=== PATIENT | female | born 1970 | race African-American/Black ===

== ENCOUNTER 2017-06-08 18:58 | Inpatient (IN) | payer MEDICARE, MEDICAID ==
[~2017-06-08] VITALS: Ht 121.9 cm; Wt 52.2 kg
[2017-06-08] MEDS ORDERED: METOPROLOL TART50 M1 ORAL (19:19)
[2017-06-08] MEDS ORDERED: NUTRISOURCE FI1 EACH PO (19:19)
[2017-06-08] MEDS ORDERED: MULTIVITAMINS1 EAC8 ORAL (19:19)
[2017-06-08] MEDS ORDERED: PEPCID40 MG PO (19:19)
[2017-06-08] MEDS ORDERED: METOCLOPRA10 MG/10 M ORAL (19:19)
[2017-06-08] MEDS ORDERED: PRO-STAT LIQUID30 ML ORAL (19:19)
[2017-06-08] MEDS ORDERED: RISPERDAL0.5 MG ORAL (19:19)
[2017-06-08] MEDS ORDERED: LACTULOSE20 GM/301 ORAL (19:19)
[2017-06-08] MEDS ORDERED: LORATADINE10 M3 PO (19:19)
[2017-06-08] MEDS ORDERED: METFORMIN HCL1000 M1 ORAL (19:19)
[2017-06-08] MEDS ORDERED: NOVOLOG100 UNIT/3 SUBQ (19:19)
[2017-06-08] MEDS ORDERED: LANTUS SOL100 UNIT/1 SUBQ (19:19)
[2017-06-08] MEDS ORDERED: Mylanta II UD 30ml ORAL ONE (19:30)
[2017-06-08] MEDS ORDERED: CRANBERRY450 M4 PO (19:43)
[2017-06-08] MEDS ORDERED: VALPROIC ACID250 MG PO (19:43)
[2017-06-08] MEDS ORDERED: CYCLOBENZAPRINE10 MG ORAL (19:43)
[2017-06-08] MEDS ORDERED: TRAMADOL HCL50 MG ORAL (19:43)
[2017-06-08] MEDS ORDERED: ACIDOPHILUS1 EAC6 PO (19:43)
[2017-06-08] MEDS ORDERED: ASPIRIN81 MG ORAL (19:43)
[2017-06-08] MEDS ORDERED: DILAUDID4 MG ORAL (19:43)
[2017-06-08] MEDS ORDERED: ZOLOFT100 MG ORAL (19:43)
[2017-06-08] MEDS ORDERED: ACETAMINOPHEN325 M1 ORAL (19:43)
[2017-06-08] MEDS ORDERED: VOLTAREN100 G1 TP (19:43)
[2017-06-08] MEDS ORDERED: VITAMIN B COMP1 EAC2 ORAL (19:43)
[2017-06-08] MEDS ORDERED: ARTIFICIAL TEAR15 ML BOTH EYES (19:43)
[2017-06-08] MEDS ORDERED: ATORVASTATIN CA10 MG ORAL (19:43)
[2017-06-08] MEDS ORDERED: ASCORBIC ACID500 MG ORAL (19:43)
[2017-06-08] MEDS ORDERED: FLONASE ALLERG9.9 ML NS (19:43)
[2017-06-08] MEDS ORDERED: SENNA8.6 M2 PO (19:43)
[2017-06-08] MEDS ORDERED: COZAAR25 MG ORAL (19:43)
[2017-06-08 20:00] LABS: APPEARANCE,URINE VERY CLOUDY; BASOPHILS % (AUTO) 1.2 % (0.0-2.0); BILIRUBIN, URINE NEGATIVE (NEGATIVE); COLOR,URINE PALE YELLOW; EOSINOPHILS % (AUTO) 1.2 % (0.0-3.0); GLUCOSE, URINE (UA) NEGATIVE (NEGATIVE); HEMATOCRIT 42.6 % (37.0-47.0); KETONES,URINE NEGATIVE (NEGATIVE); LEUKOCYTE ESTERASE ,URINE 2+ (NEGATIVE); MEAN CORPUSCULAR VOLUME 82 FL (80-99); MONOCYTES % (AUTO) 8.8 % (1.0-10.0); NEUTROPHILS % (AUTO) 55.8 % (45.0-75.0); NITRITE,URINE NEGATIVE (NEGATIVE); PH,URINE 7 (4.5-8.0); PLATELET COUNT 335 K/UL (150-450); PROTEIN,URINE 1+ (NEGATIVE); RED BLOOD COUNT 5.21 M/UL (4.20-5.40); RED CELL DISTRIBUTION WIDTH 13.8 % (11.6-14.8); UROBILINOGEN,URINE NORMAL MG/DL (0.0-1.0); WHITE BLOOD COUNT 8.7 K/UL (4.8-10.8)
[2017-06-08 20:05] LABS: ANION GAP 10 mmol/L (5-15); BLOOD UREA NITROGEN 12 mg/dL (7-18); CALCIUM 8.5 MG/DL (8.5-10.1); CARBON DIOXIDE 28 MMOL/L (21-32); CHLORIDE 99 MMOL/L (98-107); CREATININE 0.5 MG/DL (0.55-1.30); POTASSIUM 4.1 MMOL/L (3.5-5.1); SODIUM 137 MMOL/L (136-145)
[2017-06-08 20:07] LABS: INR 0.9 (0.9-1.1)
[2017-06-08 20:15] LABS: ALANINE AMINOTRANSFERASE 16 U/L (12-78); ALBUMIN 3.5 G/DL (3.4-5.0); ALBUMIN/GLOBULIN RATIO 0.8 (1.0-2.7); ALKALINE PHOSPHATASE 89 U/L (46-116); ASPARTATE AMINO TRANSFERASE 12 U/L (15-37); BILIRUBIN,TOTAL 0.2 MG/DL (0.2-1.0); CREATINE KINASE 23 U/L (26-308)
[2017-06-08] MEDS ORDERED: Morphine Sulfate 4mg/ml Inj IM ONE (20:15)
--- NOTE | 2017-06-08 21:29 | Emergency Room Report ---
History of Present Illness General Chief Complaint: Chest Pain Source: Patient, Medical Record, EMS Present Illness HPI Patient presents with chest pain. This has been for a week. It's worse today. She received aspirin and nitroglycerin in the field. It was a 10/10 and was reduced to 4/10 after treatment by paramedics. She minimally exerts herself. It's somewhat worse with swallowing and she feels radiate up into the center part of her chest from her stomach. Just some fullness in her stomach. There is no change in her bowels. Denies any vomiting, hematemesis, melena, hematochezia. The patient also states that she's recently treated with Macrobid. She claims that she had a urinary tract infection a week ago. She still thinks that she has a urinary tract infection at this time. She denies any fevers or chills. Chronic weakness. Spina bifida with short stature. DIRECT SUPPORT STAFF shunt. No headaches. No rashes, joint pain. Allergies: Coded Allergies: IODINE (Verified Allergy, Unknown, 01/15/11) LATEX (Verified Allergy, Unknown, 08/06/08) PENICILLINS (Verified Allergy, Unknown, 08/06/08) Patient History Past Medical History: see triage record Past Surgical History: other - Rashid rods and ventricular peritoneal shunt Social History: Denies: smoking, alcohol use, drug use Social History Narrative half-way facility Reviewed Nursing Documentation: PMH: Agreed; PSxH: Agreed Nursing Documentation-PM Past Medical History: No History, Except For Review of Systems All Other Systems: negative except mentioned in HPI Physical Exam Vital Signs Date Time Temp Pulse Resp B/P (MAP) Pulse Ox O2 Delivery O2 Flow Rate FiO2 06/08/17 18:59 97.5 110 16 106/45 97 Room Air 97.5 Sp02 EP Interpretation: reviewed, normal General Appearance: alert, GCS 15, other - Short stature with underdevelopment of lower extremities and left hemiparesis, Chronically Ill Eyes: bilateral eye normal inspection, bilateral eye PERRL, bilateral eye abnormal EOM - nystagmus ENT: moist mucus membranes Neck: supple Respiratory: chest non-tender, lungs clear, normal breath sounds Cardiovascular #1: tachycardia Cardiovascular #2: 2+ radial (R); 1+ femoral (R), 1+ femoral (L) Gastrointestinal: normal bowel sounds, non tender, soft Genitourinary: no CVA tenderness, other - robertson Musculoskeletal: back normal, other - Short stature with underdevelopment of lower extremities, X flexor contractures of the left upper arm Neurologic: alert, oriented x3, sensory intact, motor weakness - Lower extremities and left upper arm, other - lateral nystagmus Psychiatric: mood/affect normal Reflexes: 0 knee (R), 0 knee (L), 0 ankle (R), 0 ankle (L) Skin: normal color, no rash Medical Decision Making Diagnostic Impression: Primary Impression: Chest pain Qualified Codes: R07.89 - Other chest pain Additional Impressions: UTI (urinary tract infection) Qualified Codes: T83.511A - Infection and inflammatory reaction due to indwelling urethral catheter, initial encounter; N39.0 - Urinary tract infection , site not specified Spina bifida Qualified Codes: Q05.4 - Unspecified spina bifida with hydrocephalus ER Course Patient presents with chest pain. History is atypical however we need to exclude cardiac cause with EKG and labs. In addition a chest x-ray will be obtained. The patient retreated with Pepcid Zofran Mylanta. EKG shows no acute injury. Chest x-ray shows possible right-sided effusion with DIRECT SUPPORT STAFF shunt and Rashid rods. Labs are significant for negative troponin. Lactate was done because of the possibility of urinary tract infections and is elevated. Labs were drawn and IV was unable to be established. Due to elevated lactate IV and IV antibiotics are indicated. Fluids are begun and IV antibiotics are ordered. The patient is admitted to medical floor to the care of Dr. Haddad. Laboratory Tests Test 06/08/17 19:27 06/08/17 23:31 White Blood Count 8.7 K/UL (4.8-10.8) Red Blood Count 5.21 M/UL (4.20-5.40) Hemoglobin 13.0 G/DL (12.0-16.0) Hematocrit 42.6 % (37.0-47.0) Mean Corpuscular Volume 82 FL (80-99) Mean Corpuscular Hemoglobin 24.9 PG (27.0-31.0) L Mean Corpuscular Hemoglobin Concent 30.4 G/DL (32.0-36.0) L Red Cell Distribution Width 13.8 % (11.6-14.8) Platelet Count 335 K/UL (150-450) Mean Platelet Volume 5.9 FL (6.5-10.1) L Neutrophils (%) (Auto) 55.8 % (45.0-75.0) Lymphocytes (%) (Auto) 33.0 % (20.0-45.0) Monocytes (%) (Auto) 8.8 % (1.0-10.0) Eosinophils (%) (Auto) 1.2 % (0.0-3.0) Basophils (%) (Auto) 1.2 % (0.0-2.0) Prothrombin Time 9.1 SEC (9.30-11.50) L Prothrombin Time INR 0.9 (0.9-1.1) PTT 25 SEC (23-33) Urine Color Pale yellow Urine Appearance Very cloudy Urine pH 7 (4.5-8.0) Urine Specific [place] 1.010 (1.005-1.035) Urine Protein 1+ (NEGATIVE) H Urine Glucose (UA) Negative (NEGATIVE) Urine Ketones Negative (NEGATIVE) Urine Occult Blood 1+ (NEGATIVE) H Urine Nitrite Negative (NEGATIVE) Urine Bilirubin Negative (NEGATIVE) Urine Urobilinogen Normal MG/DL (0.0-1.0) Urine Leukocyte Esterase 2+ (NEGATIVE) H Urine RBC 2-4 /HPF (0 - 2) H Urine WBC 5-10 /HPF (0 - 2) H Urine Squamous Epithelial Cells None /LPF (NONE/OCC) Urine Calcium Oxalate Crystals Few /LPF (NONE) Urine Amorphous Sediment Many /LPF (NONE) H Urine Bacteria Many /HPF (NONE) H Sodium Level 137 MMOL/L (136-145) Potassium Level 4.1 MMOL/L (3.5-5.1) Chloride Level 99 MMOL/L (98-107) Carbon Dioxide Level 28 MMOL/L (21-32) Anion Gap 10 mmol/L (5-15) Blood Urea Nitrogen 12 mg/dL (7-18) Creatinine 0.5 MG/DL (0.55-1.30) L Estimate Glomerular Filtration Rate > 60 mL/min (>60) Glucose Level 126 MG/DL (74-106) H Lactic Acid Level 3.20 mmol/L (0.66-2.22) H 1.50 mmol/L (0.66-2.22) Calcium Level 8.5 MG/DL (8.5-10.1) Total Bilirubin 0.2 MG/DL (0.2-1.0) Aspartate Amino Transferase (AST) 12 U/L (15-37) L Alanine Aminotransferase (ALT) 16 U/L (12-78) Alkaline Phosphatase 89 U/L (46-116) Total Creatine Kinase 23 U/L (26-308) L Troponin I 0.000 ng/mL (0.000-0.056) Pro-B-Type Natriuretic Peptide 47 pg/mL (0-125) Total Protein 8.1 G/DL (6.4-8.2) Albumin 3.5 G/DL (3.4-5.0) Globulin 4.6 g/dL Albumin/Globulin Ratio 0.8 (1.0-2.7) L EKG Diagnostic Results Rate: tachycardiac Rhythm: other ST Segments: no acute changes Rhythm Strip Diag. Results EP Interpretation: yes Rhythm: no PVC's, no ectopy, other - Sinus tachycardia Chest X-Ray Diagnostic Results Chest X-Ray Diagnostic Results : Chest X-Ray Ordered: Yes # of Views/Limited/Complete: 1 View Indication: Chest Pain Interpretation: no consolidation, no pneumothorax, other - DIRECT SUPPORT STAFF shunt, right effusi and Rashid rods Impression: Other Electronically Signed by: Electronically signed by Odin Silva MD Last Vital Signs Date Time Temp Pulse Resp B/P (MAP) Pulse Ox O2 Delivery O2 Flow Rate FiO2 06/09/17 01:09 96.4 107 17 132/83 97 Room Air 2.0 96.4 Status: improved Disposition: ADMITTED INPATIENT Condition: Serious Referrals: NON PHYSICIAN (PCP) Odin Silva M.D. Jun 08, 2017 21:29
[2017-06-08] MEDS ORDERED: Sodium Chloride 500ML 500 ML IV ONE (22:45)
[2017-06-08] MEDS ORDERED: Vancomycin 500 MG in NS 110 ML IVPB ONE (22:45)
[2017-06-08] MEDS ORDERED: Morphine Sulfate 2mg/ml Inj IVP ONE (23:15)
[2017-06-08 23:56] VITALS: BP 123/79
[2017-06-09 00:34] VITALS: BP 132/83
[2017-06-09] MEDS ORDERED: Cyclobenzaprine 10mg Tab ORAL PRN (03:45)
[2017-06-09] MEDS ORDERED: Metoclopramide 10mg/10ml Liq ORAL PRN (03:45)
[2017-06-09] MEDS ORDERED: Milk of Magnesia 30ml Ud ORAL PRN (03:45)
[2017-06-09] MEDS ORDERED: Zolpidem 5mg tab ORAL PRN (03:45)
[2017-06-09] MEDS ORDERED: Lactulose 20gm/30ml UDC ORAL PRN (03:45)
[2017-06-09] MEDS ORDERED: traMADol 50mg tab ORAL PRN (03:45)
[2017-06-09] MEDS ORDERED: Norco 5mg/325mg tab ORAL PRN (03:45)
[2017-06-09 04:30] VITALS: BP 128/72
[2017-06-09] MEDS: NovoLOG Insulin Flexpen SUBQ SCH ×4 (06:11→21:00)
[2017-06-09] MEDS: Norco 5mg/325mg tab ORAL PRN ×2 (06:15→23:18)
[2017-06-09] MEDS ORDERED: NovoLOG Insulin Flexpen SUBQ SCH (06:30)
[2017-06-09 08:00] VITALS: BP 101/51
[2017-06-09] MEDS: Artificial Tears 1.4% Op Soln BOTH EYES SCH ×3 (09:00→17:51)
[2017-06-09] MEDS: Losartan 25mg tab ORAL SCH (09:00)
[2017-06-09] MEDS: Metoprolol Tartrate 50mg tab ORAL SCH (09:00)
[2017-06-09] MEDS ORDERED: Flonase Nasal Inhaler 16gm NASAL PRN (09:00)
--- NOTE | 2017-06-09 09:20 | Diagnostic Imaging Report ---
Indication: Reason For Exam: CP Technique: XRAY Chest 1v Comparison:09/30/2011 Findings: The heart is normal in size. There are Rashid rods in the spine. Haziness is noted in the right lung base. There is a ventriculoperitoneal shunt tube over the right chest. Left lung is clear. There is slight blunting of the right costophrenic angle. There is gaseous distention of the stomach. Impression: Rashid rods in the spine. Haziness the right base with slight blunting of the right costophrenic angle. This may represent atelectasis or pleural fluid or early infiltrate. Gastric distention. 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
[2017-06-09] MEDS: Sennosides 8.6mg ORAL SCH ×2 (09:39→17:52)
[2017-06-09] MEDS: Lactobacillus-GG tablet ORAL SCH (09:39)
[2017-06-09] MEDS: Aspirin Baby 81mg ORAL SCH (09:40)
[2017-06-09] MEDS: Sertraline 100mg tab ORAL SCH (09:40)
[2017-06-09] MEDS: Multivitamin w/Minerals tab ORAL SCH (09:40)
[2017-06-09] MEDS: Ascorbic Acid 500mg tab ORAL SCH ×2 (09:40→17:51)
[2017-06-09] MEDS: metFORMIN 500mg tab ORAL SCH ×2 (09:40→17:51)
[2017-06-09] MEDS: Heparin 5000 units/ml inj SUBQ SCH ×2 (09:41→21:30)
[2017-06-09 12:00] VITALS: BP 103/54
[2017-06-09 12:31] LABS: ANION GAP 6 mmol/L (5-15); BLOOD UREA NITROGEN 7 mg/dL (7-18); CALCIUM 7.7 MG/DL (8.5-10.1); CARBON DIOXIDE 27 MMOL/L (21-32); CHLORIDE 107 MMOL/L (98-107); CREATININE 0.3 MG/DL (0.55-1.30); POTASSIUM 4.6 MMOL/L (3.5-5.1); SODIUM 140 MMOL/L (136-145)
[2017-06-09 12:47] LABS: BASOPHILS % (AUTO) 0.6 % (0.0-2.0); EOSINOPHILS % (AUTO) 1.6 % (0.0-3.0); HEMATOCRIT 36.8 % (37.0-47.0); HEMOGLOBIN 11.5 G/DL (12.0-16.0); LYMPHOCYTES % (AUTO) 30.3 % (20.0-45.0); MEAN CORPUSCULAR VOLUME 83 FL (80-99); NEUTROPHILS % (AUTO) 56.5 % (45.0-75.0); PLATELET COUNT 253 K/UL (150-450); RED BLOOD COUNT 4.45 M/UL (4.20-5.40); RED CELL DISTRIBUTION WIDTH 13.8 % (11.6-14.8); WHITE BLOOD COUNT 6.3 K/UL (4.8-10.8)
[2017-06-09 16:00] VITALS: BP 97/49
--- NOTE | 2017-06-09 16:45 | Consultation ---
DATE OF CONSULTATION: 06/09/2017 INFECTIOUS DISEASES CONSULTATION CONSULTING PHYSICIAN: Morgan Goyal M.D. REFERRING PHYSICIAN: Sebastian Haddad M.D. REASON FOR CONSULTATION: Urinary tract infection. HISTORY OF PRESENTING ILLNESS: This is a 46-year-old lady with history of spina bifida, status post MOLD MAKER shunt placement, who came in with urinary tract infection. She was recently treated with Macrobid. An Infectious Diseases consultation has been obtained for antibiotics. PAST MEDICAL HISTORY: 1. History of spina bifida. 2. MOLD MAKER shunt placement. 3. History of Rashid caitlyn. SOCIAL HISTORY: She does not smoke, drink, or use drugs. FAMILY HISTORY: Noncontributory. REVIEW OF SYSTEMS: CONSTITUTIONAL: No fever or chills. RESPIRATORY: She does have cough and shortness of breath. CARDIAC: No chest pain. No palpitation. No dizziness. No syncope. GASTROINTESTINAL: She did have nausea and vomiting yesterday. No abdominal pain or diarrhea. MEDICATIONS: As an inpatient, she is on atorvastatin, Risperdal, ascorbic acid, aspirin, Artificial Tears, losartan, metformin, metoprolol, multivitamin, Senokot, Zoloft, vitamin B complex, cefepime, Protonix, subcutaneous heparin, famotidine, fluticasone, Lactobacillus, insulin, valproic acid, Tylenol, Flexeril, lactulose, Reglan, Zofran, [place], Ambien, Mylanta, milk of magnesia. ALLERGIES: 1. Penicillin. 2. Latex. 3. Iodine. PHYSICAL EXAMINATION: VITAL SIGNS: Temperature of 97.2, T-max of 98.9, pulse of 89, respiratory rate 16, blood pressure 101/51, O2 saturation of 99%. HEENT: Pupils equally reactive to light and accommodation. Mouth appears clean without thrush. NECK: Supple. No adenopathy. No JVD. CARDIOVASCULAR: Regular rate and rhythm. No murmurs. LUNGS: Clear to auscultation bilaterally. No crackles. No wheezes. ABDOMEN: Soft and nontender. No organomegaly. Ostomy noted. EXTREMITIES: No cyanosis, no clubbing, no edema. LABORATORY DATA: White count 8.7, hemoglobin 13, hematocrit 42.6, MCV 82, platelet count of 335,000 with neutrophils of 55%. Sodium 137, potassium 4.1, chloride 99, bicarbonate 28, BUN 12, creatinine 0.5, glucose 126, calcium 8.5, total bilirubin 0.2, AST 12, ALT 16, alkaline phosphatase 89. CK of 23 troponin 0 by admitted peptide 47 total protein 8.1. Albumin 3.5 UA showing 5 to 10 white cells. Urine culture growing gram-negative rods more than 100,000 colonies. Chest x-ray showing Rashid rods in the spine, haziness in the right base with blunting of the CP angle, this may represent atelectasis or early infiltrate, MOLD MAKER shunt placement. ASSESSMENT: This is a 46-year-old lady with history of spina bifida and MOLD MAKER shunt placement, who comes in with: 1. Gram-negative urinary tract infection. 2. Spina bifida. 3. Possible pneumonia. PLAN: 1. Continue cefepime. 2. We will follow up cultures and adjust antibiotics accordingly. I would like to thank Dr. Haddad for this consultation. Morgan Goyal M.D. DR: Jessica JOB#: [id number] CC: Sebastian Haddad M.D.; Fax#: [phone]
--- NOTE | 2017-06-09 17:45 | History and Physical Report ---
DATE OF ADMISSION: 06/08/2017 REASON FOR ADMISSION: Urinary tract infection and pain. HISTORY OF PRESENT ILLNESS: This is a 46-year-old female. She resides in a [facility]dc. The patient has a history of TILE INSTALLER shunt, Rashid caitlyn. She has chronic pain. The patient notes that she is having chest discomfort. The patient has taken aspirin and nitroglycerin in the field, although not fully improved. The patient notes the pain is radiating throughout her body. She has fullness in her stomach. The patient is seen and evaluated, is felt to have urinary tract infection. In the emergency room, the patient has a right-sided effusion, TILE INSTALLER shunt, and Rashid caitlyn. The patient was given IV antibiotics and admitted to the floor. She has no significant shortness of breath. The patient's oxygenation is adequate. PAST MEDICAL HISTORY: Noted and reviewed. Notable for Rashid caitlyn, spina bifida, TILE INSTALLER shunt, hypercholesterolemia, muscle spasms, chronic rhinitis, diabetes, and hypertension. MEDICATIONS: Reviewed. ALLERGIES: Reviewed. SOCIAL HISTORY: The patient is a [facility]dc patient. The patient is fully disabled. REVIEW OF SYSTEMS: Otherwise negative. PHYSICAL EXAMINATION: GENERAL: A well-developed female, comfortable at present. VITAL SIGNS: 99% on room air, blood pressure 101/51, temperature 97.2, pulse 89, and respirations 16. HEENT: Negative. NECK: Supple. No adenopathy. HEENT: Extraocular movements are grossly intact. LUNGS: With fairly good air entry overall. No rhonchi or wheezes. CARDIAC: S1, S2. Regular rhythm without murmurs, rubs, or gallops. ABDOMEN: Soft, nontender, and nondistended. EXTREMITIES: No cyanosis, clubbing, or edema. NEUROLOGICAL: Weak diffusely, but able to move all extremities. Alert. Able to verbalize needs. LABORATORY DATA: Reviewed. CBC essentially normal. Electrolytes fairly normal, although the lactic acid is elevated. The patient's urinalysis appears to be consistent with urinary tract infection with 5 to 10 white cells. IMPRESSION: 1. Possible urinary tract infection, severe pain, chronic overall. 2. History of Rashid caitlyn. 3. Spina bifida per history. 4. Hypercholesteremia. 5. Diabetes. 6. Hypertension per history. 7. Ventriculoperitoneal shunt. RECOMMENDATIONS: Supportive care. Pain control. IV antibiotics. ID evaluation. Obtain duplex lower extremity to rule out DVT. Maintain all medications from the fdc. Monitor clinically. Monitor blood pressure. Monitor blood sugars and support clinically. Sebastian Haddad M.D. DR: BALTAZAR JOB#: [id number] CC:
--- NOTE | 2017-06-09 18:07 | Cardiology Report ---
APPROVED REPORT EKG Measurement Heart [id number] Sinus tachycardia Low voltage QRS Nonspecific T wave abnormality Abnormal ECG
[2017-06-09 21:00] VITALS: BP 101/64
[2017-06-09] MEDS: Levemir Flexpen SUBQ SCH (21:30)
[2017-06-10] VITALS: BP 103/51
[2017-06-10 04:00] VITALS: BP 100/59
[2017-06-10] MEDS: NovoLOG Insulin Flexpen SUBQ SCH ×4 (06:30→21:00)
[2017-06-10 08:43] VITALS: BP 101/42
[2017-06-10] MEDS: metFORMIN 500mg tab ORAL SCH ×2 (08:52→17:18)
[2017-06-10] MEDS: Sertraline 100mg tab ORAL SCH (08:52)
[2017-06-10] MEDS: Ascorbic Acid 500mg tab ORAL SCH ×2 (08:52→17:18)
[2017-06-10] MEDS: Sennosides 8.6mg ORAL SCH ×2 (08:52→17:18)
[2017-06-10] MEDS: Aspirin Baby 81mg ORAL SCH (08:52)
[2017-06-10] MEDS: Multivitamin w/Minerals tab ORAL SCH (08:52)
[2017-06-10] MEDS: Lactobacillus-GG tablet ORAL SCH (08:52)
[2017-06-10] MEDS: Metoprolol Tartrate 50mg tab ORAL SCH (08:53)
[2017-06-10] MEDS: Losartan 25mg tab ORAL SCH (08:53)
[2017-06-10] MEDS: Heparin 5000 units/ml inj SUBQ SCH ×2 (08:54→20:59)
[2017-06-10] MEDS: Artificial Tears 1.4% Op Soln BOTH EYES SCH ×3 (08:54→17:18)
--- NOTE | 2017-06-10 09:16 | Infectious Diseases Prog Note ---
Assessment/Plan Assessment/Plan A; E. 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 INSTRUCTOR shunt P: continue Cefepime Subjective ROS Limited/Unobtainable: Yes Allergies: Coded Allergies: IODINE (Verified Allergy, Unknown, 01/15/11) LATEX (Verified Allergy, Unknown, 08/06/08) PENICILLINS (Verified Allergy, Unknown, 08/06/08) Uncoded Allergies: LACTOSE INTOLERANT (Allergy, Unknown, 06/10/17) POLLEN (Allergy, Unknown, 06/10/17) Objective Vital Signs Last 24 Hour Vital Signs Date Time Temp Pulse Resp B/P (MAP) Pulse Ox O2 Delivery O2 Flow Rate FiO2 06/10/17 08:53 86 101/42 06/10/17 08:53 101/42 06/10/17 08:43 86 101/42 06/10/17 04:00 97.0 92 19 100/59 99 97.0 06/10/17 00:00 98.2 96 18 103/51 97 98.2 06/09/17 21:00 98.1 91 18 101/64 100 98.1 06/09/17 16:00 Nasal Cannula 2.0 06/09/17 16:00 98.1 94 18 97/49 100 98.1 06/09/17 12:00 Nasal Cannula 2.0 06/09/17 12:00 97.9 91 18 103/54 100 97.9 Height (Feet): 4 Height (Inches): 0.00 Weight (Pounds): 115 General Appearance: no acute distress HEENT: mucous membranes moist Respiratory/Chest: lungs clear Cardiovascular: normal rate Abdomen: soft, non tender Genitourinary: other - cystostomy Extremities: no edema Neurologic/Psychiatric: alert, responsive Microbiology Date/Time Source Procedure Growth Status 06/08/17 19:27 Urine,Clean Catch Urine Culture - Final Escherichia Coli Complete Laboratory Tests Test 06/09/17 11:50 White Blood Count 6.3 K/UL (4.8-10.8) Red Blood Count 4.45 M/UL (4.20-5.40) Hemoglobin 11.5 G/DL (12.0-16.0) L Hematocrit 36.8 % (37.0-47.0) L Mean Corpuscular Volume 83 FL (80-99) Mean Corpuscular Hemoglobin 25.9 PG (27.0-31.0) L Mean Corpuscular Hemoglobin Concent 31.4 G/DL (32.0-36.0) L Red Cell Distribution Width 13.8 % (11.6-14.8) Platelet Count 253 K/UL (150-450) Mean Platelet Volume 6.2 FL (6.5-10.1) L Neutrophils (%) (Auto) 56.5 % (45.0-75.0) Lymphocytes (%) (Auto) 30.3 % (20.0-45.0) Monocytes (%) (Auto) 11.0 % (1.0-10.0) H Eosinophils (%) (Auto) 1.6 % (0.0-3.0) Basophils (%) (Auto) 0.6 % (0.0-2.0) Sodium Level 140 MMOL/L (136-145) Potassium Level 4.6 MMOL/L (3.5-5.1) Chloride Level 107 MMOL/L (98-107) Carbon Dioxide Level 27 MMOL/L (21-32) Anion Gap 6 mmol/L (5-15) Blood Urea Nitrogen 7 mg/dL (7-18) Creatinine 0.3 MG/DL (0.55-1.30) L Estimat Glomerular Filtration Rate > 60 mL/min (>60) Glucose Level 87 MG/DL (74-106) Hemoglobin A1c 6.5 % (4.3-6.0) H Calcium Level 7.7 MG/DL (8.5-10.1) L Current Medications Medications (Trade) Dose Ordered Sig/Jeniffer Route PRN Reason Start Time Stop Time Status Last Admin Dose Admin Acetaminophen (Tylenol) 650 mg Q6H PRN ORAL Mild Pain/Temp > 100.5 06/09/17 03:45 07/09/17 03:44 Acetaminophen/ Hydrocodone Bitart ([place] 5/325) 1 tab Q4H PRN ORAL Moderate Pain (Pain Scale 4-6) 06/09/17 03:45 06/16/17 03:44 06/09/17 17:56 Acetaminophen/ Hydrocodone Bitart ([place] 5/325) 2 tab Q4H PRN ORAL Severe Pain (Pain Scale 7-10) 06/09/17 03:45 06/16/17 03:44 06/09/17 23:18 Al Hydroxide/Mg Hydroxide (Mylanta) 30 ml Q4HR PRN ORAL For Pain 06/09/17 03:45 07/09/17 03:44 Artificial Tears ([place]-Tears) 1 drop TID BOTH EYES 06/09/17 09:00 07/09/17 08:59 06/10/17 08:54 Ascorbic Acid (Vitamin C) 500 mg TWICE A DAY ORAL 06/09/17 09:00 07/09/17 08:59 06/10/17 08:52 Aspirin (ASA) 81 mg DAILY ORAL 06/09/17 09:00 07/09/17 08:59 06/10/17 08:52 Atorvastatin Calcium (Lipitor) 10 mg BEDTIME ORAL 06/09/17 21:00 07/09/17 20:59 06/09/17 21:24 Cefepime HCl 1 gm/ Dextrose 50 ml @ 100 mls/hr Q24H IVPB 06/09/17 09:00 06/16/17 08:59 06/10/17 08:58 Cyclobenzaprine HCl (Flexeril) 10 mg Q6H PRN ORAL Muscle Spasm 06/09/17 03:45 07/09/17 03:44 Dextrose (Dextrose 50%) STAT PRN IV Hypoglycemia 06/09/17 03:45 07/09/17 03:44 Famotidine (Pepcid) 20 mg DAILY ORAL 06/09/17 09:00 07/09/17 08:59 06/10/17 08:52 Fluticasone Propionate (Flonase) 2 spray DAILY PRN NASAL ALLERGY 06/09/17 09:00 07/09/17 08:59 Heparin Sodium (Porcine) (Heparin 5000 units/ml) 5,000 units EVERY 12 HOURS SUBQ 06/09/17 09:00 07/09/17 08:59 06/10/17 08:54 Insulin Aspart (NovoLOG) BEFORE MEALS AND HS SUBQ 06/09/17 06:30 07/09/17 06:29 Insulin Detemir (Levemir) 12 units BEDTIME SUBQ 06/09/17 21:00 07/09/17 20:59 06/09/17 21:30 Lactobacillus Acidophilus (Culturelle) 1 tab DAILY ORAL 06/09/17 09:00 07/09/17 08:59 06/10/17 08:52 Lactulose (Cephulac) 20 gm DAILY PRN ORAL Constipation 06/09/17 03:45 07/09/17 03:44 Losartan Potassium (Cozaar) 25 mg DAILY ORAL 06/09/17 09:00 07/09/17 08:59 Magnesium Hydroxide (Mom) 30 ml DAILYPRN PRN ORAL Constipation 06/09/17 03:45 07/09/17 03:44 Metformin HCl (Glucophage) 1,000 mg BID ORAL 06/09/17 09:00 07/09/17 08:59 06/10/17 08:52 Metoclopramide HCl (Reglan) 10 mg EVERY 6 HOURS PRN ORAL Nausea & Vomiting 06/09/17 03:45 07/09/17 03:44 Metoprolol Tartrate (Lopressor) 50 mg DAILY ORAL 06/09/17 09:00 07/09/17 08:59 Multivitamins Therapeutic (Therapeutic Multivitamin) 1 ea DAILY ORAL 06/09/17 09:00 07/09/17 08:59 06/10/17 08:52 Ondansetron HCl (Zofran) 4 mg Q6H PRN IVP Nausea & Vomiting 06/09/17 03:45 07/09/17 03:44 Pantoprazole (Protonix) 40 mg DAILY ORAL 06/09/17 09:00 07/09/17 08:59 06/10/17 08:52 Risperidone (RisperDAL) 0.5 mg QHS ORAL 06/09/17 21:00 07/09/17 20:59 06/09/17 21:26 Sennosides (Senokot) 1 tab BID ORAL 06/09/17 09:00 07/09/17 08:59 06/10/17 08:52 Sertraline HCl (Zoloft) 100 mg DAILY ORAL 06/09/17 09:00 07/09/17 08:59 06/10/17 08:52 Sodium Chloride 1,000 ml @ 100 mls/hr Q10H IV 06/09/17 06:00 07/09/17 05:59 06/10/17 05:25 Valproic Acid (Depakene) 250 mg Q8HR ORAL 06/09/17 06:00 07/09/17 05:59 06/10/17 05:21 Vitamin B Complex (Vitamin B Complex) 1 ea DAILY ORAL 06/09/17 09:00 07/09/17 08:59 06/10/17 08:52 Zolpidem Tartrate (Ambien) 5 mg HSPRN PRN ORAL Insomnia 06/09/17 03:45 06/16/17 03:44 JULISA HARGROVE Jun 10, 2017 09:16
[2017-06-10 12:00] VITALS: BP 97/42
--- NOTE | 2017-06-10 12:15 | General Progress Note ---
Assessment/Plan Assessment/Plan IMPRESSION: 1. urinary tract infection 2. History of Rashid caitlyn. 3. Spina bifida per history. 4. Hypercholesteremia. 5. Diabetes. 6. Hypertension per history. 7. Ventriculoperitoneal shunt. PLAN ID noted po antibiotics in am pain management dc planning to snf in am if all stable impression, plan, and exam edited and reviewed in detail care discussed with RN Subjective Allergies: Coded Allergies: IODINE (Verified Allergy, Unknown, 01/15/11) LATEX (Verified Allergy, Unknown, 08/06/08) PENICILLINS (Verified Allergy, Unknown, 08/06/08) Uncoded Allergies: LACTOSE INTOLERANT (Allergy, Unknown, 06/10/17) POLLEN (Allergy, Unknown, 06/10/17) Subjective care noted stable pain better ID noted Objective Last 24 Hour Vital Signs Date Time Temp Pulse Resp B/P (MAP) Pulse Ox O2 Delivery O2 Flow Rate FiO2 06/10/17 08:53 86 101/42 06/10/17 08:53 101/42 06/10/17 08:43 86 101/42 06/10/17 04:00 97.0 92 19 100/59 99 97.0 06/10/17 00:00 98.2 96 18 103/51 97 98.2 06/09/17 21:00 98.1 91 18 101/64 100 98.1 06/09/17 16:00 Nasal Cannula 2.0 06/09/17 16:00 98.1 94 18 97/49 100 98.1 Intake and Output 06/09/17 06/10/17 19:00 07:00 Intake Total 1290 ml 1560 ml Output Total 500 ml 600 ml Balance 790 ml 960 ml Intake Oral 90 ml 360 ml IV Total 1200 ml 1200 ml Output Urine Total 500 ml 600 ml Height (Feet): 4 Height (Inches): 0.00 Weight (Pounds): 115 Objective GENERAL: A well-developed female, comfortable at present. HEENT: Negative. NECK: Supple. No adenopathy. HEENT: Extraocular movements are grossly intact. LUNGS: With fairly good air entry overall. No rhonchi or wheezes. CARDIAC: S1, S2. Regular rhythm without murmurs, rubs, or gallops. ABDOMEN: Soft, nontender, and nondistended. EXTREMITIES: No cyanosis, clubbing, or edema. NEUROLOGICAL: Weak and able to move all extremities. Alert. Able to verbalize needs. ASHLEY PAPPAS Jun 10, 2017 12:15
[2017-06-10 16:00] VITALS: BP 94/51
[2017-06-10] MEDS: Norco 5mg/325mg tab ORAL PRN (17:29)
[2017-06-10 20:00] VITALS: BP 122/61
[2017-06-10] MEDS: Levemir Flexpen SUBQ SCH (21:00)
[2017-06-11] VITALS: BP 117/57
[2017-06-11] MEDS: NovoLOG Insulin Flexpen SUBQ SCH ×3 (06:06→16:30)
[2017-06-11] MEDS: Artificial Tears 1.4% Op Soln BOTH EYES SCH ×3 (08:22→17:33)
[2017-06-11] MEDS: Losartan 25mg tab ORAL SCH (08:23)
[2017-06-11] MEDS: Sertraline 100mg tab ORAL SCH (08:24)
[2017-06-11] MEDS: Aspirin Baby 81mg ORAL SCH (08:24)
[2017-06-11] MEDS: Lactobacillus-GG tablet ORAL SCH (08:24)
[2017-06-11] MEDS: Metoprolol Tartrate 50mg tab ORAL SCH (08:24)
[2017-06-11] MEDS: Multivitamin w/Minerals tab ORAL SCH (08:24)
[2017-06-11] MEDS: metFORMIN 500mg tab ORAL SCH ×2 (08:24→17:32)
[2017-06-11] MEDS: Ascorbic Acid 500mg tab ORAL SCH ×2 (08:25→17:32)
[2017-06-11] MEDS: Sennosides 8.6mg ORAL SCH ×2 (08:25→17:32)
[2017-06-11] MEDS: Heparin 5000 units/ml inj SUBQ SCH (08:26)
[2017-06-11 08:33] VITALS: BP 117/58
--- NOTE | 2017-06-11 12:34 | Infectious Diseases Prog Note ---
Assessment/Plan Assessment/Plan antibiotics : cefepime A 1. e.coli UTI 2. pneumonia 3. spina bifida P 1. d/c cefepime 2. start and continue ceftriaxone 4 more days 3. will follow up cultures Subjective ROS Limited/Unobtainable: Yes Allergies: Coded Allergies: IODINE (Verified Allergy, Unknown, 01/15/11) LATEX (Verified Allergy, Unknown, 08/06/08) PENICILLINS (Verified Allergy, Unknown, 08/06/08) Uncoded Allergies: LACTOSE INTOLERANT (Allergy, Unknown, 06/10/17) POLLEN (Allergy, Unknown, 06/10/17) Objective Vital Signs Last 24 Hour Vital Signs Date Time Temp Pulse Resp B/P (MAP) Pulse Ox O2 Delivery O2 Flow Rate FiO2 06/11/17 08:33 97.8 80 19 117/58 99 Nasal Cannula 2.0 97.8 06/11/17 08:24 98 117/57 06/11/17 08:23 117/57 06/11/17 00:00 Nasal Cannula 2.0 06/11/17 00:00 97.7 98 18 117/57 98 97.7 06/10/17 20:00 Nasal Cannula 2.0 06/10/17 20:00 97.7 97 20 122/61 97 97.7 06/10/17 16:00 97.9 95 19 94/51 99 97.9 Height (Feet): 4 Height (Inches): 0.00 Weight (Pounds): 115 Respiratory/Chest: lungs clear Cardiovascular: normal rate, regular rhythm, no gallop/murmur Abdomen: soft, non tender Extremities: no edema Microbiology Date/Time Source Procedure Growth Status 06/08/17 19:27 Urine,Clean Catch Urine Culture - Final Escherichia Coli Complete FAM VALENZUELA Jun 11, 2017 12:34
[2017-06-11 12:35] VITALS: BP 103/49
[2017-06-11] MEDS ORDERED: cefTRIAXone 1 GM in D5W 55 ML IVPB SCH (14:00)
[2017-06-11] MEDS: Norco 5mg/325mg tab ORAL PRN (14:34)
--- NOTE | 2017-06-11 15:15 | General Progress Note ---
Assessment/Plan Assessment/Plan IMPRESSION: 1. urinary tract infection 2. History of Rashid caitlyn. 3. Spina bifida per history. 4. Hypercholesteremia. 5. Diabetes. 6. Hypertension per history. 7. Ventriculoperitoneal shunt. PLAN ID noted po antibiotics and dc planning pain management dc planning to snf today impression, plan, and exam edited and reviewed in detail care discussed with RN Subjective Allergies: Coded Allergies: IODINE (Verified Allergy, Unknown, 01/15/11) LATEX (Verified Allergy, Unknown, 08/06/08) PENICILLINS (Verified Allergy, Unknown, 08/06/08) Uncoded Allergies: LACTOSE INTOLERANT (Allergy, Unknown, 06/10/17) POLLEN (Allergy, Unknown, 06/10/17) Subjective care noted stable and at baseline pain better ID noted Objective Last 24 Hour Vital Signs Date Time Temp Pulse Resp B/P (MAP) Pulse Ox O2 Delivery O2 Flow Rate FiO2 06/11/17 14:34 97.7 06/11/17 12:35 97.7 93 18 103/49 96 Nasal Cannula 2.0 97.7 06/11/17 08:33 97.8 80 19 117/58 99 Nasal Cannula 2.0 97.8 06/11/17 08:24 98 117/57 06/11/17 08:23 117/57 06/11/17 00:00 Nasal Cannula 2.0 06/11/17 00:00 97.7 98 18 117/57 98 97.7 06/10/17 20:00 Nasal Cannula 2.0 06/10/17 20:00 97.7 97 20 122/61 97 97.7 06/10/17 16:00 97.9 95 19 94/51 99 97.9 Intake and Output 06/10/17 06/11/17 19:00 07:00 Intake Total 1290 ml 1730 ml Output Total 750 ml 800 ml Balance 540 ml 930 ml Intake Oral 240 ml 480 ml IV Total 1050 ml 1250 ml Output Urine Total 750 ml 800 ml # Voids 1 Height (Feet): 4 Height (Inches): 0.00 Weight (Pounds): 115 Objective GENERAL: A well-developed female, comfortable at present. HEENT: Negative. NECK: Supple. No adenopathy. HEENT: Extraocular movements are grossly intact. LUNGS: With fairly good air entry overall. No rhonchi or wheezes. CARDIAC: S1, S2. Regular rhythm without murmurs, rubs, or gallops. ABDOMEN: Soft, nontender, and nondistended. EXTREMITIES: No cyanosis, clubbing, or edema. NEUROLOGICAL: Weak and able to move all extremities. Alert. Able to verbalize needs. ASHLEY PAPPAS Jun 11, 2017 15:15
[2017-06-11 16:07] VITALS: BP 105/50
[2017-06-11] MEDS ORDERED: BACTRIM DS TAB1 EAC1 ORAL ×2 (16:49→16:51)
[2017-06-11] MEDS ORDERED: Tubing IV Secondary IV ONE (18:47)
--- NOTE | 2017-06-12 10:38 | Discharge Summary ---
Discharge Summary Discharge Summary Discharge Summary DATE OF ADMISSION: 06/08/2017 DATE OF DISCHARGE: 06/11/2017 REASON FOR ADMISSION: 46-year-old female, resident of the nursing home facility, with past medical history of spina bifida, hypertension, diabetes,history of CVA with left hemiparesis, urostomy, ventriculoperitoneal shunt, presented with complaints of chest pain for one week. She received aspirin and nitroglycerin in the field and felt better. Upon questioning, was found that pain was worse with swallowing and felt like radiating from the stomach to middle of the chest. No change in bowel movements. Patient denied vomiting, hematemesis, melena, hematochezia. No shortness of breath. Upon evaluation in emergency department patient was tachycardiac, otherwise vital signs were stable, afebrile. Laboratory workup revealed no leukocytosis, elevated lactic acid -3.2. Stable hemoglobin and hematocrit. Urinalysis with evidence of UTI. Electrolytes and renal parameters were within normal limits. Troponin was negative. pro BNP -47. EKG showed normal sinus rhythm, no acute ischemic changes. Chest x-ray revealed no consolidation, no pneumothorax. 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 Patient was treated in ED with Pepcid , Zofran and Mylanta. Patient was started on IV fluids and IV antibiotics. Patient was admitted to Medical Surgical Floor for further management with diagnosis of urinary tract infection, chronic severe pain, spina bifida. HOSPITAL COURSE: Patient was admitted to medical surgical floor . Patient was started on empiric antibiotic and IV fluids. ID consult was requested. Urine culture revealed Escherichia coli. Antibiotic regimen was optimized based on culture. Patient was discharged on oral antibiotics to complete the course as advised by infectious disease specialist. Pain management was provided. Repeated lactic acid down to normal- 1.5. Venous duplex bilateral lower extremity was negative. DVT and GI prophylaxis provided. Blood pressure was managed with beta carrillo and angiotensin receptor carrillo, and was stable. Antiplatelet therapy with aspirin was continued along with statin. Blood sugar was managed with metformin and Levemir. Hemoglobin A1c- 6.5, at goal. Bowel regimen was instituted. Patient was stable for discharge back to nursing home [facility] FINAL DIAGNOSES: 1. Urinary tract infection with Escherichia coli. 2. Spina bifida 3. Hypertension. 4. Diabetes mellitus. 5. Ventriculoperitoneal shunt. 6 Hypercholesteremia 7. History of Rashid rods. DISCHARGE MEDICATIONS: See Medication Reconciliation list. DISCHARGE INSTRUCTIONS: Patient was discharged to the nursing home facility. Follow up with medical doctor at the facility. I have been assigned to dictate discharge summary for this account. I was not involved in the patient's management. Jorge GonzalesFernanda lauren NP Jun 12, 2017 10:38
--- NOTE | 2017-06-14 08:15 | Diagnostic Imaging Report ---
APPROVED REPORT CPT Code: 20672 Present Symptoms Comments: BILATERAL LEGS PAIN. BILATERAL: Imaging reveals a patent deep venous system bilaterally. There is no evidence of thrombus within the femoral, popliteal or tibial segments. The greater saphenous veins are also within normal limits. Doppler indicates normal spontaneous flow within these segments.
== END 2017-06-11 18:48 | DRG 690 ==
LOC: EDBD 18:58 → EMR 19:20 → 4W 22:24 → EDBEDREQ 22:47
DX: N39.0 Urinary tract infection, site not specified (principal); I69.354 Hemiplegia and hemiparesis following cerebral infarction affecting left non-dominant side; Q05.9 Spina bifida, unspecified; B96.20 Unspecified Escherichia coli [E. coli] as the cause of diseases classified elsewhere; E11.9 Type 2 diabetes mellitus without complications; E78.5 Hyperlipidemia, unspecified; Z98.2 Presence of cerebrospinal fluid drainage device; I10 Essential (primary) hypertension; Z88.0 Allergy status to penicillin; Z88.8 Allergy status to other drugs, medicaments and biological substances
CPT/HCPCS: 36415; 71045; 80048; 80053; 81003; 82550; 82962; 83036; 83605; 83880; 84484; 85025; 85610; 85730; 87086; 87181; 93005; 93970; 99285; J1815; J2405; S5561

== ENCOUNTER 2019-08-03 13:15 | Inpatient (IN) | payer MEDICARE, MEDICAID ==
[~2019-08-03] VITALS: Ht 162.6 cm; Wt 68.5 kg
[~2019-08-03 13:15] MED LIST: ACETAMINOPHEN325 M1 ORAL; ACIDOPHILUS1 EAC6 PO; ARTIFICIAL TEAR15 ML BOTH EYES; ASCORBIC ACID500 MG ORAL; ASPIRIN81 MG ORAL; ATORVASTATIN CA10 MG ORAL; BACTRIM DS TAB1 EAC1 ORAL; COZAAR25 MG ORAL; CRANBERRY450 M4 PO; CYCLOBENZAPRINE10 MG ORAL; DILAUDID4 MG ORAL; FLONASE ALLERG9.9 ML NS; LACTULOSE20 GM/301 ORAL; LANTUS SOL100 UNIT/1 SUBQ; LORATADINE10 M3 PO; METFORMIN HCL1000 M1 ORAL; METOCLOPRA10 MG/10 M ORAL; METOPROLOL TART50 M1 ORAL; MULTIVITAMINS1 EAC8 ORAL; NOVOLOG100 UNIT/3 SUBQ; NUTRISOURCE FI1 EACH PO; PEPCID40 MG PO; PRO-STAT LIQUID30 ML ORAL; RISPERDAL0.5 MG ORAL; SENNA8.6 M2 PO; TRAMADOL HCL50 MG ORAL; VALPROIC ACID250 MG PO; VITAMIN B COMP1 EAC2 ORAL; VOLTAREN100 G1 TP; ZOLOFT100 MG ORAL
[2019-08-03] MEDS ORDERED: SENNO8.6 MG ORAL (13:34)
[2019-08-03] MEDS ORDERED: CALCIUM CARBON500 M1 PO (13:34)
[2019-08-03] MEDS ORDERED: FERROUS SULFAT325 M2 ORAL (13:34)
[2019-08-03] MEDS ORDERED: LIORESAL20 MG ORAL (13:34)
[2019-08-03] MEDS ORDERED: OXISTAT30 G1 TP (13:45)
[2019-08-03] MEDS ORDERED: POLYETHYLENE GL17 GM ORAL (13:45)
[2019-08-03] MEDS ORDERED: OMEPRAZOLE40 M1 ORAL (13:45)
--- NOTE | 2019-08-03 13:55 | Emergency Room Report ---
History of Present Illness General Chief Complaint: Chest Pain Source: Patient, Medical Record Present Illness HPI Patient is a 48-year-old female who presented after increased chest discomfort. She reports that increased left-sided chest pain. Onset of symptoms approximate 1 hour prior to arrival at the hospital. Patient had been brought in by EMS. She was sent in from [facility]. Patient had prior history of spina bifida as well as chronic muscle weakness and contractures. She is type II diabetic. She denies any prior cardiac condition. Denies any fever or new lower extremity discomfort. Allergies: Coded Allergies: CODEINE (Unverified Allergy, Unknown, 08/03/19) IODINE (Verified Allergy, Unknown, 01/15/11) LATEX (Verified Allergy, Unknown, 08/06/08) PENICILLINS (Verified Allergy, Unknown, 08/06/08) Uncoded Allergies: LACTOSE INTOLERANT (Allergy, Unknown, 06/10/17) POLLEN (Allergy, Unknown, 06/10/17) COVID-19 Screening Contact w/high risk pt: No Recent Travel to affected area: No Experienced COVID-19 symptoms?: No COVID-19 Testing performed CENTRAL OFFICE EQUIPMENT INSTALLER: No Patient History Past Medical History: see triage record Now: No Reviewed Nursing Documentation: PMH: Agreed; PSxH: Agreed Nursing Documentation-PMH Past Medical History: No History, Except For Hx Cardiac Problems: Yes Hx Hypertension: Yes Hx Diabetes: Yes Hx Gastrointestinal Problems: Yes - Gastritis Hx Cerebrovascular Accident: Yes - left hemiparesis Hx Seizures: Yes Hx Cerebral Palsy: Yes Hx Brain Shunt: Yes - 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 INSTALLER SHUNT & THOMAS RODS Review of Systems All Other Systems: limited - Poor historian Physical Exam Vital Signs Date Time Temp Pulse Resp B/P (MAP) Pulse Ox O2 Delivery O2 Flow Rate FiO2 08/03/19 13:12 98 18 110/66 (81) 97 Nasal Cannula 2.0 General Appearance: alert, Chronically Ill Eyes: bilateral eye PERRL ENT: hearing grossly normal Neck: limited range of motion Respiratory: lungs clear, normal breath sounds Cardiovascular #1: normal peripheral pulses, no gallop, edema Gastrointestinal: normal inspection, soft Musculoskeletal: other - Bilateral lower extremity atrial atrophy and motor weakness. Upper extremities somewhat atrophic as well. Neurologic: alert Psychiatric: normal inspection Skin: no rash Medical Decision Making Diagnostic Impression: Primary Impression: Chest pain Additional Impressions: Pleural effusion, right INSTRUMENT INSTALLER (ventriculoperitoneal) shunt status Suspected 2019 novel coronavirus infection Urinary tract infection ER Course Patient presented for chest pain. Differential diagnosis included but was not limited to acute coronary syndrome, pulmonary embolism, pneumonia, aortic dissection, shingles, pneumothorax, aortic dissection, esophageal rupture, pericarditis. EKG showed EKG interpreted by me showed normal sinus rhythm with a rate of [address] changes. Patient had some diffuse nonspecific T wave changes. This x-ray 1 view read by radiology showed moderate right-sided pleural effusion which appears to be layering posteriorly as well as haziness to the right midlung lower zone possible pulmonary edema. Testing did show some lymphopenia. Normal white blood count. Patient was placed on oxygen via nasal cannula due to Low pulse ox.Patient would be admitted for further evaluation of pleural effusion. CT imaging was not ordered due to patient's contrast allergy.Patient is a with known COVID infection. Patient had recent testing performed however results are not currently available. Dr. Wilkerson was contaced due to covering physician for Dr. Esther Zafar is the patient's primary care physician. Patient will be admitted to Dr. Contreras per Dr. Lindsay request. Labs Test 08/03/19 14:15 08/03/19 14:20 White Blood Count 9.2 K/UL (4.8-10.8) Red Blood Count 5.29 M/UL (4.20-5.40) Hemoglobin 12.6 G/DL (12.0-16.0) Hematocrit 40.7 % (37.0-47.0) Mean Corpuscular Volume 77 FL (80-99) Mean Corpuscular Hemoglobin 23.9 PG (27.0-31.0) Mean Corpuscular Hemoglobin Concent 31.0 G/DL (32.0-36.0) Red Cell Distribution Width 19.2 % (11.6-14.8) Platelet Count 301 K/UL (150-450) Mean Platelet Volume 5.4 FL (6.5-10.1) Neutrophils (%) (Auto) 74.0 % (45.0-75.0) Lymphocytes (%) (Auto) 16.8 % (20.0-45.0) Monocytes (%) (Auto) 8.3 % (1.0-10.0) Eosinophils (%) (Auto) 0.1 % (0.0-3.0) Basophils (%) (Auto) 0.9 % (0.0-2.0) Sodium Level 139 MMOL/L (136-145) Potassium Level 5.2 MMOL/L (3.5-5.1) Chloride Level 108 MMOL/L (98-107) Carbon Dioxide Level 19 MMOL/L (21-32) Anion Gap 12 mmol/L (5-15) Blood Urea Nitrogen 19 mg/dL (7-18) Creatinine 0.6 MG/DL (0.55-1.30) Estimat Glomerular Filtration Rate > 60 mL/min (>60) Glucose Level 100 MG/DL (74-106) Calcium Level 8.9 MG/DL (8.5-10.1) Total Bilirubin 0.1 MG/DL (0.2-1.0) Aspartate Amino Transf (AST/SGOT) 11 U/L (15-37) Alanine Aminotransferase (ALT/SGPT) 14 U/L (12-78) Alkaline Phosphatase 96 U/L (46-116) Troponin I 0.004 ng/mL (0.000-0.056) C-Reactive Protein, Quantitative 1.9 mg/dL (0.00-0.90) Pro-B-Type Natriuretic Peptide 54 pg/mL (0-125) Total Protein 7.5 G/DL (6.4-8.2) Albumin 3.0 G/DL (3.4-5.0) Globulin 4.5 g/dL Albumin/Globulin Ratio 0.7 (1.0-2.7) Lactic Acid Level 1.70 mmol/L (0.4-2.0) EKG Diagnostic Results Rate: normal Rhythm: NSR ST Segments: no acute changes Last Vital Signs Date Time Temp Pulse Resp B/P (MAP) Pulse Ox O2 Delivery O2 Flow Rate FiO2 08/03/19 13:12 98 18 110/66 (81) 97 Nasal Cannula 2.0 Status: unchanged Disposition: ADMITTED INPATIENT Condition: Stable Referrals: NON PHYSICIAN (PCP) Davion Magdaleno MD August 03, 2019 13:55
--- NOTE | 2019-08-03 14:01 | NUR ---
ED Nurse Note: Pt was brought in by ambulance from [facility] d/t LT sided chest pain scale of 7/10, non-radiating. Pt's a FULL CODE, AOx2, calm and cooperative. 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 1 nitro spray given BEER STILL RUNNER COMPOUNDER. Placed on bed; hooked to cardiac rehab nurse. Safety measures in placed, will continue to monitor pt.
[2019-08-03 14:36] LABS: BASOPHILS % (AUTO) 0.9 % (0.0-2.0); EOSINOPHILS % (AUTO) 0.1 % (0.0-3.0); HEMATOCRIT 40.7 % (37.0-47.0); HEMOGLOBIN 12.6 G/DL (12.0-16.0); LYMPHOCYTES % (AUTO) 16.8 % (20.0-45.0); MEAN CORPUSCULAR VOLUME 77 FL (80-99); MONOCYTES % (AUTO) 8.3 % (1.0-10.0); PLATELET COUNT 301 K/UL (150-450); RED BLOOD COUNT 5.29 M/UL (4.20-5.40); RED CELL DISTRIBUTION WIDTH 19.2 % (11.6-14.8); WHITE BLOOD COUNT 9.2 K/UL (4.8-10.8)
--- NOTE | 2019-08-03 14:40 | NUR ---
ED Nurse Note: blood cultures, lactic and covid swab collected, sent to labs.
[2019-08-03 14:47] LABS: ANION GAP 12 mmol/L (5-15); BLOOD UREA NITROGEN 19 mg/dL (7-18); CALCIUM 8.9 MG/DL (8.5-10.1); CARBON DIOXIDE 19 MMOL/L (21-32); CHLORIDE 108 MMOL/L (98-107); CREATININE 0.6 MG/DL (0.55-1.30); POTASSIUM 5.2 MMOL/L (3.5-5.1); SODIUM 139 MMOL/L (136-145)
[2019-08-03 14:48] VITALS: BP 110/66
[2019-08-03 14:59] LABS: ALANINE AMINOTRANSFERASE 14 U/L (12-78); ALBUMIN/GLOBULIN RATIO 0.7 (1.0-2.7); ALKALINE PHOSPHATASE 96 U/L (46-116); ASPARTATE AMINO TRANSFERASE 11 U/L (15-37); BILIRUBIN,TOTAL 0.1 MG/DL (0.2-1.0)
--- NOTE | 2019-08-03 15:06 | NUR ---
ED Nurse Note: pt's cousin's contact information: [phone]
--- NOTE | 2019-08-03 15:10 | Diagnostic Imaging Report ---
EXAM: XR Chest, 1 View CLINICAL HISTORY: Chest pain. TECHNIQUE: Frontal view of the chest. COMPARISON: None. FINDINGS: Lungs: See below. Pleural space: There is a are moderate right pleural effusion which appears to be layering posteriorly. Minimal haziness is noted in the right mid lower lung zones diffusely, possibly related to layering pleural effusion versus pulmonary edema. No pneumothorax. Heart: Cardiomediastinal silhouette unremarkable. Mediastinum: See above. Bones/joints: Rashid rods are noted in place extending from the mid thoracic region to the lumbar spine. There is osteopenia. Other findings: There is hypoaeration. IMPRESSION: 1. Hypoaeration. 2. Moderate right pleural effusion which appears to be layering posteriorly. 3. Possible pulmonary edema right mid lower lung zones also should be considered. 4. Osteopenia.
--- NOTE | 2019-08-03 16:30 | NUR ---
ED Nurse Note: urine collected; sent to labs.
--- NOTE | 2019-08-03 16:41 | NUR ---
ED Nurse Note: MRSA/CRE swabs collected, sent to labs. Initial skin assessment performed, noted pressure sore on sacral/coccyx area; picture taken and will upload.
[2019-08-03 16:59] VITALS: BP 111/57
[2019-08-03 17:02] LABS: APPEARANCE,URINE TURBID; BILIRUBIN, URINE NEGATIVE (NEGATIVE); GLUCOSE, URINE (UA) NEGATIVE (NEGATIVE); KETONES,URINE 1+ (NEGATIVE); LEUKOCYTE ESTERASE ,URINE 3+ (NEGATIVE); NITRITE,URINE NEGATIVE (NEGATIVE); PH,URINE 8 (4.5-8.0); PROTEIN,URINE 2+ (NEGATIVE); UROBILINOGEN,URINE 1 MG/DL (0.0-1.0)
[2019-08-03 17:04] LABS: COLOR,URINE YELLOW
[2019-08-03] MEDS ORDERED: Miralax 17gm pkt ORAL PRN (17:15)
[2019-08-03] MEDS ORDERED: Nitroglycerin Subl 0.4mg tab SL PRN (17:15)
[2019-08-03] MEDS ORDERED: traMADol 50mg tab ORAL PRN (17:15)
[2019-08-03] MEDS ORDERED: Cyclobenzaprine 10mg Tab ORAL PRN (17:15)
[2019-08-03] MEDS ORDERED: HYDROmorphone 4mg tab ORAL PRN (17:15)
[2019-08-03] MEDS ORDERED: Bactrim-DS 1 tab ORAL SCH (18:00)
[2019-08-03] MEDS ORDERED: Diclofenac 1% Gel 100gm TOPIC PRN (18:00)
--- NOTE | 2019-08-03 18:26 | NUR ---
ED Nurse Note: called pharmacy to verify all admission meds scheduled as of now.
[2019-08-03] MEDS: Aspirin Baby 81mg ORAL SCH (18:48)
[2019-08-03] MEDS: metFORMIN 500mg tab ORAL SCH (18:48)
[2019-08-03] MEDS: Ascorbic Acid 500mg tab ORAL SCH (18:49)
[2019-08-03] MEDS: Sennosides 8.6mg tab ORAL SCH (18:49)
[2019-08-03] MEDS: D5 1/2NS 1,000 ML IV SCH ×2 (19:10→22:05)
--- NOTE | 2019-08-03 19:20 | NUR ---
ED Nurse Note: Patient is currently eating without assistance. Will continue to monitor for report to floor.
[2019-08-03] MEDS ORDERED: VANCOMYCIN IVPB ONE (20:00)
[2019-08-03] MEDS ORDERED: [UNRECOGNIZED DRUG - OTHER] IVPB ONE (20:00)
--- NOTE | 2019-08-03 20:05 | NUR ---
ED Nurse Note: Called to render report at this time, nurse is unavailable. spoke to Isidra PHAN, documented.
--- NOTE | 2019-08-03 20:23 | NUR ---
ED Nurse Note: Called for report, unsuccessful.
--- NOTE | 2019-08-03 20:35 | NUR ---
ED Nurse Note: Called for report, unsuccessful.
--- NOTE | 2019-08-03 21:15 | NUR ---
ED Nurse Note: Called and Shruti Rn was able to receive report.
--- NOTE | 2019-08-03 21:30 | NUR ---
ED Nurse Note: Patient transported to floor without incident.
[2019-08-03 21:33] VITALS: BP 130/65
--- NOTE | 2019-08-03 21:33 | NUR ---
NURSE NOTES: Received report from GIA Villalobos, pt. brought up from ER- pt. is PUI- isolation applied, pt. appears to be A/O x's3-4 -able to make needs known, no signs or symptoms of acute cardiac or respiratory distress noted, bed alarm on, side rails up x's 3 and safety brakes engaged, side rails padded for seizure precautions- no seizure activity noted, shelter monitor applied- pt. is SR on monitor, pt. appears to be sating well on 3L NC- no distress noted- sating at 98%, VS taken, full body assessment done- abdominal area appears to be distended, pt. has weakness to both arms- but more so to left side as pt. had CVA, patient has atrophy to bilateral lower legs and bilateral foot drop, Pt. has urostomy to left side abdomen area- appears to be patent and draining, Pt. has what appears to be a sacral pressure ulcer- to buttocks - going down to upper thighs, LFA 20G IV intact and patent, safety measures continued, will continue to monitor pt. and with plan of care.
[2019-08-03] MEDS: Heparin 5000 units/ml inj SUBQ SCH (22:10)
[2019-08-03] MEDS ORDERED: Vancomycin 1.25gm/NS Premix IVPB ONE (23:00)
[2019-08-04] VITALS (7 sets, daily range): BP systolic 98–135; BP diastolic 46–68
--- NOTE | 2019-08-04 01:45 | Consultation ---
DATE OF CONSULTATION: 08/03/2019 CONSULTING PHYSICIAN: Odin Wilkins MD REQUESTING PHYSICIAN: Eliseo Contreras MD REASON FOR CONSULTATION: Chest pain. HISTORY OF PRESENT ILLNESS: This is an unfortunate 48-year-old female with multiple medical problems including spina bifida after vertebral peritoneal shunt and Rashid rods as well as a prior stroke. She presented to the emergency room from her intermediate facility complaining of increasing chest discomfort on the left side. The symptoms were relatively acute and were not severe or associated with any shortness of breath. The patient does have a prior history of left-sided pleural effusion. She was seen in the emergency room and hospitalization initiated. 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 MEDICATIONS: Prior to admission, reviewed and reconciled. ALLERGIES: Include lactose intolerance, iodine, codeine latex, and penicillin. SOCIAL HISTORY: Negative for smoking, alcohol, or substance abuse. She resides in a intermediate facility. FAMILY HISTORY: Noncontributory. REVIEW OF SYSTEMS: Cannot be reliably obtained from the patient. However, pertinent data from review of old hospital charts is obtained and outlined above. 20 minutes time is spent. PHYSICAL EXAMINATION: VITAL SIGNS: Blood pressure 110/66, heart rate 98, respirations 18, afebrile, oxygen saturation 97% on 2 L. GENERAL: Ill-appearing older than stated age. HEENT: Conjunctivae pink. Oropharynx clear. NECK: Supple. No bruits. No jugular venous distention. LUNGS: Clear. No chest wall tenderness. CARDIAC: Regular rhythm and rate. Normal S1, S2 with no murmur. ABDOMEN: Soft. EXTREMITIES: Reveal no edema. There is distal muscle atrophy in the upper and lower extremities. SKIN: As outlined. LABORATORY AND DIAGNOSTIC DATA: EKG reveals sinus rhythm 98 beats per minute, nonspecific T-wave change. Chest x-ray with right-sided pleural effusion. Right mid lung opacity. COVID-19 positive prior to admission. White count 9.2, hemoglobin 12.6. BUN 19 creatinine 0.6, potassium 5.2. Troponin is negative. CRP 1.9 and pro-natriuretic peptide is 54. Lactic acid 1.7. IMPRESSION: 1. Possible COVID-19 infection. 2. Right-sided pleural effusion with parapneumonic infiltrate. 3. Suspected chest pain may be pleuritic, low likelihood for acute coronary insufficiency. PLAN: 1. Empiric antimicrobials. 2. Respiratory hygiene. 3. Cautious hydration. 4. Follow up troponin level. 5. Cardiac monitoring. 6. Insulin coverage by sliding scale. 7. Titrate antihypertensive regimen based on clinical parameters. 8. Further recommendations to follow. Odin Wilkins M.D. DR: MONICA JOB#: [id number] CC:
[2019-08-04] MEDS ORDERED: Vancomycin 750mg/NS 275ml IVPB SCH ×2 (04:00)
[2019-08-04 05:56] LABS: BASOPHILS % (AUTO) 1.3 % (0.0-2.0); EOSINOPHILS % (AUTO) 0.9 % (0.0-3.0); HEMATOCRIT 37.8 % (37.0-47.0); HEMOGLOBIN 11.8 G/DL (12.0-16.0); MEAN CORPUSCULAR VOLUME 78 FL (80-99); MONOCYTES % (AUTO) 13.6 % (1.0-10.0); NEUTROPHILS % (AUTO) 50.3 % (45.0-75.0); PLATELET COUNT 258 K/UL (150-450); RED BLOOD COUNT 4.88 M/UL (4.20-5.40); RED CELL DISTRIBUTION WIDTH 19.3 % (11.6-14.8); WHITE BLOOD COUNT 8.1 K/UL (4.8-10.8)
[2019-08-04] MEDS: Vancomycin 750mg/NS 275ml IVPB SCH ×6 (06:09→22:01)
[2019-08-04 06:43] LABS: ALANINE AMINOTRANSFERASE 13 U/L (12-78); ALBUMIN 2.6 G/DL (3.4-5.0); ALBUMIN/GLOBULIN RATIO 0.6 (1.0-2.7); ALKALINE PHOSPHATASE 89 U/L (46-116); ANION GAP 11 mmol/L (5-15); ASPARTATE AMINO TRANSFERASE 15 U/L (15-37); BILIRUBIN,TOTAL < 0.1 MG/DL (0.2-1.0); BLOOD UREA NITROGEN 15 mg/dL (7-18); CALCIUM 8.5 MG/DL (8.5-10.1); CARBON DIOXIDE 20 MMOL/L (21-32); CHLORIDE 110 MMOL/L (98-107); CHOLESTEROL 110 MG/DL (< 200); CREATINE KINASE 60 U/L (26-308); CREATININE 0.6 MG/DL (0.55-1.30); HDL CHOLESTEROL 28 MG/DL (40-60); POTASSIUM 4.2 MMOL/L (3.5-5.1); SODIUM 141 MMOL/L (136-145); TRIGLYCERIDES 131 MG/DL (30-150)
--- NOTE | 2019-08-04 07:06 | NUR ---
HAND-OFF: Report given to GIA Wallace- pt. remains stable and no sings of distress noted-a beltran to f/u on any abnormal am labs.
--- NOTE | 2019-08-04 07:10 | NUR ---
NURSE NOTES: Received report from GIA Tripathi. The patient is resting on the bed without acute distress or shortness of breath but saying that she feels cold since the room temperature is cold and called engineering to fix the issue. The patient is AOx3 able to make needs known via verbal communication. The patient is on 2L NC and oxygen saturation within normal range. The patient has urostomy bag that is intact and draining well with the gravity. L FA 22G that is intact and patent and running IVF per order. Sacral wound noted and dressing intact, and the patient is on P200 airmatress. The patient has history of Spina Bifida and has left side hemiparasis. The patient's bed in the lowest position, call light in reach, and fall, aspiration, and seizure precaution reinforced. Will follow up the lab. Will continue plan of care.
[2019-08-04] MEDS: Vitamin B Complex Tab ORAL SCH (09:00)
--- NOTE | 2019-08-04 09:00 | NUR ---
NURSE NOTES: Called pharmacy since Vitamin B complex is not on Pixes or patient bin. Per Zack, the pharmacy clinical specialist, the medication is out of stock, and there is no way to stock it again by today since today is . Notified Dr. Contreras regarding it. No new order at this time. Will continue plan of care.
[2019-08-04] MEDS: Aspirin Baby 81mg ORAL SCH (09:19)
[2019-08-04] MEDS: Losartan 25mg tab ORAL SCH (09:19)
[2019-08-04] MEDS: metFORMIN 500mg tab ORAL SCH (09:19)
[2019-08-04] MEDS: Multivitamin w/Minerals tab ORAL SCH (09:20)
[2019-08-04] MEDS: Sennosides 8.6mg tab ORAL SCH ×2 (09:20→17:45)
[2019-08-04] MEDS: Ascorbic Acid 500mg tab ORAL SCH ×2 (09:21→17:45)
[2019-08-04] MEDS: Sertraline 100mg tab ORAL SCH (09:21)
[2019-08-04] MEDS: Heparin 5000 units/ml inj SUBQ SCH ×2 (09:22→20:09)
--- NOTE | 2019-08-04 09:30 | NUR ---
NURSE NOTES: Morning medication administered per order. Vital signs noted. No chest pain at this time. The patient is stable at this time. Will continue plan of care.
--- NOTE | 2019-08-04 11:00 | NUR ---
NURSE NOTES: The patient is resting comfortably without acute distress or shortness of breath. Will closely monitor the patient. Will continue plan of care.
[2019-08-04] MEDS ORDERED: Omnipaque-300 100ml vial INJ PRN (12:00)
[2019-08-04] MEDS: NovoLOG Insulin Flexpen SUBQ SCH ×3 (12:04→20:08)
--- NOTE | 2019-08-04 12:30 | NUR ---
NURSE NOTES: Dr. Contreras at the bedside assessed the patient. Dr. Contreras ordered CT chest w/ and w/o contrast and confirmed that the patient's Iodine allergic reaction is only skin itching. Per Dr. Contreras, CT chest w/ and w/o to be completed on 08/05/2019 after getting Solumedrol for skin itching. Will endorse to the supervisor dry cell assembly nurse. Will continue plan of care.
--- NOTE | 2019-08-04 14:00 | NUR ---
NURSE NOTES: Ate 100% of lunch with assist. The patient is resting on the bed will closely monitor the patient. Will continue plan of care.
--- NOTE | 2019-08-04 16:00 | NUR ---
NURSE NOTES: The patient is stable at this time. Tolerating well 2L NC and oxygen saturation within normal range. Will closely monitor the patient. Will continue plan of care.
--- NOTE | 2019-08-04 16:00 | History and Physical Report ---
DATE OF ADMISSION: 08/03/2019 CHIEF COMPLAINT AND REASON FOR HOSPITALIZATION: Patient is admitted with left-sided chest pain. 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 She is admitted with left-sided chest pain. There is a concern for COVID-19 as she is in a facility that has had several cases. ALLERGIES: None known. MEDICATIONS: Include Tylenol, Artificial Tears, aspirin, atorvastatin, baclofen, calcium carbonate, collagen matrix, cranberry, cyclobenzaprine, ferrous sulfate, Flonase, senna, Kellen-Lanta, hydromorphone, Imitrex, DuoNeb, lactobacillus, lactulose, Lantus insulin, losartan, metformin, metoclopramide, metoprolol sliding scale NovoLog, multivitamins, fiber, omeprazole, oxiconazole cream, polyethylene glycol, ProStat, Risperdal, sertraline, tramadol, valproic acid, vitamin B complex, vitamin C, and zolpidem. SYSTEM REVIEW: HEAD, EYES, EARS, NOSE, AND THROAT: Vision and hearing is good. ENDOCRINE: History of diabetes. No thyroid disease. PULMONARY: History of smoking in the past. Mild chronic cough. Some COPD. CARDIAC: No definite angina or MA. GASTROINTESTINAL: History of gastroesophageal reflux and gastritis. GENITOURINARY: History of recurrent UTIs. NEUROLOGIC: History of spina bifida, CVA, left-sided weakness, Rashid caitlyn. PHYSICAL EXAMINATION: GENERAL: Patient is alert in bed. VITAL SIGNS: Temperature 97, pulse 90, respirations 18, blood pressure 109/61. HEAD, EYES, EARS, NOSE, AND THROAT: Sclerae are nonicteric. Ocular motions intact in all directions. Oral mucosa moist. NECK: No adenopathy. LUNGS: Diminished breath sounds in the right base. HEART: Regular rhythm. No murmur. ABDOMEN: Soft without organomegaly. EXTREMITIES: Show muscle atrophy. NEUROLOGIC: There is a residual left-sided weakness. She is alert and oriented. PERTINENT LABORATORIES: Initial troponin 0.004 and C-reactive protein was high at 1.9. Electrolytes normal. Albumin 2.6. Total cholesterol 110. Initial potassium is 5.2 and the repeat was 4.2. The white count 9.2, hemoglobin is 12.6. Urinalysis shows 40 to 60 white cells and moderate epithelial. The chest x-ray shows a right pleural effusion, layering, concerned for possible pulmonary edema and osteopenia. IMPRESSION: 1. Chest pain, atypical, rule out acute coronary syndrome, rule out musculoskeletal, rule out due to pulmonary infection or acute pulmonary problem, rule out COVID-19. 2. Right pleural effusion. 3. Concern for congestive heart failure versus pleural effusion on another basis, possibly parapneumonic effusion, possible healthcare-acquired pneumonia. 4. UTI. 5. History of spina bifida. 6. History of CVA, left-sided weakness. PLAN: Patient will be put on antibiotics for healthcare-associated pneumonia. We will continue on anti-ischemic regimen and rule out MA. Get appropriate consultation. Follow up imaging. Eliseo Contreras M.D. DR: RADHA JOB#: [id number] CC:
--- NOTE | 2019-08-04 18:00 | NUR ---
NURSE NOTES: BM noted. Another bed bath given. The patient is stable at this time. Will continue plan of care.
--- NOTE | 2019-08-04 19:21 | NUR ---
NURSE NOTES: Received report from GIA Wallace, pt. is PUI- isolation applied, pt. appears to be A/O x's3-4 -able to make needs known, no signs or symptoms of acute cardiac or respiratory distress noted, bed alarm on, side rails up x's 3 and safety brakes engaged, side rails padded for seizure precautions- no seizure activity noted, pt. is SR on monitor, pt. appears to be sating well on 3L NC- no distress noted- sating at 99%, Pt. has urostomy to left side abdomen area- appears to be patent and draining, pt. appears to be clean and dry- and appears to be comfortable, LFA 20G IV intact and patent, safety measures continued, per endorsement to give give pt. Solu-Medrol before CT scan as pt. has itching to iodine- per DR. Contreras, continue to monitor pt. and with plan of care.
--- NOTE | 2019-08-04 19:30 | NUR ---
HAND-OFF: Report given to GIA Tripathi. The patient is stable at this time. Endorsed plan of care.
[2019-08-04] MEDS ORDERED: Tubing IV Secondary IV ONE (20:49)
[2019-08-04] MEDS ORDERED: D5 1/2NS 1000ml IV ONE (20:49)
[2019-08-05] VITALS: BP 106/56
--- NOTE | 2019-08-05 01:15 | Progress Note ---
DATE: 08/04/2019 CARDIOLOGY PROGRESS NOTE SUBJECTIVE: The patient's condition is largely unchanged. She still has some chest pain on the left side and some shortness of breath. The pain is not associated with any position or activity. Monitored rhythm remains sinus and sinus tachycardia. PHYSICAL EXAMINATION: VITAL SIGNS: Blood pressure 114/60, heart rate 108, respirations 18, afebrile, oxygen saturation 99% on 2 liters. LUNGS: Bilateral breath sounds. Diminished at the right with few rhonchi. Chest wall slightly tender to palpation diffusely. CARDIAC: Regular rhythm rate. Normal S1, S2 with no murmur. ABDOMEN: Soft, nontender. EXTREMITIES: With trace edema and muscle atrophy. LABORATORY DATA: Troponin negative x2. Sodium 141, potassium 4.2, bicarb 20, BUN 15, creatinine 0.6, glucose 107. Liver function normal. Total cholesterol 110, HDL 28, LDL 72. TSH 0.7. White count is 8.1, hemoglobin 11.8. IMPRESSION: 1. Atypical chest pain, likely musculoskeletal or pleuritic. No signs of acute coronary insufficiency. 2. Pleural effusion. Rule out associated acute pulmonary infection. 3. Chronic diastolic congestive heart failure. 4. CVA with left hemiparesis. 5. Spina bifida with Rashid rods. 6. Possible urinary tract infection. 7. Low range cholesterol, on statin therapy. PLAN: 1. Discontinue statin at this time. 2. Continue empiric antimicrobials for pulmonary infection. 3. Maintain anti-platelet therapy. 4. Cautious use of beta-carrillo. 5. Low-dose losartan as tolerated by blood pressure. Odin Wilkins M.D. DR: EDWAR JOB#: [id number] CC:
[2019-08-05 04:00] VITALS: BP 109/58
[2019-08-05 05:30] LABS: BASOPHILS % (AUTO) 1.1 % (0.0-2.0); EOSINOPHILS % (AUTO) 0.7 % (0.0-3.0); HEMOGLOBIN 12.5 G/DL (12.0-16.0); LYMPHOCYTES % (AUTO) 29.1 % (20.0-45.0); MEAN CORPUSCULAR VOLUME 76 FL (80-99); MONOCYTES % (AUTO) 12.3 % (1.0-10.0); NEUTROPHILS % (AUTO) 56.8 % (45.0-75.0); PLATELET COUNT 228 K/UL (150-450); RED CELL DISTRIBUTION WIDTH 19.2 % (11.6-14.8); WHITE BLOOD COUNT 7.1 K/UL (4.8-10.8)
[2019-08-05 05:43] LABS: ANION GAP 10 mmol/L (5-15); BLOOD UREA NITROGEN 12 mg/dL (7-18); CALCIUM 8.8 MG/DL (8.5-10.1); CARBON DIOXIDE 22 MMOL/L (21-32); CHLORIDE 107 MMOL/L (98-107); CREATININE 0.4 MG/DL (0.55-1.30); POTASSIUM 4.2 MMOL/L (3.5-5.1); SODIUM 139 MMOL/L (136-145)
[2019-08-05] MEDS: NovoLOG Insulin Flexpen SUBQ SCH ×4 (05:44→21:02)
[2019-08-05] MEDS ORDERED: Solu-MEDROL 125mg Inj IVP SCH (07:00)
--- NOTE | 2019-08-05 07:15 | NUR ---
NURSE NOTES: Received report from Dakota Casas RN. Patient alert and oriented x 4, able to make needs known and follow commands. Receiving O2 via nasal cannula @ 2L/min, respirations even and unlabored. Urostomy patent and draining well, no leaking noted. Left forearm 20g saline lock asymptomatic. Bed locked in lowest position with padded side rails up x 3. All needs attended to. Call light within reach. Will continue to monitor.
--- NOTE | 2019-08-05 07:17 | NUR ---
HAND-OFF: Report given to GIA Diaz, pt. remains stable and no signs of distress noted. Addendum: 08/05/19 at 0718 by MIGUEL ANGEL DONOHUE RN RN nurse aware to administer Solu-Medrol prior to CT.
--- NOTE | 2019-08-05 07:56 | Pulmonology Progress Note ---
Subjective Allergies: Coded Allergies: CODEINE (Unverified Allergy, Unknown, 08/03/19) IODINE (Verified Allergy, Unknown, 01/15/11) LATEX (Verified Allergy, Unknown, 08/06/08) PENICILLINS (Verified Allergy, Unknown, 08/06/08) Uncoded Allergies: LACTOSE INTOLERANT (Allergy, Unknown, 06/10/17) POLLEN (Allergy, Unknown, 06/10/17) Subjective care noted and reviewed no distress CT chest pending Objective Last 24 Hour Vital Signs Date Time Temp Pulse Resp B/P (MAP) Pulse Ox O2 Delivery O2 Flow Rate FiO2 08/05/19 04:00 97.9 89 20 109/58 (75) 99 08/05/19 04:00 Nasal Cannula 2.0 08/05/19 03:45 89 08/05/19 00:00 Nasal Cannula 2.0 08/05/19 00:00 97.9 87 20 106/56 (73) 99 08/04/19 23:35 93 08/04/19 20:08 104 116/74 08/04/19 20:00 Nasal Cannula 2.0 08/04/19 20:00 97.7 100 20 116/61 (79) 99 08/04/19 19:46 114 08/04/19 18:00 Nasal Cannula 2.0 08/04/19 16:00 Nasal Cannula 2.0 08/04/19 16:00 97.7 108 18 114/60 (78) 99 08/04/19 16:00 104 08/04/19 12:00 97.2 88 18 101/54 (70) 100 08/04/19 12:00 Nasal Cannula 2.0 08/04/19 12:00 90 08/04/19 09:20 90 109/61 08/04/19 09:19 109/61 08/04/19 08:00 99 08/04/19 08:00 Nasal Cannula 2.0 Intake and Output 08/04/19 08/05/19 19:00 07:00 Intake Total 416.666 ml Output Total 2000 ml 700 ml Balance -2000 ml -283.334 ml Intake IV Total 416.666 ml Output Urine Total 2000 ml 700 ml # Bowel Movements 2 3 Objective WDWN NAD reduced breath sounds right without rhonchi or wheeze [id number] without MRG NABS nontender no HSM no CCE focal weakness Microbiology Date/Time Source Procedure Growth Status 08/03/19 14:20 Blood Blood Culture - Preliminary NO GROWTH AFTER 24 HOURS Resulted 08/03/19 13:50 Blood Blood Culture - Preliminary NO GROWTH AFTER 24 HOURS Resulted 08/03/19 16:30 Urine,Clean Catch Urine Culture - Preliminary Resulted Laboratory Tests 08/04/19 22:15: Vancomycin Level Trough 21.5H 08/05/19 04:20: White Blood Count 7.1, Red Blood Count 5.10, Hemoglobin 12.5, Hematocrit 39.0, Mean Corpuscular Volume 76L, Mean Corpuscular Hemoglobin 24.6L, Mean Corpuscular Hemoglobin Concent 32.1, Red Cell Distribution Width 19.2H, Platelet Count 228, Mean Platelet Volume 4.8L, Neutrophils (%) (Auto) 56.8, Lymphocytes (%) (Auto) 29.1, Monocytes (%) (Auto) 12.3H, Eosinophils (%) (Auto) 0.7, Basophils (%) (Auto) 1.1, Sodium Level 139, Potassium Level 4.2, Chloride Level 107, Carbon Dioxide Level 22, Anion Gap 10, Blood Urea Nitrogen 12, Creatinine 0.4L, Estimat Glomerular Filtration Rate > 60, Glucose Level 81, Calcium Level 8.8, Troponin I 0.000, Pro-B-Type Natriuretic Peptide 159H Current Medications Medications (Trade) Dose Ordered Sig/Jeniffer Route PRN Reason Start Time Stop Time Status Last Admin Dose Admin Acetaminophen (Tylenol) 650 mg Q4H PRN ORAL Mild Pain (Pain Scale 1-3) 08/03/19 17:15 09/02/19 17:14 Acetaminophen (Tylenol) 650 mg Q4H PRN ORAL Temp >100.5 08/03/19 17:15 09/02/19 17:14 Artificial Tears (Akwa-Tears) 1 drop TID BOTH EYES 08/03/19 22:00 09/02/19 21:59 08/04/19 17:48 Ascorbic Acid (Vitamin C) 500 mg TWICE A DAY ORAL 08/03/19 18:00 09/02/19 17:59 08/04/19 17:45 Aspirin (ASA) 81 mg DAILY ORAL 08/03/19 17:15 09/17/19 17:14 08/04/19 09:19 Cefepime HCl 1 gm/ Dextrose 50 ml @ 100 mls/hr Q12H IVPB 08/04/19 06:00 08/11/19 05:59 08/05/19 05:04 Cyclobenzaprine HCl (Flexeril) 10 mg Q6H PRN ORAL Muscle Spasm 08/03/19 17:15 09/02/19 17:14 Dextrose (Dextrose 50%) 25 ml Q30M PRN IV Hypoglycemia 08/04/19 11:30 11/02/19 11:29 Dextrose (Dextrose 50%) 50 ml Q30M PRN IV Hypoglycemia 08/04/19 11:30 11/02/19 11:29 Diclofenac Sodium (Voltaren gel) 1 applic Q6HR PRN TOPIC For Pain 08/03/19 18:00 11/01/19 17:59 08/03/19 18:49 Heparin Sodium (Porcine) (Heparin 5000 units/ml) 5,000 units EVERY 12 HOURS SUBQ 08/03/19 21:00 09/17/19 20:59 08/04/19 20:09 Hydromorphone HCl (Dilaudid) 4 mg Q6H PRN ORAL Severe Pain (Pain Scale 7-10) 08/03/19 17:15 08/10/19 17:14 Insulin Aspart (NovoLOG) BEFORE MEALS AND HS SUBQ 08/04/19 12:30 11/02/19 12:29 Iohexol (OMNIPAQUE-300 100ml) 100 ml ONCE PRN INJ Radiology procedure 08/04/19 12:00 08/06/19 23:59 Losartan Potassium (Cozaar) 25 mg DAILY ORAL 08/04/19 09:00 09/03/19 08:59 08/04/19 09:19 Methylprednisolone Sodium Succinate (Solu-MEDROL) 60 mg ONCE IVP 08/05/19 07:00 08/05/19 08:00 Metoprolol Tartrate (Lopressor) 25 mg EVERY 12 HOURS ORAL 08/03/19 18:30 11/01/19 18:29 08/04/19 20:08 Multivitamins Therapeutic (Therapeutic Multivitamin) 1 ea DAILY ORAL 08/04/19 09:00 09/03/19 08:59 08/04/19 09:20 Nitroglycerin (Ntg) 0.4 mg Q5M PRN SL Prn Chest Pain 08/03/19 17:15 09/02/19 17:14 Ondansetron HCl (Zofran) 4 mg Q6H PRN IVP Nausea & Vomiting 08/03/19 17:15 09/02/19 17:14 Polyethylene Glycol (Miralax) 17 gm DAILYPRN PRN ORAL Constipation 08/03/19 17:15 09/02/19 17:14 Risperidone (RisperDAL) 0.5 mg QHS ORAL 08/03/19 21:00 09/17/19 20:59 08/04/19 20:07 Sennosides (Senokot) 8.6 mg BID ORAL 08/03/19 18:00 09/02/19 17:59 08/04/19 17:45 Sertraline HCl (Zoloft) 100 mg DAILY ORAL 08/04/19 09:00 09/03/19 08:59 08/04/19 09:21 Tramadol HCl (Ultram) 50 mg Q12H PRN ORAL Moderate Pain (Pain Scale 4-6) 08/03/19 17:15 08/10/19 17:14 Valproic Acid (Depakene) 250 mg Q8HR ORAL 08/03/19 22:00 09/02/19 21:59 08/05/19 05:02 Vancomycin HCl (Vanco rx to dose) 1 ea DAILY PRN MISC Per rx protocol 08/03/19 17:15 09/02/19 17:14 Vancomycin HCl 1 gm/Dextrose 275 ml @ 183.708 mls/hr Q12HR IVPB 08/05/19 09:00 08/10/19 08:59 Vitamin B Complex (Vitamin B Complex) 1 tab DAILY ORAL 08/04/19 09:00 11/02/19 08:59 Assessment/Plan Assessment/Plan 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 await CT chest keep negative monitor cultures off load impression, plan, and exam edited and reviewed in detail care discussed with Sebastian Miranda MD August 05, 2019 07:56
[2019-08-05 08:00] VITALS: BP 100/59
--- NOTE | 2019-08-05 08:12 | Consultation ---
Consult Note Consult Note August 04, 2019 48-year-old female with multiple medical problems presented to the emergency room from her snf facility complaining of chest discomfort and shortness of breath. Patient with acute and severe symptoms requiring transfer. Positive history of pleural effusion. 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 MEDICATIONS: reviewed and reconciled. ALLERGIES: reviewed SOCIAL HISTORY: no smoking, alcohol, or substance abuse. She resides in a snf facility. FAMILY HISTORY: Noncontributory. REVIEW OF SYSTEMS: unable PHYSICAL EXAMINATION: GENERAL: WD female; ill appearing HEENT: Conjunctivae pink. Oropharynx clear. NECK: Supple. No bruits. No jugular venous distention. LUNGS: Clear. No rhonchi or wheeze; reduced right base CARDIAC: Regular rhythm and rate. Normal S1, S2 with no murmur. ABDOMEN: Soft. no distention; NABS EXTREMITIES: no CC; muscle atrophy SKIN: reviewed NEURO: bedbound Labs Test 08/03/19 14:15 08/03/19 14:20 08/03/19 16:30 08/04/19 04:55 White Blood Count 9.2 K/UL (4.8-10.8) 8.1 K/UL (4.8-10.8) Red Blood Count 5.29 M/UL (4.20-5.40) 4.88 M/UL (4.20-5.40) Hemoglobin 12.6 G/DL (12.0-16.0) 11.8 G/DL (12.0-16.0) Hematocrit 40.7 % (37.0-47.0) 37.8 % (37.0-47.0) Mean Corpuscular Volume 77 FL (80-99) 78 FL (80-99) Mean Corpuscular Hemoglobin 23.9 PG (27.0-31.0) 24.3 PG (27.0-31.0) Mean Corpuscular Hemoglobin Concent 31.0 G/DL (32.0-36.0) 31.3 G/DL (32.0-36.0) Red Cell Distribution Width 19.2 % (11.6-14.8) 19.3 % (11.6-14.8) Platelet Count 301 K/UL (150-450) 258 K/UL (150-450) Mean Platelet Volume 5.4 FL (6.5-10.1) 5.6 FL (6.5-10.1) Neutrophils (%) (Auto) 74.0 % (45.0-75.0) 50.3 % (45.0-75.0) Lymphocytes (%) (Auto) 16.8 % (20.0-45.0) 34.0 % (20.0-45.0) Monocytes (%) (Auto) 8.3 % (1.0-10.0) 13.6 % (1.0-10.0) Eosinophils (%) (Auto) 0.1 % (0.0-3.0) 0.9 % (0.0-3.0) Basophils (%) (Auto) 0.9 % (0.0-2.0) 1.3 % (0.0-2.0) Sodium Level 139 MMOL/L (136-145) 141 MMOL/L (136-145) Potassium Level 5.2 MMOL/L (3.5-5.1) 4.2 MMOL/L (3.5-5.1) Chloride Level 108 MMOL/L (98-107) 110 MMOL/L (98-107) Carbon Dioxide Level 19 MMOL/L (21-32) 20 MMOL/L (21-32) Anion Gap 12 mmol/L (5-15) 11 mmol/L (5-15) Blood Urea Nitrogen 19 mg/dL (7-18) 15 mg/dL (7-18) Creatinine 0.6 MG/DL (0.55-1.30) 0.6 MG/DL (0.55-1.30) Estimat Glomerular Filtration Rate > 60 mL/min (>60) > 60 mL/min (>60) Glucose Level 100 MG/DL (74-106) 107 MG/DL (74-106) Calcium Level 8.9 MG/DL (8.5-10.1) 8.5 MG/DL (8.5-10.1) Total Bilirubin 0.1 MG/DL (0.2-1.0) < 0.1 MG/DL (0.2-1.0) Aspartate Amino Transf (AST/SGOT) 11 U/L (15-37) 15 U/L (15-37) Alanine Aminotransferase (ALT/SGPT) 14 U/L (12-78) 13 U/L (12-78) Alkaline Phosphatase 96 U/L (46-116) 89 U/L (46-116) Troponin I 0.004 ng/mL (0.000-0.056) 0.004 ng/mL (0.000-0.056) C-Reactive Protein, Quantitative 1.9 mg/dL (0.00-0.90) Pro-B-Type Natriuretic Peptide 54 pg/mL (0-125) Total Protein 7.5 G/DL (6.4-8.2) 6.8 G/DL (6.4-8.2) Albumin 3.0 G/DL (3.4-5.0) 2.6 G/DL (3.4-5.0) Globulin 4.5 g/dL 4.2 g/dL Albumin/Globulin Ratio 0.7 (1.0-2.7) 0.6 (1.0-2.7) Lactic Acid Level 1.70 mmol/L (0.4-2.0) Urine Color Yellow Urine Appearance Turbid Urine pH 8 (4.5-8.0) Urine Specific [place] 1.010 (1.005-1.035) Urine Protein 2+ (NEGATIVE) Urine Glucose (UA) Negative (NEGATIVE) Urine Ketones 1+ (NEGATIVE) Urine Blood 2+ (NEGATIVE) Urine Nitrite Negative (NEGATIVE) Urine Bilirubin Negative (NEGATIVE) Urine Urobilinogen 1 MG/DL (0.0-1.0) Urine Leukocyte Esterase 3+ (NEGATIVE) Urine RBC 2-4 /HPF (0 - 2) Urine WBC 40-60 /HPF (0 - 2) Urine Squamous Epithelial Cells Moderate /LPF (NONE/OCC) Urine Calcium Oxalate Crystals Few /LPF (NONE) Urine Bacteria Many /HPF (NONE) Urine HCG, Qualitative Negative (NEGATIVE) Total Creatine Kinase 60 U/L (26-308) Triglycerides Level 131 MG/DL (30-150) Cholesterol Level 110 MG/DL (< 200) LDL Cholesterol 72 mg/dL (<100) HDL Cholesterol 28 MG/DL (40-60) Cholesterol/HDL Ratio 3.9 (3.3-4.4) Thyroid Stimulating Hormone (TSH) 0.699 uiU/mL (0.358-3.740) Test 08/04/19 22:15 08/05/19 04:20 Vancomycin Level Trough 21.5 ug/mL (5.0-12.0) White Blood Count 7.1 K/UL (4.8-10.8) Red Blood Count 5.10 M/UL (4.20-5.40) Hemoglobin 12.5 G/DL (12.0-16.0) Hematocrit 39.0 % (37.0-47.0) Mean Corpuscular Volume 76 FL (80-99) Mean Corpuscular Hemoglobin 24.6 PG (27.0-31.0) Mean Corpuscular Hemoglobin Concent 32.1 G/DL (32.0-36.0) Red Cell Distribution Width 19.2 % (11.6-14.8) Platelet Count 228 K/UL (150-450) Mean Platelet Volume 4.8 FL (6.5-10.1) Neutrophils (%) (Auto) 56.8 % (45.0-75.0) Lymphocytes (%) (Auto) 29.1 % (20.0-45.0) Monocytes (%) (Auto) 12.3 % (1.0-10.0) Eosinophils (%) (Auto) 0.7 % (0.0-3.0) Basophils (%) (Auto) 1.1 % (0.0-2.0) Sodium Level 139 MMOL/L (136-145) Potassium Level 4.2 MMOL/L (3.5-5.1) Chloride Level 107 MMOL/L (98-107) Carbon Dioxide Level 22 MMOL/L (21-32) Anion Gap 10 mmol/L (5-15) Blood Urea Nitrogen 12 mg/dL (7-18) Creatinine 0.4 MG/DL (0.55-1.30) Estimat Glomerular Filtration Rate > 60 mL/min (>60) Glucose Level 81 MG/DL (74-106) Calcium Level 8.8 MG/DL (8.5-10.1) Troponin I 0.000 ng/mL (0.000-0.056) Pro-B-Type Natriuretic Peptide 159 pg/mL (0-125) Assessment/Plan 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 if needed await CT chest in am keep negative monitor cultures off load reviewed care in detail impression, plan, and exam edited and reviewed in detail care discussed with Sebastian Miranda MD August 05, 2019 08:12
[2019-08-05] MEDS: Ascorbic Acid 500mg tab ORAL SCH ×2 (08:43→18:01)
[2019-08-05] MEDS: Multivitamin w/Minerals tab ORAL SCH (08:43)
[2019-08-05] MEDS: Sertraline 100mg tab ORAL SCH (08:43)
[2019-08-05] MEDS: Sennosides 8.6mg tab ORAL SCH ×2 (08:43→18:01)
[2019-08-05] MEDS: Aspirin Baby 81mg ORAL SCH (08:43)
[2019-08-05] MEDS: Vancomycin 1gm/D5W 275ml IVPB SCH ×4 (08:44→21:02)
[2019-08-05] MEDS: Heparin 5000 units/ml inj SUBQ SCH (08:45)
[2019-08-05] MEDS: Vitamin B Complex Tab ORAL SCH (08:52)
[2019-08-05] MEDS: Losartan 25mg tab ORAL SCH (09:00)
--- NOTE | 2019-08-05 09:45 | NUR ---
NURSE NOTES: Received phone call from radiology, patient's CT scan changed to CT without contrast after Dr. Austin spoke with Dr. Contreras regarding patient's allergy to iodine
--- NOTE | 2019-08-05 11:57 | Diagnostic Imaging Report ---
Clinical Indication: Left-sided chest pain, possible pleural effusion Technique: Spiral acquisitions obtained through the chest. No IV contrast utilized, due to history of contrast allergy and after discussion with referring physician. Multiplanar reconstructions generated. Total dose length product 146 mGycm. CTDIvol(s) 4 mGy. Dose reduction achieved using automated exposure control Comparison: Chest CT angiogram dated 08/07/2008 Findings: Point is presumably a ventriculoperitoneal shunt traverses the right chest wall, this imaging volume before is seen to enter the peritoneal space. There is another tube coiled in the pleural space which goes cephalad beyond the imaging volume and is seen on recent chest radiograph 2 probably represent a ventriculopleural shunt. The latter shunt is not evident on the prior chest CT, but is visualized on an abdominal CT scan of 01/14/2011.. There is a moderate to large right pleural effusion. There is compressive atelectasis of a significant portion of the right lower lobe as a result. There are also mild atelectatic changes of the right upper lobe. No definite left pleural effusion is evident. There is some focal prominent fat in the left lower posterior hemithorax. There is very slight thickening of the superior lateral aspect of the left major fissure. There are some atelectatic changes in the dependent portion of the left lower lobe. The lungs and pleural spaces are otherwise clear. The size is normal. No mediastinal or hilar mass or adenopathy. The thyroid is prominent without definite focal lesion. No pericardial effusion. No axillary or chest wall mass or adenopathy. Esophagus is unremarkable. The bones demonstrate evidence of extensive thoracolumbar spinal fusion surgery. There is mild rotoscoliotic deformity. The included upper abdominal anatomy demonstrate an unusual appearance to the right renal upper pole. This is probably a manifestation of cortical scarring with extension of sinus fat into the cortical region. Appearance is similar to previous studies. Impression: Moderate to large right pleural effusion. This is possibly related to the presence of what is presumably a ventriculopleural shunt catheter. There is resultant compressive atelectatic change of portions of the right lower lobe No left pleural effusion demonstrated. There is minimal dependent atelectasis in the left lower lobe. Left lung is otherwise clear. Evidence of extensive thoracolumbar spinal fusion surgery, also previously demonstrated. There is mild rotoscoliotic deformity Ventriculoperitoneal shunt tubing is also demonstrated. The CT scanner at [facility] is accredited by the [employer] and the scans are performed using protocols designed to limit radiation exposure to as low as reasonably achievable to attain images of sufficient resolution adequate for diagnostic evaluation.
[2019-08-05 12:00] VITALS: BP 107/64
[2019-08-05 16:00] VITALS: BP 105/66
--- NOTE | 2019-08-05 16:50 | NUR ---
CASE MANAGEMENT: REVIEW 48 YEAR OLD FEMALE CC: CHEST PAIN . HX SPINAL BIFIDA . 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 COVID R/O . T 98.2 HR 88 RR 18 BP 111/57 SAT 97% NC/2L TROP I 0.[address] CHEST -- MODERATE TO LARGE RIGHT PLEURAL EFFUSION IS: VANCOMYCIN IV X1 LASIX 20MG IV X1 SOLU-MEDROL IV X1 D5 1/2 NS IVF BOLUS X1 PATIENT ADMITTED TO STEP DOWN UNIT 08/03/2019 DCP: PATIENT IS FROM [facility]
--- NOTE | 2019-08-05 19:09 | NUR ---
HAND-OFF: Report given to Dakota Casas RN. Patient in stable condition.
--- NOTE | 2019-08-05 19:34 | NUR ---
NURSE NOTES: Received report from GIA Diaz, pt. is PUI- isolation applied, pt. appears to be A/O x's3-4 -able to make needs known, no signs or symptoms of acute cardiac or respiratory distress noted, pt. appears to be sating well on room air-no distress noted, bed alarm on, side rails up x's 3 and safety brakes engaged, side rails padded for seizure precautions- no seizure activity noted, pt. is SR on monitor, Pt. has urostomy to left side abdomen area- appears to be patent and draining, pt. appears to be clean and dry- and appears to be comfortable, LFA 20G IV intact and patent, safety measure continued, will continue to monitor pt. and with plan of care.
[2019-08-05 19:49] VITALS: BP 115/71
--- NOTE | 2019-08-05 20:17 | General Progress Note ---
Assessment/Plan Problem List: (1) CVA, old, hemiparesis ICD Codes: I69.359 - Hemiplegia and hemiparesis following cerebral infarction affecting unspecified side SNOMED: 831731322 (2) Chest pain ICD Codes: R07.9 - Chest pain, unspecified SNOMED: 79400438, 42672368, 21231933 (3) Pleural effusion, right ICD Codes: J90 - Pleural effusion, not elsewhere classified SNOMED: 04734608 Assessment/Plan: d/w dr mariano, for thoracentesis Subjective Constitutional: Reports: weakness HEENT: Reports: no symptoms Cardiovascular: Reports: no symptoms Respiratory: Reports: cough Gastrointestinal/Abdominal: Reports: no symptoms Genitourinary: Reports: incontinence Neurologic/Psychiatric: Reports: pre-existing deficit Endocrine: Reports: no symptoms Allergies: Coded Allergies: CODEINE (Unverified Allergy, Unknown, 08/03/19) IODINE (Verified Allergy, Unknown, 01/15/11) LATEX (Verified Allergy, Unknown, 08/06/08) PENICILLINS (Verified Allergy, Unknown, 08/06/08) Uncoded Allergies: LACTOSE INTOLERANT (Allergy, Unknown, 06/10/17) POLLEN (Allergy, Unknown, 06/10/17) Objective Last 24 Hour Vital Signs Date Time Temp Pulse Resp B/P (MAP) Pulse Ox O2 Delivery O2 Flow Rate FiO2 08/05/19 20:00 105 08/05/19 19:49 97.5 105 16 115/71 (86) 98 08/05/19 16:00 98.1 104 18 105/66 (79) 98 08/05/19 15:23 106 08/05/19 12:27 97 08/05/19 12:00 97.5 97 18 107/64 (78) 100 08/05/19 09:00 100/59 08/05/19 08:46 86 08/05/19 08:00 Nasal Cannula 2.0 08/05/19 08:00 97.5 91 16 100/59 (73) 99 08/05/19 04:00 97.9 89 20 109/58 (75) 99 08/05/19 04:00 Nasal Cannula 2.0 08/05/19 03:45 89 08/05/19 00:00 Nasal Cannula 2.0 08/05/19 00:00 97.9 87 20 106/56 (73) 99 08/04/19 23:35 93 Intake and Output 08/04/19 08/05/19 19:00 07:00 Intake Total 416.666 ml Output Total 2000 ml 700 ml Balance -2000 ml -283.334 ml IV Total 416.666 ml Output Urine Total 2000 ml 700 ml # Bowel Movements 2 3 Laboratory Tests 08/04/19 22:15: Vancomycin Level Trough 21.5H 08/05/19 04:20: White Blood Count 7.1, Red Blood Count 5.10, Hemoglobin 12.5, Hematocrit 39.0, Mean Corpuscular Volume 76L, Mean Corpuscular Hemoglobin 24.6L, Mean Corpuscular Hemoglobin Concent 32.1, Red Cell Distribution Width 19.2H, Platelet Count 228, Mean Platelet Volume 4.8L, Neutrophils (%) (Auto) 56.8, Lymphocytes (%) (Auto) 29.1, Monocytes (%) (Auto) 12.3H, Eosinophils (%) (Auto) 0.7, Basophils (%) (Auto) 1.1, Sodium Level 139, Potassium Level 4.2, Chloride Level 107, Carbon Dioxide Level 22, Anion Gap 10, Blood Urea Nitrogen 12, Creatinine 0.4L, Estimat Glomerular Filtration Rate > 60, Glucose Level 81, Calcium Level 8.8, Troponin I 0.000, Pro-B-Type Natriuretic Peptide 159H Height (Feet): 5 Height (Inches): 4.00 Weight (Pounds): 150 General Appearance: no apparent distress, alert EENT: normal ENT inspection Cardiovascular: regular rhythm Respiratory/Chest: decreased breath sounds Abdomen: non tender Edema: no edema noted Arm (L), no edema noted Arm (R), no edema noted Leg (L), no edema noted Leg (R), no edema noted Pedal (L), no edema noted Pedal (R), no edema noted Generalized Neurologic: motor weakness Eliseo Contreras MD August 05, 2019 20:17
[2019-08-06] VITALS: BP 108/69
--- NOTE | 2019-08-06 02:15 | Progress Note ---
DATE: 08/05/2019 The patient continues to have some sharp chest discomfort and shortness of breath. CAT scan reveals significant pleural effusion. PHYSICAL EXAMINATION: VITAL SIGNS: Blood pressure 115/71, pulse 105, respirations 16, afebrile. LUNGS: Diminished breath sounds. A few rales. CARDIAC: Regular rhythm. Rapid rate. Normal S1, S2. No new murmur. ABDOMEN: Soft. EXTREMITIES: No edema. LABORATORY DATA: White count 7, hemoglobin 12.5. Potassium 4.2, BUN 12, creatinine 0.4, troponin 0, pro-natriuretic peptide 159. IMPRESSION: 1. 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 2. Moderate protein-calorie malnutrition, exacerbating third-spacing problems. 3. Secondary sinus tachycardia. 4. Pleuritic chest pain. 5. Compensated diastolic dysfunction with no acute congestive heart failure. PLAN: 1. Symptomatic thoracentesis. 2. Protein supplement. 3. Reassess for maintenance diuretic once pleural cavity is drained. 4. Continue and titrate beta-carrillo dosing. Odin Wilkins M.D. DR: EMILY JOB#: [id number] CC:
[2019-08-06 04:00] VITALS: BP 118/63
[2019-08-06] MEDS: NovoLOG Insulin Flexpen SUBQ SCH ×4 (05:30→21:00)
--- NOTE | 2019-08-06 06:40 | NUR ---
HAND-OFF: Report given to GIA Wright- pt.transferred to telemetry room 207-2- pt. remains stable and no signs of distress noted- aware to f/u on thoracentesis and Covid swab. 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
--- NOTE | 2019-08-06 06:45 | NUR ---
NURSE NOTES: Pt transferred from [facility]. Received report from Bhumi NIELSEN. Pt in stable condition. Continue to monitor.
--- NOTE | 2019-08-06 07:10 | NUR ---
HAND-OFF: Report given to Sharonda NIELSEN.
[2019-08-06 07:13] LABS: HEMATOCRIT 44.6 % (37.0-47.0); HEMOGLOBIN 13.9 G/DL (12.0-16.0); MEAN CORPUSCULAR VOLUME 78 FL (80-99); PLATELET COUNT 276 K/UL (150-450); RED BLOOD COUNT 5.74 M/UL (4.20-5.40); RED CELL DISTRIBUTION WIDTH 19.6 % (11.6-14.8); WHITE BLOOD COUNT 7.9 K/UL (4.8-10.8)
[2019-08-06 07:21] LABS: ANION GAP 13 mmol/L (5-15); BLOOD UREA NITROGEN 10 mg/dL (7-18); CALCIUM 9.3 MG/DL (8.5-10.1); CARBON DIOXIDE 21 MMOL/L (21-32); CHLORIDE 104 MMOL/L (98-107); CREATININE 0.4 MG/DL (0.55-1.30); POTASSIUM 4.2 MMOL/L (3.5-5.1); SODIUM 138 MMOL/L (136-145)
--- NOTE | 2019-08-06 07:30 | NUR ---
NURSE NOTES: Received report from GIA Wright. Pt A/O x4, able to make needs known. Pt denies any pain, no s/sx of acute distress, pt breathing even and unlabored in RA. Pt noted to have urostomy in L side of the abdomen, draining well. IV site patent and asymptomatic. Pt on fall, aspiration, and seizure precautions. Side rails padded, bed on lowest position, call light within reach. Will continue plan of care,.
[2019-08-06 08:00] VITALS: BP 101/50
[2019-08-06] MEDS: Losartan 25mg tab ORAL SCH (09:00)
[2019-08-06] MEDS: Aspirin Baby 81mg ORAL SCH (09:14)
[2019-08-06] MEDS: Sertraline 100mg tab ORAL SCH (09:14)
[2019-08-06] MEDS: Vancomycin 1gm/D5W 275ml IVPB SCH ×2 (09:14)
[2019-08-06] MEDS: Ascorbic Acid 500mg tab ORAL SCH ×2 (09:14→17:41)
[2019-08-06] MEDS: Sennosides 8.6mg tab ORAL SCH ×2 (09:15→17:41)
[2019-08-06] MEDS: Multivitamin w/Minerals tab ORAL SCH (09:15)
[2019-08-06] MEDS: Vitamin B Complex Tab ORAL SCH (09:16)
--- NOTE | 2019-08-06 09:22 | Pulmonology Progress Note ---
Subjective Allergies: Coded Allergies: CODEINE (Unverified Allergy, Unknown, 08/03/19) IODINE (Verified Allergy, Unknown, 01/15/11) LATEX (Verified Allergy, Unknown, 08/06/08) PENICILLINS (Verified Allergy, Unknown, 08/06/08) Uncoded Allergies: LACTOSE INTOLERANT (Allergy, Unknown, 06/10/17) POLLEN (Allergy, Unknown, 06/10/17) Subjective care noted and reviewed no distress CT chest reviewed tap ordered Objective Last 24 Hour Vital Signs Date Time Temp Pulse Resp B/P (MAP) Pulse Ox O2 Delivery O2 Flow Rate FiO2 08/06/19 09:00 101/50 08/06/19 09:00 87 101/50 08/06/19 08:00 97.7 87 20 101/50 (67) 96 08/06/19 04:00 98.4 103 16 118/63 (81) 98 08/06/19 03:27 87 08/06/19 00:00 97.9 98 16 108/69 (82) 98 08/06/19 00:00 89 08/05/19 21:03 105 115/71 08/05/19 21:00 Nasal Cannula 2.0 08/05/19 20:00 105 08/05/19 19:49 97.5 105 16 115/71 (86) 98 08/05/19 16:00 98.1 104 18 105/66 (79) 98 08/05/19 15:23 106 08/05/19 12:27 97 08/05/19 12:00 97.5 97 18 107/64 (78) 100 Intake and Output 08/05/19 08/06/19 19:00 07:00 Intake Total 1045.000 ml 417.416 ml Output Total 600 ml 650 ml Balance 445.000 ml -232.584 ml Intake Oral 720 ml IV Total 325.000 ml 417.416 ml Output Urine Total 600 ml 650 ml # Bowel Movements 2 1 Objective WDWN NAD reduced breath sounds right without rhonchi or wheeze [id number] without MRG NABS nontender no HSM no CCE focal weakness Microbiology Date/Time Source Procedure Growth Status 08/03/19 14:20 Blood Blood Culture - Preliminary NO GROWTH AFTER 48 HOURS Resulted 08/03/19 13:50 Blood Blood Culture - Preliminary NO GROWTH AFTER 48 HOURS Resulted 08/03/19 16:05 Nasal Nares MRSA Culture - Final NO METHICILLIN RESISTANT STAPH AUREUS... Complete 08/03/19 16:30 Urine,Clean Catch Urine Culture - Final Proteus Mirabilis Escherichia Coli Complete 08/03/19 16:05 Rectum - Final NO CARBAPENEM-RESISTANT ENTEROBACTERI... Complete Laboratory Tests 08/06/19 06:15: White Blood Count 7.9, Red Blood Count 5.74H, Hemoglobin 13.9, Hematocrit 44.6, Mean Corpuscular Volume 78L, Mean Corpuscular Hemoglobin 24.2L, Mean Corpuscular Hemoglobin Concent 31.2L, Red Cell Distribution Width 19.6H, Platelet Count 276, Mean Platelet Volume 5.8L, Neutrophils (%) (Auto) , Lymphocytes (%) (Auto) , Monocytes (%) (Auto) , Eosinophils (%) (Auto) , Basophils (%) (Auto) , Neutrophils % (Manual) [Pending], Lymphocytes % (Manual) [Pending], Platelet Estimate [Pending], Platelet Morphology [Pending], Sodium Level 138, Potassium Level 4.2, Chloride Level 104, Carbon Dioxide Level 21, Anion Gap 13, Blood Urea Nitrogen 10, Creatinine 0.4L, Estimat Glomerular Filtration Rate > 60, Glucose Level 71L, Calcium Level 9.3 08/06/19 08:37: Prothrombin Time 10.8, Prothromb Time International Ratio 1.0 Current Medications Medications (Trade) Dose Ordered Sig/Jeniffer Route PRN Reason Start Time Stop Time Status Last Admin Dose Admin Acetaminophen (Tylenol) 650 mg Q4H PRN ORAL Mild Pain (Pain Scale 1-3) 08/03/19 17:15 09/02/19 17:14 Acetaminophen (Tylenol) 650 mg Q4H PRN ORAL Temp >100.5 08/03/19 17:15 09/02/19 17:14 Artificial Tears (Akwa-Tears) 1 drop TID BOTH EYES 08/03/19 22:00 09/02/19 21:59 08/05/19 18:04 Ascorbic Acid (Vitamin C) 500 mg TWICE A DAY ORAL 08/03/19 18:00 09/02/19 17:59 08/06/19 09:14 Aspirin (ASA) 81 mg DAILY ORAL 08/03/19 17:15 09/17/19 17:14 08/06/19 09:14 Cefepime HCl 1 gm/ Dextrose 50 ml @ 100 mls/hr Q12H IVPB 08/04/19 06:00 08/11/19 05:59 08/06/19 05:07 Cyclobenzaprine HCl (Flexeril) 10 mg Q6H PRN ORAL Muscle Spasm 08/03/19 17:15 09/02/19 17:14 Dextrose (Dextrose 50%) 25 ml Q30M PRN IV Hypoglycemia 08/04/19 11:30 11/02/19 11:29 Dextrose (Dextrose 50%) 50 ml Q30M PRN IV Hypoglycemia 08/04/19 11:30 11/02/19 11:29 Diclofenac Sodium (Voltaren gel) 1 applic Q6HR PRN TOPIC For Pain 08/03/19 18:00 11/01/19 17:59 08/03/19 18:49 Hydromorphone HCl (Dilaudid) 4 mg Q6H PRN ORAL Severe Pain (Pain Scale 7-10) 08/03/19 17:15 08/10/19 17:14 Insulin Aspart (NovoLOG) BEFORE MEALS AND HS SUBQ 08/04/19 12:30 11/02/19 12:29 08/05/19 21:02 Iohexol (OMNIPAQUE-300 100ml) 100 ml ONCE PRN INJ Radiology procedure 08/04/19 12:00 08/06/19 23:59 Losartan Potassium (Cozaar) 25 mg DAILY ORAL 08/04/19 09:00 09/03/19 08:59 08/04/19 09:19 Metoprolol Tartrate (Lopressor) 25 mg EVERY 12 HOURS ORAL 08/03/19 18:30 11/01/19 18:29 08/05/19 21:03 Multivitamins Therapeutic (Therapeutic Multivitamin) 1 ea DAILY ORAL 08/04/19 09:00 09/03/19 08:59 08/06/19 09:15 Ondansetron HCl (Zofran) 4 mg Q6H PRN IVP Nausea & Vomiting 08/03/19 17:15 09/02/19 17:14 Polyethylene Glycol (Miralax) 17 gm DAILYPRN PRN ORAL Constipation 08/03/19 17:15 09/02/19 17:14 Risperidone (RisperDAL) 0.5 mg QHS ORAL 08/03/19 21:00 09/17/19 20:59 08/05/19 21:03 Sennosides (Senokot) 8.6 mg BID ORAL 08/03/19 18:00 09/02/19 17:59 08/06/19 09:15 Sertraline HCl (Zoloft) 100 mg DAILY ORAL 08/04/19 09:00 09/03/19 08:59 08/06/19 09:14 Tramadol HCl (Ultram) 50 mg Q12H PRN ORAL Moderate Pain (Pain Scale 4-6) 08/03/19 17:15 08/10/19 17:14 Valproic Acid (Depakene) 250 mg Q8HR ORAL 08/03/19 22:00 09/02/19 21:59 08/06/19 05:06 Vancomycin HCl (Vanco rx to dose) 1 ea DAILY PRN MISC Per rx protocol 08/03/19 17:15 09/02/19 17:14 Vancomycin HCl 1 gm/Dextrose 275 ml @ 183.708 mls/hr Q12HR IVPB 08/05/19 09:00 08/10/19 08:59 08/06/19 09:14 Vitamin B Complex (Vitamin B Complex) 1 tab DAILY ORAL 08/04/19 09:00 11/02/19 08:59 08/06/19 09:16 Assessment/Plan Assessment/Plan BI SOLUTIONS ARCHITECT shunt focal weakness osteopenia pleural effusion possible sepsis COVID rule out PLAN care noted tap today check fluid results keep negative monitor cultures off load monitor imaging impression, plan, and exam edited and reviewed in detail care discussed with Sebastian Miranda MD August 06, 2019 09:22
--- NOTE | 2019-08-06 10:54 | NUR ---
CASE MANAGEMENT:REVIEW 08/06/19 SI: POSSIBLE SEPSIS. 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 UTI. SUSPECTED COVID 97.7 87 20 101/50 96% ON 2L/NC GLUCOSE-71 SS INSULIN AC+HS SQ IS: IV VANCOMYCIN Q12 IV CEFEPIME Q12 SS INSULIN AC+HS SQ COZAAR PO QD MVI PO QD ZOLOFT PO QD DEPAKENE PO Q8HRS RISPERDAL PO QHS LOPRESSOR PO Q12 ASA PO QD : NOW ON TELEMETRY FROM SDU DCP: PATIENT IS FROM [facility] PLAN: F/U ON PENDING COVID SWABS DONE ON 08/03/19 AND 08/05/19 US GUIDED THORACENTESIS
[2019-08-06 12:00] VITALS: BP 105/52
--- NOTE | 2019-08-06 12:31 | General Progress Note ---
Assessment/Plan Problem List: (1) CVA, old, hemiparesis ICD Codes: I69.359 - Hemiplegia and hemiparesis following cerebral infarction affecting unspecified side SNOMED: 484038136 (2) Chest pain ICD Codes: R07.9 - Chest pain, unspecified SNOMED: 22120087, 65042946, 60170108 (3) Pleural effusion, right ICD Codes: J90 - Pleural effusion, not elsewhere classified SNOMED: 37138356 (4) ROPE RIDER (ventriculoperitoneal) shunt status ICD Codes: Z98.2 - Presence of cerebrospinal fluid drainage device SNOMED: 194074581, 55022139, 58120131 (5) Urinary tract infection ICD Codes: N39.0 - Urinary tract infection, site not specified SNOMED: 98232989 Assessment/Plan: d/w dr mariano, for thoracentesis, uti rx keflex, has no allergy to keflex, Subjective Constitutional: Reports: weakness HEENT: Reports: no symptoms Cardiovascular: Reports: no symptoms Respiratory: Reports: no symptoms Gastrointestinal/Abdominal: Reports: no symptoms Genitourinary: Reports: incontinence Neurologic/Psychiatric: Reports: pre-existing deficit Allergies: Coded Allergies: CODEINE (Unverified Allergy, Unknown, 08/03/19) IODINE (Verified Allergy, Unknown, 01/15/11) LATEX (Verified Allergy, Unknown, 08/06/08) PENICILLINS (Verified Allergy, Unknown, 08/06/08) Uncoded Allergies: LACTOSE INTOLERANT (Allergy, Unknown, 06/10/17) POLLEN (Allergy, Unknown, 06/10/17) Objective Last 24 Hour Vital Signs Date Time Temp Pulse Resp B/P (MAP) Pulse Ox O2 Delivery O2 Flow Rate FiO2 08/06/19 09:00 101/50 08/06/19 09:00 87 101/50 08/06/19 09:00 Room Air 08/06/19 08:00 97.7 87 20 101/50 (67) 96 08/06/19 07:43 88 08/06/19 04:00 98.4 103 16 118/63 (81) 98 08/06/19 03:27 87 08/06/19 00:00 97.9 98 16 108/69 (82) 98 08/06/19 00:00 89 08/05/19 21:03 105 115/71 08/05/19 21:00 Nasal Cannula 2.0 08/05/19 20:00 105 08/05/19 19:49 97.5 105 16 115/71 (86) 98 08/05/19 16:00 98.1 104 18 105/66 (79) 98 08/05/19 15:23 106 Intake and Output 08/05/19 08/06/19 19:00 07:00 Intake Total 1045.000 ml 417.416 ml Output Total 600 ml 650 ml Balance 445.000 ml -232.584 ml Intake Oral 720 ml IV Total 325.000 ml 417.416 ml Output Urine Total 600 ml 650 ml # Bowel Movements 2 1 Laboratory Tests 08/06/19 06:15: White Blood Count 7.9, Red Blood Count 5.74H, Hemoglobin 13.9, Hematocrit 44.6, Mean Corpuscular Volume 78L, Mean Corpuscular Hemoglobin 24.2L, Mean Corpuscular Hemoglobin Concent 31.2L, Red Cell Distribution Width 19.6H, Platelet Count 276, Mean Platelet Volume 5.8L, Neutrophils (%) (Auto) , Lymphocytes (%) (Auto) , Monocytes (%) (Auto) , Eosinophils (%) (Auto) , Basophils (%) (Auto) , Differential Total Cells Counted 100, Neutrophils % ( Manual) 59, Lymphocytes % (Manual) 32, Monocytes % (Manual) 9, Eosinophils % ( Manual) 0, Basophils % (Manual) 0, Band Neutrophils 0, Platelet Estimate Adequate, Platelet Morphology Normal, Anisocytosis 1+, Sodium Level 138, Potassium Level 4.2, Chloride Level 104, Carbon Dioxide Level 21, Anion Gap 13, Blood Urea Nitrogen 10, Creatinine 0.4L, Estimat Glomerular Filtration Rate > 60 , Glucose Level 71L, Calcium Level 9.3 08/06/19 08:37: Prothrombin Time 10.8, Prothromb Time International Ratio 1.0 Height (Feet): 5 Height (Inches): 4.00 Weight (Pounds): 151 General Appearance: no apparent distress, alert EENT: normal ENT inspection Cardiovascular: normal rate Respiratory/Chest: decreased breath sounds Abdomen: non tender Edema: no edema noted Arm (L), no edema noted Arm (R), no edema noted Leg (L), no edema noted Leg (R), no edema noted Pedal (L), no edema noted Pedal (R), no edema noted Generalized Neurologic: motor weakness Eliseo Contreras MD August 06, 2019 12:31
[2019-08-06] MEDS: Cephalexin 500mg cap ORAL SCH ×2 (13:19→17:41)
--- NOTE | 2019-08-06 14:06 | Pre-Procedure Note/Attestation ---
Pre-Procedure Note/Attestation Complete Prior to Procedure Planned Procedure: right Procedure Narrative: thoracentesis Indications for Procedure Pre-Operative Diagnosis: Pleural effusion Attestation I attest that I discussed the nature of the procedure; its benefits; risks and complications; and alternatives (and the risks and benefits of such alternatives ), prior to the procedure, with the patient (or the patient's legal dental detail representative). I attest that, if there was a reasonable possibility of needing a blood transfusion, the patient (or the patient's legal dental detail representative) was given the [facility] standardized written summary, pursuant to the [place] Blood Safety Act ([place] Health and Safety Code # 1645, as amended). I attest that I re-evaluated the patient just prior to the surgery and that there has been no change in the patient's H&P, except as documented below: Lamonte Austin MD August 06, 2019 14:06
[2019-08-06 16:00] VITALS: BP 110/62
--- NOTE | 2019-08-06 16:26 | NUR ---
HAND-OFF: Report given to GIA Lamar. Pt in stable condition, endorsed plan of care.
--- NOTE | 2019-08-06 16:44 | Diagnostic Imaging Report ---
Indications: Pleural effusion Technique: Ultrasound used to localize optimal puncture site. Sterile prepping and draping right chest. Local anesthesia with 1% lidocaine. Under real-time ultrasound guidance, puncture pleural space using thoracentesis needle. Stylet removed. Catheter placed to vacuum bottle suction. Total 400 milliliters of a very clear fluid aspirated. Patient tolerated procedure well, without immediate complication. Findings: Followup sonography demonstrates complete resolution of pleural fluid. Impression: Successful ultrasound-guided thoracentesis, yielding 400 milliliters of fluid. Note unusually clear appearance of fluid, suggesting that this represents CSF from the shunt catheter rather than a pleural effusion
--- NOTE | 2019-08-06 17:33 | Diagnostic Imaging Report ---
Indication: Postthoracentesis Technique: One view of the chest Comparison: 08/03/2019 Findings: Interim resolution of previously demonstrated right pleural effusion. No pneumothorax. The lungs pleural spaces are currently clear. Other findings are unchanged Impression: Resolved right pleural effusion, status post right thoracentesis. No acute process currently. No radiographically evident complication
--- NOTE | 2019-08-06 19:36 | NUR ---
HAND-OFF: Report given to Alor/RNk, pt in stable condition. endorsed plan of care.
--- NOTE | 2019-08-06 19:49 | NUR ---
NURSE NOTES: Received report from GIA Lamar. Patient is awake lying semi-croft's; resting comfortably. No signs of acute distress noted; complains of pain. AOx4; able to make needs known. Checked IV site; patent and flushed. No erythema, bleeding, or infiltration noted. Left urostomy in place draining well to gravity. Patient on p200, low air loss mattress for appropriate wound management. Bed at lowest position, brakes on, siderails up x3. Siderails padded following seizure precautions. Call light within reach. Will continue to monitor.
[2019-08-06 20:00] VITALS: BP 115/77
[2019-08-07] VITALS: BP 100/58
[2019-08-07] MEDS: Cephalexin 500mg cap ORAL SCH ×3 (00:24→12:49)
--- NOTE | 2019-08-07 00:24 | NUR ---
NURSE NOTES: 0000 dose of Cephalexin administered.
[2019-08-07 04:00] VITALS: BP 96/57
[2019-08-07] MEDS: NovoLOG Insulin Flexpen SUBQ SCH ×2 (05:59→11:30)
--- NOTE | 2019-08-07 05:59 | NUR ---
NURSE NOTES: Patient is refusing to be repositioned and have labs drawn at this time. Risks and benefits explained; still refusing, citing that she wants to go to sleep.
--- NOTE | 2019-08-07 07:32 | NUR ---
HAND-OFF: Report given to GIA Lamar. Patient is asleep lying semi-croft's; resting comfortably. Left urostomy draining to gravity. In stable condition.
--- NOTE | 2019-08-07 07:35 | NUR ---
NURSE NOTES: pt in bed sleeping refused labs earlier. pt on cardiac/vascular sonographer no signs of cardiac or respiratory distress. no pain, Call light within reach, bed in lowest position and locked. pt didnt want breakfast this morning. Will continue to monitor
[2019-08-07 08:44] LABS: BASOPHILS % (AUTO) 1.6 % (0.0-2.0); EOSINOPHILS % (AUTO) 0.8 % (0.0-3.0); HEMATOCRIT 39.4 % (37.0-47.0); HEMOGLOBIN 11.5 G/DL (12.0-16.0); LYMPHOCYTES % (AUTO) 33.5 % (20.0-45.0); MEAN CORPUSCULAR VOLUME 81 FL (80-99); MONOCYTES % (AUTO) 11.9 % (1.0-10.0); NEUTROPHILS % (AUTO) 52.3 % (45.0-75.0); PLATELET COUNT 252 K/UL (150-450); RED BLOOD COUNT 4.84 M/UL (4.20-5.40); RED CELL DISTRIBUTION WIDTH 21.2 % (11.6-14.8); WHITE BLOOD COUNT 6.5 K/UL (4.8-10.8)
--- NOTE | 2019-08-07 08:46 | Pulmonology Progress Note ---
Subjective Allergies: Coded Allergies: CODEINE (Unverified Allergy, Unknown, 08/03/19) IODINE (Verified Allergy, Unknown, 01/15/11) LATEX (Verified Allergy, Unknown, 08/06/08) PENICILLINS (Verified Allergy, Unknown, 08/06/08) Uncoded Allergies: LACTOSE INTOLERANT (Allergy, Unknown, 06/10/17) POLLEN (Allergy, Unknown, 06/10/17) Subjective care noted and reviewed no distress tap completed Objective Last 24 Hour Vital Signs Date Time Temp Pulse Resp B/P (MAP) Pulse Ox O2 Delivery O2 Flow Rate FiO2 08/07/19 04:00 96.8 91 20 96/57 (70) 94 08/07/19 04:00 90 08/07/19 00:00 97.9 107 19 100/58 (72) 98 08/07/19 00:00 100 08/06/19 21:18 122 115/77 08/06/19 21:00 Room Air 08/06/19 20:00 97.7 122 18 115/77 (90) 94 08/06/19 20:00 139 08/06/19 16:00 97.9 135 20 110/62 (78) 98 08/06/19 15:12 127 08/06/19 12:00 97.5 103 18 105/52 (69) 97 08/06/19 11:49 102 08/06/19 09:00 101/50 08/06/19 09:00 87 101/50 08/06/19 09:00 Room Air Intake and Output 08/06/19 08/07/19 19:00 07:00 Intake Total 120 ml 120 ml Output Total 450 ml 300 ml Balance -330 ml -180 ml Intake Oral 120 ml 120 ml Output Urine Total 450 ml 300 ml # Bowel Movements 1 Objective WDWN NAD reduced breath sounds without rhonchi or wheeze [id number] without MRG NABS nontender no HSM no CCE focal weakness Laboratory Tests 08/07/19 08:30: White Blood Count 6.5, Red Blood Count 4.84, Hemoglobin 11.5L, Hematocrit 39.4, Mean Corpuscular Volume 81, Mean Corpuscular Hemoglobin 23.8L, Mean Corpuscular Hemoglobin Concent 29.2L, Red Cell Distribution Width 21.2H, Platelet Count 252 , Mean Platelet Volume 5.6L, Neutrophils (%) (Auto) 52.3, Lymphocytes (%) (Auto ) 33.5, Monocytes (%) (Auto) 11.9H, Eosinophils (%) (Auto) 0.8, Basophils (%) ( Auto) 1.6, Sodium Level [Pending], Potassium Level [Pending], Chloride Level [ Pending], Carbon Dioxide Level [Pending], Blood Urea Nitrogen [Pending], Creatinine [Pending], Estimat Glomerular Filtration Rate [Pending], Glucose Level [Pending], Calcium Level [Pending] Current Medications Medications (Trade) Dose Ordered Sig/Jeniffer Route PRN Reason Start Time Stop Time Status Last Admin Dose Admin Acetaminophen (Tylenol) 650 mg Q4H PRN ORAL Mild Pain (Pain Scale 1-3) 08/03/19 17:15 09/02/19 17:14 Acetaminophen (Tylenol) 650 mg Q4H PRN ORAL Temp >100.5 08/03/19 17:15 09/02/19 17:14 Artificial Tears (Akwa-Tears) 1 drop TID BOTH EYES 08/03/19 22:00 09/02/19 21:59 08/06/19 17:40 Ascorbic Acid (Vitamin C) 500 mg TWICE A DAY ORAL 08/03/19 18:00 09/02/19 17:59 08/06/19 17:41 Aspirin (ASA) 81 mg DAILY ORAL 08/03/19 17:15 09/17/19 17:14 08/06/19 09:14 Cephalexin (Keflex) 500 mg Q6HR ORAL 08/06/19 12:32 08/13/19 12:31 08/07/19 05:50 Cyclobenzaprine HCl (Flexeril) 10 mg Q6H PRN ORAL Muscle Spasm 08/03/19 17:15 09/02/19 17:14 Dextrose (Dextrose 50%) 25 ml Q30M PRN IV Hypoglycemia 08/04/19 11:30 11/02/19 11:29 Dextrose (Dextrose 50%) 50 ml Q30M PRN IV Hypoglycemia 08/04/19 11:30 11/02/19 11:29 Diclofenac Sodium (Voltaren gel) 1 applic Q6HR PRN TOPIC For Pain 08/03/19 18:00 11/01/19 17:59 08/03/19 18:49 Hydromorphone HCl (Dilaudid) 4 mg Q6H PRN ORAL Severe Pain (Pain Scale 7-10) 08/03/19 17:15 08/10/19 17:14 08/06/19 12:18 Insulin Aspart (NovoLOG) BEFORE MEALS AND HS SUBQ 08/04/19 12:30 11/02/19 12:29 08/06/19 11:44 Losartan Potassium (Cozaar) 25 mg DAILY ORAL 08/04/19 09:00 09/03/19 08:59 08/04/19 09:19 Metoprolol Tartrate (Lopressor) 25 mg EVERY 12 HOURS ORAL 08/03/19 18:30 11/01/19 18:29 08/06/19 21:18 Multivitamins Therapeutic (Therapeutic Multivitamin) 1 ea DAILY ORAL 08/04/19 09:00 09/03/19 08:59 08/06/19 09:15 Ondansetron HCl (Zofran) 4 mg Q6H PRN IVP Nausea & Vomiting 08/03/19 17:15 09/02/19 17:14 Polyethylene Glycol (Miralax) 17 gm DAILYPRN PRN ORAL Constipation 08/03/19 17:15 09/02/19 17:14 Risperidone (RisperDAL) 0.5 mg QHS ORAL 08/03/19 21:00 09/17/19 20:59 08/06/19 21:17 Sennosides (Senokot) 8.6 mg BID ORAL 08/03/19 18:00 09/02/19 17:59 08/06/19 17:41 Sertraline HCl (Zoloft) 100 mg DAILY ORAL 08/04/19 09:00 09/03/19 08:59 08/06/19 09:14 Tramadol HCl (Ultram) 50 mg Q12H PRN ORAL Moderate Pain (Pain Scale 4-6) 08/03/19 17:15 08/10/19 17:14 08/06/19 21:17 Valproic Acid (Depakene) 250 mg Q8HR ORAL 08/03/19 22:00 09/02/19 21:59 08/07/19 05:50 Vitamin B Complex (Vitamin B Complex) 1 tab DAILY ORAL 08/04/19 09:00 11/02/19 08:59 08/06/19 09:16 Assessment/Plan Assessment/Plan 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
[2019-08-07] MEDS: Sennosides 8.6mg tab ORAL SCH (08:52)
[2019-08-07] MEDS: Losartan 25mg tab ORAL SCH (09:00)
[2019-08-07] MEDS: Ascorbic Acid 500mg tab ORAL SCH (09:07)
[2019-08-07] MEDS: Sertraline 100mg tab ORAL SCH (09:07)
[2019-08-07] MEDS: Multivitamin w/Minerals tab ORAL SCH (09:07)
[2019-08-07] MEDS: Aspirin Baby 81mg ORAL SCH (09:07)
[2019-08-07] MEDS: Vitamin B Complex Tab ORAL SCH (09:07)
[2019-08-07 09:13] LABS: ANION GAP 10 mmol/L (5-15); BLOOD UREA NITROGEN 12 mg/dL (7-18); CALCIUM 8.9 MG/DL (8.5-10.1); CARBON DIOXIDE 23 MMOL/L (21-32); CHLORIDE 106 MMOL/L (98-107); CREATININE 0.4 MG/DL (0.55-1.30); POTASSIUM 4.5 MMOL/L (3.5-5.1); SODIUM 139 MMOL/L (136-145)
--- NOTE | 2019-08-07 10:18 | Diagnostic Imaging Report ---
EXAM: ULTRASOUND Venous Duplex Scan Jer Leg CLINICAL HISTORY: Leg pain and edema. COMPARISON: None TECHNIQUE: Doppler examination include grayscale images obtained with and without compression, and color and spectral doppler analysis. FINDINGS: Doppler examination shows normal spontaneity, phasicity, compressibility in the bilateral lower extremities. There is no thrombus identified by grayscale. Normal color and spectral flow is identified. There is no evidence of valvular incompetency or insufficiency. IMPRESSION: UNREMARKABLE VENOUS DUPLEX.
--- NOTE | 2019-08-07 11:46 | NUR ---
*-*DISCHARGE PLANNING*-* PATIENT HAS BEEN REFERRED BACK TO: [facility] P: [phone] F: [phone] Addendum: 08/07/19 at 1244 by ISABELLA KING CM *-*DISCHARGE PLANNING*-* PATIENT HAS BEEN REFERRED BACK TO: [facility] P: [phone] S/W NABIL SORTO REVIEW, CALL BACK
[2019-08-07 12:38] VITALS: BP 107/59
--- NOTE | 2019-08-07 13:09 | NUR ---
*-*DISCHARGE PLANNED*-* PATIENT HAS BEEN ACCEPTED AND WILL BE DISCHARGED BACK TO: [facility] P: [phone] FOR NURSE TO NURSE REPORT ROOM# 125.A SKILL[facility]SP[facility] SET FOR 3:45PM S/W K[facility]STINA [id number] S/W PATIENTS COUSIN, G[facility]LEA [facility], WHO IS IN AGREEMENT WITH DISCHARGE PLAN.
--- NOTE | 2019-08-07 15:30 | NUR ---
NURSE NOTES: urostomy bag is leaking , cleaned pt and empty bag. pt will replaced bag once she goes back home today
--- NOTE | 2019-08-07 16:55 | NUR ---
Heplock removed from left forearm. site without redness, no swelling noted. Pt. awake aler & oriented, aware of discharge plans, Urostomy intact & draining to drainage bag. Discharged via ambulance in stable condition. belongings with patient.(ipad, construction site manager, & earphones with patient.)
[2019-08-07] MEDS ORDERED: NS 275ml ONE (17:07)
[2019-08-07] MEDS ORDERED: Tubing IV Secondary IV ONE (17:07)
--- NOTE | 2019-08-08 00:30 | Discharge Summary ---
DATE OF ADMISSION: 08/03/2019 DATE OF DISCHARGE: 08/07/2019 PERTINENT HISTORY: Patient is a 48-year-old lady with a history of spinal surgery with Rashid rods, SOUR BLEACHING PLEATER shunt, prior CVA, paraplegia admitted with left-sided chest pain. PERTINENT PHYSICAL FINDINGS: LUNGS: Diminished breath sounds at the right base. HEART: Regular rhythm. ABDOMEN: Soft. EXTREMITIES: Show muscle atrophy. NEUROLOGIC: Left-sided weakness. Paraplegia. COURSE IN THE HOSPITAL: The patient was ruled out for acute myocardial infarction. She had no further chest pain. She has right pleural effusion. She had ultrasound-guided paracentesis with clear fluid. Fluid studies pending. It was concerned that fluid may be related to a SOUR BLEACHING PLEATER shunt. There is no evidence of sepsis. Her COVID-19 test was negative. She was discharged in stable condition to her ECF. FINAL DIAGNOSES: 1. Chest pain atypical. Acute myocardial infarction ruled out. 2. Right pleural effusion thought to be secondary to SOUR BLEACHING PLEATER shunt. 3. History of spinal surgery. 4. History of CVA. 5. History of paraplegia. DISCHARGE DISPOSITION: Back to the ECF on a regular diet and medications per the discharge medication list. Follow up with her primary doctor, Dr. Esther Zafar who was contacted. Eliseo Contreras M.D. DR: RADHA JOB#: [id number] CC:
--- NOTE | 2019-08-09 08:00 | Progress Note ---
DATE: 08/07/2019 CARDIOLOGY PROGRESS NOTE SUBJECTIVE: Right thoracentesis completed yesterday without complications. Venous duplex scan today without DVT bilaterally. Patient feels better. PHYSICAL EXAMINATION: VITAL SIGNS: Blood pressure 107/68, heart rate 110, respirations 20, afebrile, room air oxygen sat 94 to 96%. LUNGS: Bilateral breath sounds. CARDIAC: Regular rhythm and rate. Normal S1, S2. ABDOMEN: Soft. EXTREMITIES: No edema. IMPRESSION: Improved. PLAN: 1. Stable to complete recovery at care home facility. 2. May consider advancing beta-carrillo dosing for better rate control. 3. Maintenance diuretic dose to be titrated. 4. Continue DVT prophylaxis. Odin Wilkins M.D. DR: EDWAR JOB#: [id number] CC:
--- NOTE | 2019-08-09 08:00 | Progress Note ---
DATE: 08/06/2019 CARDIOLOGY PROGRESS NOTE Late entry. SUBJECTIVE: Patient is status post thoracentesis. Fluid removal was completed. Patient has less congestion. PHYSICAL EXAMINATION: VITAL SIGNS: Blood pressure 115/77, heart rate 122, respirations 18, afebrile. LUNGS: Bilateral breath sounds slightly diminished. Few rhonchi. CARDIAC: Regular rhythm and rate. Normal S1, S2. ABDOMEN: Soft. EXTREMITIES: Trace edema. LABORATORY DATA: White count 7.9, hemoglobin 13.9. Potassium 4.2, BUN 10, creatinine 0.4. Chest x-ray following thoracentesis reveals resolved right pleural effusion. No pneumothorax. IMPRESSION: 1. Pleural effusion. 2. History of HEAD SCORER shunt. 3. Pleuritic chest pain. 4. Secondary sinus tachycardia. PLAN: 1. May avoid positive fluid balance. 2. No anti-inflammatory, analgesics. 3. DVT prophylaxis. 4. Follow up laboratory studies. Odin Wilkins M.D. DR: EDWAR JOB#: [id number] CC:
== END 2019-08-07 17:08 | DRG 92 ==
LOC: EDBD 13:15 → EMR 13:40 → EDBEDREQ 15:21 → 2W 15:30 → EDBEDREQ 18:54 → 2E 08-06 06:30
PROC: 0W993ZZ Drainage of Right Pleural Cavity, Percutaneous Approach (ICD-10-PCS; principal; 2019-08-06)
DX: T85.890A Other specified complication of nervous system prosthetic devices, implants and grafts, initial encounter (principal); J91.8 Pleural effusion in other conditions classified elsewhere; N39.0 Urinary tract infection, site not specified; I69.354 Hemiplegia and hemiparesis following cerebral infarction affecting left non-dominant side; I50.32 Chronic diastolic (congestive) heart failure; E44.0 Moderate protein-calorie malnutrition; J90 Pleural effusion, not elsewhere classified; I11.0 Hypertensive heart disease with heart failure; R07.89 Other chest pain; Z88.6 Allergy status to analgesic agent; Z88.0 Allergy status to penicillin; Z79.4 Long term (current) use of insulin; Q05.9 Spina bifida, unspecified; Z98.2 Presence of cerebrospinal fluid drainage device; G40.909 Epilepsy, unspecified, not intractable, without status epilepticus; M85.80 Other specified disorders of bone density and structure, unspecified site; Z91.040 Latex allergy status; Y84.8 Other medical procedures as the cause of abnormal reaction of the patient, or of later complication, without mention of misadventure at the time of the procedure
CPT/HCPCS: 36415; 71045; 71250; 76942; 80048; 80053; 80061; 80202; 81003; 81025; 82550; 82962; 83605; 83880; 84443; 84484; 85007; 85025; 85610; 86140; 87040; 87081; 87086; 87181; 87635; 93005; 93970; 99285; J1815

== ENCOUNTER 2019-08-19 08:19 | Inpatient (IN) | payer MEDICARE, MEDICAID ==
[~2019-08-19] VITALS: Ht 167.6 cm; Wt 40.6 kg
[~2019-08-19 08:19] MED LIST changes: +CALCIUM CARBON500 M1 PO; +FERROUS SULFAT325 M2 ORAL; +LIORESAL20 MG ORAL; +OMEPRAZOLE40 M1 ORAL; +OXISTAT30 G1 TP; +POLYETHYLENE GL17 GM ORAL; +SENNO8.6 MG ORAL
[2019-08-19 08:40] VITALS: BP 108/64
--- NOTE | 2019-08-19 08:40 | NUR ---
ED Nurse Note: pt brought in by ambulance from [facility] due to chest x-ray shows left side of pleural effusion. pcp doctor Ben spoke to ERMD. pt aao x4 and bedbound. FC present upon arrival. calm and cooperative. pt denied chest pain, cough, SOB. 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
--- NOTE | 2019-08-19 08:45 | NUR ---
ED Nurse Note: contracted Lt hand and colostomy bag on LUQ present. Addendum: 08/19/19 at 1249 by JOSIAS ILEOSTOMY
--- NOTE | 2019-08-19 09:02 | NUR ---
ED Nurse Note: blood sent to lab. chest x-ray at bedside.
[2019-08-19 09:14] LABS: BASOPHILS % (AUTO) 1.2 % (0.0-2.0); EOSINOPHILS % (AUTO) 0.6 % (0.0-3.0); HEMATOCRIT 43.8 % (37.0-47.0); HEMOGLOBIN 13.7 G/DL (12.0-16.0); MEAN CORPUSCULAR VOLUME 79 FL (80-99); MONOCYTES % (AUTO) 4.6 % (1.0-10.0); NEUTROPHILS % (AUTO) 60.6 % (45.0-75.0); PLATELET COUNT 261 K/UL (150-450); RED BLOOD COUNT 5.58 M/UL (4.20-5.40); RED CELL DISTRIBUTION WIDTH 19.5 % (11.6-14.8); WHITE BLOOD COUNT 8.6 K/UL (4.8-10.8)
[2019-08-19 09:29] LABS: ANION GAP 12 mmol/L (5-15); BLOOD UREA NITROGEN 16 mg/dL (7-18); CALCIUM 9.6 MG/DL (8.5-10.1); CARBON DIOXIDE 22 MMOL/L (21-32); CHLORIDE 107 MMOL/L (98-107); CREATININE 0.6 MG/DL (0.55-1.30); POTASSIUM 4.7 MMOL/L (3.5-5.1); SODIUM 141 MMOL/L (136-145)
[2019-08-19 09:42] LABS: ALANINE AMINOTRANSFERASE 15 U/L (12-78); ALBUMIN 3.7 G/DL (3.4-5.0); ALBUMIN/GLOBULIN RATIO 0.8 (1.0-2.7); ALKALINE PHOSPHATASE 92 U/L (46-116); ASPARTATE AMINO TRANSFERASE 13 U/L (15-37); BILIRUBIN,TOTAL 0.1 MG/DL (0.2-1.0)
--- NOTE | 2019-08-19 09:42 | Diagnostic Imaging Report ---
Indication: Shortness of breath Technique: One view of the chest Comparison: 08/06/2019 Findings: There is evidence of slight reaccumulation of pleural fluid on the right. Ventriculoperitoneal and ventriculopleural shunt tubing again projects over the right chest. The left lung and pleural space are clear. Spinal fusion hardware is again noted. Impression: Evidence of reaccumulating right pleural fluid, since prior study 08/06/2019 Other stable findings as described
--- NOTE | 2019-08-19 09:50 | Emergency Room Report ---
History of Present Illness General Chief Complaint: Dyspnea/Respdistress Source: Patient, Medical Record, EMS Present Illness HPI 48-year-old female presents for evaluation. Brought in by EMS from [facility] facility. Had chest x-ray which showed a pleural effusion. Patient was admitted here recently for pleural effusion. Denies any chest pain or shortness of breath. Denies any fevers or chills or cough. History of HAND GLUER AND SLICER shunt and is bedbound. No other aggravating relieving factors. 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 COVID-19 Screening: Negative COVID-19 COVID-19 Testing Source: [facility] Patient History Past Medical History: DM, HTN, CVA/TIA, seizures Past Surgical History: other - HAND GLUER AND SLICER shunt Pertinent Family History: none Social History: Denies: smoking, alcohol use, drug use Now: No Immunizations: UTD Reviewed Nursing Documentation: PMH: Agreed; PSxH: Agreed Nursing Documentation-PMH Hx Cardiac Problems: Yes - ANEMIA, HYPERLIPIDEMIA Hx Hypertension: Yes Hx Diabetes: Yes - TYPE 2 Hx Cancer: No Hx Gastrointestinal Problems: Yes - Gastritis Hx Cerebrovascular Accident: Yes - left hemiparesis Hx Seizures: Yes Hx Cerebral Palsy: Yes Hx Brain Shunt: Yes - HAND GLUER AND SLICER SHUNT & THOMAS RODS Review of Systems All Other Systems: negative except mentioned in HPI Physical Exam Vital Signs Date Time Temp Pulse Resp B/P (MAP) Pulse Ox O2 Delivery O2 Flow Rate FiO2 08/19/19 08:23 98.1 120 16 108/64 (79) 94 Room Air Sp02 EP Interpretation: reviewed, normal General Appearance: no apparent distress, alert, GCS 15, non-toxic Head: normocephalic, atraumatic Eyes: bilateral eye normal inspection, bilateral eye PERRL ENT: hearing grossly normal, normal pharynx, no angioedema, normal voice Neck: full range of motion, supple/symm/no masses Respiratory: chest non-tender, lungs clear, normal breath sounds, speaking full sentences Cardiovascular #1: regular rate, rhythm, no edema Cardiovascular #2: 2+ carotid (R), 2+ carotid (L), 2+ radial (R), 2+ radial (L) , 2+ dorsalis pedis (R), 2+ dorsalis pedis (L) Gastrointestinal: normal bowel sounds, non tender, soft, non-distended, no guarding, no rebound Rectal: deferred Genitourinary: normal inspection, no CVA tenderness Musculoskeletal: back normal, non-tender, other - contracted extremities Neurologic: alert, motor strength/tone normal, oriented x3, sensory intact, responsive, speech normal Psychiatric: judgement/insight normal, memory normal, mood/affect normal, no suicidal/homicidal ideation Reflexes: 3+ bicep (R), 3+ bicep (L), 3+ tricep (R), 3+ tricep (L), 3+ knee (R) , 3+ knee (L) Skin: other - see nursing skin notes Lymphatic: no adenopathy Medical Decision Making Diagnostic Impression: Primary Impression: Pleural effusion Additional Impression: CVA, old, hemiparesis ER Course Hospital Course 48-year-old female presents ED complaining of fluid in her lungs. h/o pleural effusion Differential diagnoses include: PA/unstable angina, contusion, muscle strain, PTX, rib fracture Clinical course Patient placed on stretcher. on monitor worker. After initial history and physical I ordered labs, EKG, chest x-ray labs reviewed- no leukocytosis, hemoglobin/hematocrit stable, electrolytes ok, trop negative, BNP ok EKG - sinus tachycardia no acute ischemic changes interpreted by me Chest x-ray- R sided pleural effusion Given IVFs. Case discussed with Dr. Contreras and he agreed to accept the patient to his service for further care and support I. I feel this is a highly complex case requiring extensive working including EKG/Rhythm strip, Xray/CT/US, Blood/urine lab work, repeat exams while in ED, and administration of strong opiates/narcotics for pain control, admission to hospital or close patient follow up. Diagnosis - pleural effusion, old CVA admitted to floor in serious condition Labs Test 08/19/19 08:40 White Blood Count 8.6 K/UL (4.8-10.8) Red Blood Count 5.58 M/UL (4.20-5.40) Hemoglobin 13.7 G/DL (12.0-16.0) Hematocrit 43.8 % (37.0-47.0) Mean Corpuscular Volume 79 FL (80-99) Mean Corpuscular Hemoglobin 24.5 PG (27.0-31.0) Mean Corpuscular Hemoglobin Concent 31.3 G/DL (32.0-36.0) Red Cell Distribution Width 19.5 % (11.6-14.8) Platelet Count 261 K/UL (150-450) Mean Platelet Volume 5.0 FL (6.5-10.1) Neutrophils (%) (Auto) 60.6 % (45.0-75.0) Lymphocytes (%) (Auto) 33.0 % (20.0-45.0) Monocytes (%) (Auto) 4.6 % (1.0-10.0) Eosinophils (%) (Auto) 0.6 % (0.0-3.0) Basophils (%) (Auto) 1.2 % (0.0-2.0) Sodium Level 141 MMOL/L (136-145) Potassium Level 4.7 MMOL/L (3.5-5.1) Chloride Level 107 MMOL/L (98-107) Carbon Dioxide Level 22 MMOL/L (21-32) Anion Gap 12 mmol/L (5-15) Blood Urea Nitrogen 16 mg/dL (7-18) Creatinine 0.6 MG/DL (0.55-1.30) Estimat Glomerular Filtration Rate > 60 mL/min (>60) Glucose Level 75 MG/DL (74-106) Calcium Level 9.6 MG/DL (8.5-10.1) Total Bilirubin 0.1 MG/DL (0.2-1.0) Aspartate Amino Transf (AST/SGOT) 13 U/L (15-37) Alanine Aminotransferase (ALT/SGPT) 15 U/L (12-78) Alkaline Phosphatase 92 U/L (46-116) Troponin I 0.000 ng/mL (0.000-0.056) Pro-B-Type Natriuretic Peptide 111 pg/mL (0-125) Total Protein 8.6 G/DL (6.4-8.2) Albumin 3.7 G/DL (3.4-5.0) Globulin 4.9 g/dL Albumin/Globulin Ratio 0.8 (1.0-2.7) EKG Diagnostic Results Rate: tachycardiac Rhythm: NSR ST Segments: no acute changes ASA given to the pt in ED: No Rhythm Strip Diag. Results EP Interpretation: yes Rhythm: NSR, no PVC's, no ectopy Chest X-Ray Diagnostic Results Chest X-Ray Diagnostic Results : Chest X-Ray Ordered: Yes # of Views/Limited/Complete: 1 View Indication: Shortness of Breath Interpretation: no pneumothorax, other - R sided pleural effusion Impression: Other - pleural effusion Last Vital Signs Date Time Temp Pulse Resp B/P (MAP) Pulse Ox O2 Delivery O2 Flow Rate FiO2 08/19/19 08:40 118 22 Room Air 08/19/19 08:40 98.1 108/64 94 Status: improved Disposition: ADMITTED INPATIENT Condition: Serious Referrals: NOT CHOSEN IPA/,REFERRING (PCP) Jose De Jesus Israel MD Aug 19, 2019 09:50
[2019-08-19 12:27] VITALS: BP 125/74
[2019-08-19] MEDS ORDERED: Hydromorphone 0.5mg/0.5ml inj IVP ONE (13:00)
--- NOTE | 2019-08-19 13:08 | NUR ---
ED Nurse Note: REPORT GIVEN TO REJI
--- NOTE | 2019-08-19 13:40 | NUR ---
NURSE NOTES: Received report from ED RN Brii. Received pt from ED in [facility]. Assessed pt from head to toe. Pt is AAO x 4, cooperative, ARPITA, able to make needs known, bedbound, on RA at 97% O2Sat with no s/s of distress noted at this time nor c/o pain. VSS T 99.1 P 107 R 20 BP 115/64 Pain 2/10 Lung sounds diminished to all lobes. Abd distended, tender, with active bowel sounds heard in x 4 quadrants. Pt has LUQ urostomy in place draining yellow urine into drainage bag by gravity with no s/s of infection noted at this time. Pt has decreased upper extremity strength. BLE weak and unable to move. Pt has sacral area discoloration, pressure injury, and opening to L buttock. See wound assessment. Wound photos taken. Made pt comfortable, placed bed in lowest position, bed alarm on, call light within reach. MD notified of admission. Orders received. Will initiate and carry out POC.
[2019-08-19 16:00] VITALS: BP 127/74
--- NOTE | 2019-08-19 16:00 | NUR ---
CHARGE NURSE NOTE: was called 3 times for adm. orders. still awaiting call back. [facility] Nursing supervisor microfilm duplicating unit notified.
--- NOTE | 2019-08-19 16:15 | Consultation ---
DATE OF CONSULTATION: 08/19/2019 PULMONARY CONSULTATION CONSULTING PHYSICIAN: Sebastian Haddad MD. REASON FOR CONSULTATION: Pleural effusion. HISTORY OF PRESENT ILLNESS: This is a 48-year-old female, recently discharged. Patient presents once again to the emergency room from nursing home facility with x-ray showing pleural effusion. Patient recently admitted for the above and underwent thoracentesis with fairly negative results. Patient with history of JIG BORE TOOL MAKER shunt, fairly bedbound, nonambulatory, and nonverbal. Patient has had no cough. No congestion. No significant shortness of breath. PAST MEDICAL HISTORY: Reviewed. Patient with history of paraparesis, CVA, hypercholesterolemia, chronic muscle spasm, chronic pain, diabetes, hypertension, possible psychosis. MEDICATIONS: Reviewed. ALLERGIES: Reviewed. SOCIAL HISTORY: Nonsmoker and nondrinker. Essentially bedbound. REVIEW OF SYSTEMS: Unobtainable. PHYSICAL EXAMINATION: GENERAL: An ill-appearing female overall. VITAL SIGNS: Reviewed. Temperature 98.1, heart rate 118, blood pressure is 108/64, saturation 94% on room air, respiratory rate is 22. HEENT: Negative. NECK: Supple. No adenopathy. LUNGS: Moderate breath sounds. No rhonchi or wheezes. CARDIAC: S1, S2. Slightly tachycardic without murmurs, rubs, or gallops. ABDOMEN: Soft, nontender. EXTREMITIES: No edema. NEUROLOGIC: Very weak. Significant paraparesis and spasticity. LABORATORY DATA: Otherwise reviewed. CBC essentially negative. Chemistry is fairly negative. Chest x-ray with small pleural effusion. IMPRESSION: Recurrence of pleural effusion, not significant enough to tap, bed bound, hypertension, hypercholesterolemia. No significant hypoxemia. RECOMMENDATION: At present, we would recommend monitoring x-ray. No clear need for thoracentesis. We will follow up clinically. Recommend resuming residential medications and monitor clinically for further changes and interventions. Thoracentesis p.r.n. If recurrent and significant, we will consider PleurX catheter at that time. Sebastian Haddad M.D. DR: KAY JOB#: [id number] CC:
--- NOTE | 2019-08-19 16:45 | History and Physical Report ---
DATE OF ADMISSION: 08/19/2019 CHIEF COMPLAINT AND REASON FOR HOSPITALIZATION: The patient is admitted with pleuritic right chest pain, pleural effusion. HISTORY OF PRESENT ILLNESS: The patient is a 48-year-old lady with a history of spina bifida, Rashid rods, CVA, left hemiparesis, paraplegia, history of MANAGEMENT LIAISON shunt, diabetes, hypercholesterolemia, and hypertension. She was hospitalized here and discharged on 08/07/2019, had a right pleural effusion that was tapped and thought to be secondary to MANAGEMENT LIAISON shunt, clear fluid with no evidence of infection. She had COVID-19 testing negative on her prior admission. She is admitted now with recurrent right posterior and lateral chest pain and a recurrent right pleural effusion. PAST SURGICAL HISTORY: Prior surgeries include Rashid rods, urostomy left lower quadrant, MANAGEMENT LIAISON shunt. ALLERGIES: None known. MEDICATIONS: At the [facility] include Tylenol as needed, Artificial Tears, aspirin, atorvastatin baclofen, Cozaar, cranberry, ferrous sulfate, Flexeril, Flonase, hydromorphone, insulin glargine and sliding scale, lactobacillus, lactulose, loratadine, metformin, metoclopramide, metoprolol, multivitamins, omeprazole, oxiconazole cream, Pepcid, polyethylene glycol, ProStat, Risperdal, senna, tramadol, Tums, valproic acid, , vitamin B complex, vitamin C, Zoloft, and zolpidem. SYSTEM REVIEW: HEAD, EYES, EARS, NOSE, AND THROAT: Vision and hearing is good. ENDOCRINE: History of diabetes. No thyroid disease. PULMONARY: History of smoking in the past. Mild cough, nonproductive. There is apparently some COPD. CARDIAC: No definite angina or MO. She has had tachycardia in the form of CHF. GASTROINTESTINAL: History of gastroesophageal reflux and gastritis. GENITOURINARY: History of recurrent UTI and has urostomy at this time. NEUROLOGIC: History of spina bifida, CVA, and left-sided weakness. Rashid rods. PHYSICAL EXAMINATION: GENERAL: The patient is alert, seen in the emergency department, in no acute distress. VITAL SIGNS: Temperature 98.1, pulse 118, respirations 22, blood pressure 108/64. HEAD, EYES, EARS, NOSE, AND THROAT: Sclerae are nonicteric. Ocular motions intact in all directions. Oral mucosa moist. NECK: No adenopathy. LUNGS: Diminished breath sounds at the right base. No rales or rhonchi. HEART: Rhythm is regular and tachycardic. No murmur. ABDOMEN: Soft without organomegaly. There is a urostomy in the left lower quadrant. EXTREMITIES: Atrophic all four extremities with some contractures, especially in the left arm. There is left-sided weakness. She is paraplegic. NEUROLOGIC: She is alert and oriented. She has nystagmus. PERTINENT LABORATORY DATA: Showed white count of 8.6, hemoglobin of 13.7. Electrolytes normal. Creatinine 0.6, glucose 75. Troponin negative. Albumin 3.7. IMPRESSION: 1. Recurrent right pleural effusion. Etiology could be from the MANAGEMENT LIAISON shunt, but other etiologies need to be excluded. 2. Pleuritic chest pain secondary to above. 3. History of MANAGEMENT LIAISON shunt. 4. History of CVA. 5. History of spina bifida and paraplegia. 6. History of diabetes. PLAN: We will get Pulmonary consultation. Arrange repeat thoracentesis. Perhaps we need to get sclerosing agent chest tube. We will discuss with pulmonary direct response consultant. Eliseo Contreras M.D. DR: JENNIFER JOB#: [id number] CC:
[2019-08-19] MEDS ORDERED: Lactulose 20gm/30ml UDC ORAL PRN ×2 (17:00→17:45)
[2019-08-19] MEDS ORDERED: Flonase Nasal Inhaler 16gm NASAL PRN (17:00)
[2019-08-19] MEDS ORDERED: Cyclobenzaprine 10mg Tab ORAL PRN (17:00)
[2019-08-19] MEDS ORDERED: traMADol 50mg tab ORAL PRN (17:15)
[2019-08-19] MEDS ORDERED: Sennosides 8.6mg tab ORAL PRN (17:15)
[2019-08-19] MEDS ORDERED: Tums 500mg ORAL PRN (17:15)
[2019-08-19] MEDS ORDERED: Zolpidem 5mg tab ORAL PRN (17:15)
[2019-08-19] MEDS ORDERED: Dextrose 50% 25ml Syringe IV PRN (17:30)
[2019-08-19] MEDS: HYDROmorphone 4mg tab ORAL PRN (17:56)
[2019-08-19] MEDS: Ascorbic Acid 500mg tab ORAL SCH (17:56)
[2019-08-19] MEDS: metFORMIN 500mg tab ORAL SCH (17:56)
--- NOTE | 2019-08-19 19:30 | NUR ---
HAND-OFF: Report given to GIA Thompson. Endorsed POC and consent needed for planned thoracentesis tomorrow, 08/20/2019.
[2019-08-19 20:00] VITALS: BP 112/79
--- NOTE | 2019-08-19 20:02 | NUR ---
NURSE NOTES: Received patient in bed. Awake, AOx4, able to make needs known. On room air. Urostomy to drainage bag, draining yellow urine. Bed low and locked. Consent obtained for planned thoracentesis tomorrow.
[2019-08-19] MEDS: NovoLOG Insulin Flexpen SUBQ SCH (20:16)
[2019-08-19] MEDS ORDERED: Levemir Flexpen SUBQ SCH (21:00)
[2019-08-19] MEDS: Valproic Acid 250mg/5ml Liquid ORAL SCH (21:03)
[2019-08-19] MEDS: Heparin 5000 units/ml inj SUBQ SCH (21:04)
[2019-08-20] VITALS: BP 116/76
[2019-08-20 04:00] VITALS: BP 119/80
[2019-08-20] MEDS: Valproic Acid 250mg/5ml Liquid ORAL SCH ×2 (06:23→15:10)
[2019-08-20] MEDS: NovoLOG Insulin Flexpen SUBQ SCH ×3 (06:23→16:30)
[2019-08-20 06:45] LABS: BASOPHILS % (AUTO) 0.7 % (0.0-2.0); EOSINOPHILS % (AUTO) 1.1 % (0.0-3.0); HEMATOCRIT 40.5 % (37.0-47.0); HEMOGLOBIN 12.8 G/DL (12.0-16.0); LYMPHOCYTES % (AUTO) 27.3 % (20.0-45.0); MEAN CORPUSCULAR VOLUME 79 FL (80-99); MONOCYTES % (AUTO) 8.1 % (1.0-10.0); NEUTROPHILS % (AUTO) 62.8 % (45.0-75.0); PLATELET COUNT 349 K/UL (150-450); RED BLOOD COUNT 5.11 M/UL (4.20-5.40); RED CELL DISTRIBUTION WIDTH 19.8 % (11.6-14.8); WHITE BLOOD COUNT 10.5 K/UL (4.8-10.8)
[2019-08-20 07:06] LABS: ALANINE AMINOTRANSFERASE 9 U/L (12-78); ALBUMIN 3.2 G/DL (3.4-5.0); ALBUMIN/GLOBULIN RATIO 0.7 (1.0-2.7); ALKALINE PHOSPHATASE 84 U/L (46-116); ANION GAP 12 mmol/L (5-15); ASPARTATE AMINO TRANSFERASE 11 U/L (15-37); BILIRUBIN,TOTAL 0.2 MG/DL (0.2-1.0); BLOOD UREA NITROGEN 17 mg/dL (7-18); CALCIUM 8.8 MG/DL (8.5-10.1); CARBON DIOXIDE 23 MMOL/L (21-32); CHLORIDE 108 MMOL/L (98-107); CREATININE 0.6 MG/DL (0.55-1.30); POTASSIUM 4.4 MMOL/L (3.5-5.1); SODIUM 143 MMOL/L (136-145)
--- NOTE | 2019-08-20 07:09 | NUR ---
HAND-OFF: Report given to GIA Briones.
--- NOTE | 2019-08-20 07:57 | NUR ---
NURSE NOTES: Report received from GIA Márquez. Pt awake in bed, no SOB, no c/o any discomfort at this time, alert and oriented x 4, bed in lowest position with breaks engaged and alarm on, IV line on JUDE , will continue to monitor and proceed with plan of care, call light within reach.
[2019-08-20 08:00] VITALS: BP 101/56
--- NOTE | 2019-08-20 08:16 | NUR ---
NURSE NOTES: Received a call from lab at around 7:30 am and reported BS of 40, checked patient immediately inside room, pt is awake, verbal and alert, no c/o any pain/discomfort/dizziness, gave pt 8 oz orange juice with sugar and re checked in 10 min, BS is 140, pt stable at this time, will continue to monitor.
[2019-08-20] MEDS ORDERED: Aspirin Baby 81mg ORAL SCH (09:00)
[2019-08-20] MEDS ORDERED: Sertraline 100mg tab ORAL SCH (09:00)
[2019-08-20] MEDS ORDERED: Miralax 17gm pkt ORAL SCH (09:00)
[2019-08-20] MEDS ORDERED: Vitamin B Complex Tab ORAL SCH (09:00)
[2019-08-20] MEDS ORDERED: Losartan 25mg tab ORAL SCH (09:00)
[2019-08-20] MEDS ORDERED: Lactobacillus-GG tablet ORAL SCH (09:00)
[2019-08-20] MEDS: metFORMIN 500mg tab ORAL SCH ×2 (09:20→17:06)
[2019-08-20] MEDS: Ascorbic Acid 500mg tab ORAL SCH ×2 (09:21→17:04)
[2019-08-20] MEDS: Heparin 5000 units/ml inj SUBQ SCH (09:22)
--- NOTE | 2019-08-20 10:23 | NUR ---
RD ASSESSMENT & RECOMMENDATIONS SEE CARE ACTIVITY FOR COMPLETE ASSESSMENT DAILY ESTIMATED NEEDS: Needs based on DM, wound 43.3kg 30-35 kcals/kg 1090-5042 total kcals 1.25-1.5 g protein/kg 54-65 g total protein 25-35ml/kcal mL/kg 6237-2150 total fluid mLs NUTRITION DIAGNOSIS: 1) Increased Kcal and protein needs r/t wound healing as evidenced by pt w/ sacral wound per photo, pending eval. CURRENT DIET:[facility] MED PO DIET RECOMMENDATIONS: Regular diet / monitor PO intake ADDITIONAL RECOMMENDATIONS: 1) Obtain accurate Ht and Wt as able 2) Glucerna BID in b/w meals 3) Wound healing: add RAMONA BID -> F/up w/ WC eval 4) Rec D5 while NPO 5) HgA1C for eval
--- NOTE | 2019-08-20 11:42 | Diagnostic Imaging Report ---
EXAM: ULTRASOUND Venous Duplex Scan Jer Leg CLINICAL HISTORY: Leg pain and edema. COMPARISON: None TECHNIQUE: Doppler examination include grayscale images obtained with and without compression, and color and spectral doppler analysis. FINDINGS: Study slightly limited due to contractures of the hips and knees. Doppler examination shows normal spontaneity, phasicity, compressibility in the bilateral lower extremities. There is no thrombus identified by grayscale. Normal color and spectral flow is identified. There is no evidence of valvular incompetency or insufficiency. IMPRESSION: NO EVIDENCE OF DVT TO THE EXTENT VISUALIZED
[2019-08-20 12:00] VITALS: BP 99/59
--- NOTE | 2019-08-20 12:14 | General Progress Note ---
Assessment/Plan Problem List: (1) ADJUSTER ELECTRICAL CONTACTS (ventriculoperitoneal) shunt status ICD Codes: Z98.2 - Presence of cerebrospinal fluid drainage device SNOMED: 13761407, 96321719, 244076545 (2) Diabetes ICD Codes: E11.9 - Type 2 diabetes mellitus without complications SNOMED: 90071719 (3) Paraplegia ICD Codes: G82.20 - Paraplegia, unspecified SNOMED: 27816623 (4) Pleural effusion ICD Codes: J90 - Pleural effusion, not elsewhere classified SNOMED: 72844362 (5) CVA, old, hemiparesis ICD Codes: I69.359 - Hemiplegia and hemiparesis following cerebral infarction affecting unspecified side SNOMED: 721273488 Assessment/Plan: d5w as npo low glu, imaging and possible thoracentesis Subjective Constitutional: Reports: weakness HEENT: Reports: no symptoms Cardiovascular: Reports: no symptoms Respiratory: Reports: no symptoms Gastrointestinal/Abdominal: Reports: no symptoms Genitourinary: Reports: incontinence Neurologic/Psychiatric: Reports: pre-existing deficit Endocrine: Reports: other - hypoglycemia Allergies: Coded Allergies: CODEINE (Unverified Allergy, Unknown, 08/03/19) IODINE (Verified Allergy, Unknown, 01/15/11) LATEX (Verified Allergy, Unknown, 08/06/08) PENICILLINS (Verified Allergy, Unknown, 08/06/08) Uncoded Allergies: LACTOSE INTOLERANT (Allergy, Unknown, 06/10/17) POLLEN (Allergy, Unknown, 06/10/17) Subjective mild r chest pain Objective Last 24 Hour Vital Signs Date Time Temp Pulse Resp B/P (MAP) Pulse Ox O2 Delivery O2 Flow Rate FiO2 08/20/19 09:20 101/56 08/20/19 09:20 99 101/56 08/20/19 09:00 Room Air 08/20/19 08:00 98.1 99 20 101/56 (71) 96 08/20/19 04:00 98.4 99 17 119/80 (93) 94 08/20/19 00:00 98.6 102 17 116/76 (89) 94 08/19/19 22:14 Room Air 08/19/19 21:03 101 112/79 08/19/19 20:42 98.5 08/19/19 20:00 98.5 101 18 112/79 (90) 94 08/19/19 18:26 97.9 08/19/19 16:00 97.9 113 18 127/74 (91) 94 08/19/19 15:07 Room Air 08/19/19 13:40 Room Air 08/19/19 12:27 98.0 108 17 125/74 95 Room Air Intake and Output 08/19/19 08/20/19 19:00 07:00 Intake Total 460 ml 480 ml Output Total 1650 ml 450 ml Balance -1190 ml 30 ml Intake Oral 460 ml 480 ml Output Urine Total 650 ml 450 ml Other 1000 ml # Voids 1 Laboratory Tests 08/20/19 05:23: White Blood Count 10.5, Red Blood Count 5.11, Hemoglobin 12.8, Hematocrit 40.5, Mean Corpuscular Volume 79L, Mean Corpuscular Hemoglobin 25.1L, Mean Corpuscular Hemoglobin Concent 31.6L, Red Cell Distribution Width 19.8H, Platelet Count 349, Mean Platelet Volume 5.3L, Neutrophils (%) (Auto) 62.8, Lymphocytes (%) (Auto) 27.3, Monocytes (%) (Auto) 8.1, Eosinophils (%) (Auto) 1.1, Basophils (%) (Auto) 0.7, Prothrombin Time 10.7, Prothromb Time International Ratio 1.0, Activated Partial Thromboplast Time 27, Sodium Level 143, Potassium Level 4.4, Chloride Level 108H, Carbon Dioxide Level 23, Anion Gap 12, Blood Urea Nitrogen 17, Creatinine 0.6, Estimat Glomerular Filtration Rate > 60, Glucose Level 40L, Calcium Level 8.8, Total Bilirubin 0.2, Aspartate Amino Transf (AST/SGOT) 11L, Alanine Aminotransferase (ALT/SGPT) 9L, Alkaline Phosphatase 84, Total Protein 7.7, Albumin 3.2L, Globulin 4.5, Albumin/Globulin Ratio 0.7L Height (Feet): 5 Height (Inches): 6.00 Weight (Pounds): 89 General Appearance: no apparent distress, alert EENT: normal ENT inspection Cardiovascular: regular rhythm Respiratory/Chest: decreased breath sounds Abdomen: non tender Edema: no edema noted Arm (L), no edema noted Arm (R), no edema noted Leg (L), no edema noted Leg (R), no edema noted Pedal (L), no edema noted Pedal (R), no edema noted Generalized Neurologic: other - paraplegia, L hemiplegia Eliseo Contreras MD Aug 20, 2019 12:14
[2019-08-20] MEDS: HYDROmorphone 4mg tab ORAL PRN ×2 (12:46→20:10)
--- NOTE | 2019-08-20 13:22 | Pre-Procedure Note/Attestation ---
Pre-Procedure Note/Attestation Complete Prior to Procedure Planned Procedure: right Procedure Narrative: thoracentesis Indications for Procedure Pre-Operative Diagnosis: pleural effusion Attestation I attest that I discussed the nature of the procedure; its benefits; risks and complications; and alternatives (and the risks and benefits of such alternatives ), prior to the procedure, with the patient (or the patient's legal sales representative graphic art). I attest that, if there was a reasonable possibility of needing a blood transfusion, the patient (or the patient's legal sales representative graphic art) was given the [facility] standardized written summary, pursuant to the [place] Blood Safety Act ([place] Health and Safety Code # 1645, as amended). I attest that I re-evaluated the patient just prior to the surgery and that there has been no change in the patient's H&P, except as documented below: Lamonte Austin MD Aug 20, 2019 13:22
--- NOTE | 2019-08-20 13:22 | NUR ---
NURSE NOTES: Patient went to have Ultrasound Guided Thoracentesis at 1315 in stable condition.
--- NOTE | 2019-08-20 13:23 | NUR ---
NURSE NOTES: Rn spoke to Brianne who said 300cc of fluid was removed from thoracentesis.
--- NOTE | 2019-08-20 14:32 | Consultation ---
History of Present Illness General Date patient seen: Aug 20, 2019 Reason for Hospitalization: Dyspnea/Respdistress Present Illness HPI This is a 48-year-old female multiple medical comorbidities [employer] shunt who is a shelter resident bedbound recently discharged after thoracentesis pleural effusion respiratory insufficiency admitted for further care and management similar symptoms. Labs noted imaging noted surgery called to evaluate and assist with care and plan. Patient seen, patient evaluate, chart reviewed Allergies: Coded Allergies: CODEINE (Unverified Allergy, Unknown, 08/03/19) IODINE (Verified Allergy, Unknown, 01/15/11) LATEX (Verified Allergy, Unknown, 08/06/08) PENICILLINS (Verified Allergy, Unknown, 08/06/08) Uncoded Allergies: LACTOSE INTOLERANT (Allergy, Unknown, 06/10/17) POLLEN (Allergy, Unknown, 06/10/17) COVID-19 Screening Contact w/high risk pt: No Recent Travel to affected area: No Experienced COVID-19 symptoms?: No Medication History Scheduled Amino Acids/Protein Hydrolys (Pro-Stat Liquid), 30 ML ORAL DAILY, (Reported) Ascorbic Acid* (Ascorbic Acid*), 500 MG ORAL TWICE A DAY, (Reported) Aspirin* (Aspirin*), 81 MG ORAL DAILY, (Reported) Atorvastatin Calcium* (Lipitor*), 10 MG ORAL BEDTIME, (Reported) Baclofen (Baclofen), 20 MG ORAL THREE TIMES A DAY, (Reported) Calcium Carbonate (Calcium Carbonate), 1,000 MG PO Q6HR, (Reported) Dextran 70/Hypromellose (Artificial Tears Eye Drops*), 1 DROP BOTH EYES TID, ( Reported) Famotidine (Pepcid), 40 MG PO ACBREAKFAST, (Reported) Ferrous Sulfate (Ferrous Sulfate), 325 MG ORAL TWICE A DAY, (Reported) Insulin Glargine (Lantus), 12 UNITS SUBQ BEDTIME, (Reported) Lactobacillus Acidophilus (Acidophilus), 1 EACH PO DAILY, (Reported) Loratadine (Loratadine), 10 MG PO DAILY, (Reported) Losartan Potassium* (Cozaar*), 25 MG ORAL DAILY, (Reported) Metformin Hcl* (Metformin Hcl*), 1,000 MG ORAL BID, (Reported) Metoprolol Tartrate* (Metoprolol Tartrate*), 50 MG ORAL DAILY, (Reported) Multivitamin With Minerals (Multivitamins With Minerals*), 1 TAB ORAL DAILY, ( Reported) Omeprazole (Omeprazole), 40 MG ORAL DAILY, (Reported) Oxiconazole Nitrate (Oxistat), 30 GM TP TWICE A DAY, (Reported) Polyethylene Glycol 3350* (Polyethylene Glycol 3350*), 17 GM ORAL DAILY, ( Reported) Risperidone* (Risperdal*), 0.5 MG ORAL QHS, (Reported) Sennosides (Senna), 8.6 MG PO BID, (Reported) Sennosides* (Senno*), 8.6 MG ORAL TWICE A DAY, (Reported) Sertraline Hcl* (Zoloft*), 100 MG ORAL DAILY, (Reported) Trimethoprim/Sulfamethoxazole 160/800* (Bactrim Ds Tablet*), 1 TAB ORAL TWICE A DAY, (Reported) Valproic Acid (Valproic Acid), 250 MG PO Q8HR, (Reported) Vitamin B Complex (Vitamin B Complex), 1 CAP ORAL DAILY, (Reported) Scheduled PRN Acetaminophen* (Acetaminophen 325MG Tablet*), 650 MG ORAL Q6H PRN for Mild Pain/ Temp > 100.5, (Reported) Cyclobenzaprine Hcl* (Flexeril*), 10 MG ORAL Q6HR PRN for Muscle Spasm, ( Reported) Diclofenac Sodium (Voltaren), 2 GM TP Q6HR PRN for For Pain, (Reported) Hydromorphone HCl (Dilaudid), 4 MG ORAL Q6HR PRN for For Pain, (Reported) Lactulose (Lactulose*), 30 ML ORAL for Constipation, (Reported) Metoclopramide Hcl* (Metoclopramide Hcl*), 10 MG ORAL EVERY 6 HOURS PRN for Nausea & Vomiting, (Reported) Tramadol Hcl* (Ultram*), 50 MG ORAL Q12HR PRN for For Pain, (Reported) Trimethoprim/Sulfamethoxazole 160/800* (Bactrim Ds Tablet*), 1 TAB ORAL TWICE A DAY PRN for UTI, (Reported) Miscellaneous Medications Cranberry Fruit Concentrate (Cranberry), 450 MG PO, (Reported) Fluticasone Propionate (Flonase Allergy Relief), 9.9 ML NS, (Reported) Guar Gum (Nutrisource Fiber), 1 EACH PO, (Reported) Insulin Aspart* (Novolog*), Unknown Dose SUBQ, (Reported) Patient History Limited by: medical condition History Provided By: Medical Record, PMD Healthcare decision maker Resuscitation status Advanced Directive on File Past Medical/Surgical History Past Medical/Surgical History: (1) CVA, old, hemiparesis (2) Paraplegia (3) Diabetes (4) Pleural effusion Review of Systems Review of Symptoms General ROS: no weight loss or fever Psychological ROS: no depression or mood changes, no memory loss Ophthalmic ROS: no visual changes or eye irritation ENT ROS: no nasal congestion, hearing loss, dizziness Allergy and Immunology ROS: no allergic symptoms or urticaria Hematological and Lymphatic ROS: no swollen glands, unusual bleeding or bruising Endocrine ROS: no polyuria, polydipsia, weight changes, temperature intolerance Respiratory ROS: no cough, shortness of breath, or wheezing Cardiovascular ROS: no chest pain or dyspnea on exertion Gastrointestinal ROS: denies abdominal pain, bright red blood in stool. Musculoskeletal ROS: no myalgias or arthralgias Neurological ROS: no TIA or stroke symptoms Dermatological ROS: no new or changing skin lesions, rashes or pruritis Physical Exam Physical Exam General appearance: no distress, appears stated age Head: Normocephalic, without obvious abnormality, atraumatic Eyes: conjunctivae/corneas clear. PERRL, EOM's intact. Fundi benign Throat: Lips, mucosa, and tongue normal. Teeth and gums normal Neck: supple, symmetrical, trachea midline, no adenopathy, thyroid: not enlarged, symmetric, no tenderness/mass/nodules, no carotid bruit and no JVD Lungs: clear to auscultation bilaterally Heart: regular rate and rhythm, S1, S2 normal, no murmur, click, rub or gallop Abdomen: soft, non-tender. Bowel sounds normal. No masses, no organomegaly Extremities: extremities normal, atraumatic, no cyanosis or edema Pulses: 2+ and symmetric Skin: Skin see below Neurologic: Grossly normal Last 24 Hour Vital Signs Date Time Temp Pulse Resp B/P (MAP) Pulse Ox O2 Delivery O2 Flow Rate FiO2 08/20/19 13:20 98.1 08/20/19 12:00 97.7 88 20 99/59 (72) 96 08/20/19 09:20 101/56 08/20/19 09:20 99 101/56 08/20/19 09:00 Room Air 08/20/19 08:00 98.1 99 20 101/56 (71) 96 08/20/19 04:00 98.4 99 17 119/80 (93) 94 08/20/19 00:00 98.6 102 17 116/76 (89) 94 08/19/19 22:14 Room Air 08/19/19 21:03 101 112/79 08/19/19 20:42 98.5 08/19/19 20:00 98.5 101 18 112/79 (90) 94 08/19/19 16:00 97.9 113 18 127/74 (91) 94 08/19/19 15:07 Room Air Intake and Output 08/19/19 08/20/19 19:00 07:00 Intake Total 460 ml 480 ml Output Total 1650 ml 450 ml Balance -1190 ml 30 ml Intake Oral 460 ml 480 ml Output Urine Total 650 ml 450 ml Other 1000 ml # Voids 1 Laboratory Tests Test 08/20/19 05:23 White Blood Count 10.5 K/UL (4.8-10.8) Red Blood Count 5.11 M/UL (4.20-5.40) Hemoglobin 12.8 G/DL (12.0-16.0) Hematocrit 40.5 % (37.0-47.0) Mean Corpuscular Volume 79 FL (80-99) L Mean Corpuscular Hemoglobin 25.1 PG (27.0-31.0) L Mean Corpuscular Hemoglobin Concent 31.6 G/DL (32.0-36.0) L Red Cell Distribution Width 19.8 % (11.6-14.8) H Platelet Count 349 K/UL (150-450) Mean Platelet Volume 5.3 FL (6.5-10.1) L Neutrophils (%) (Auto) 62.8 % (45.0-75.0) Lymphocytes (%) (Auto) 27.3 % (20.0-45.0) Monocytes (%) (Auto) 8.1 % (1.0-10.0) Eosinophils (%) (Auto) 1.1 % (0.0-3.0) Basophils (%) (Auto) 0.7 % (0.0-2.0) Prothrombin Time 10.7 SEC (9.30-11.50) Prothromb Time International Ratio 1.0 (0.9-1.1) Activated Partial Thromboplast Time 27 SEC (23-33) Sodium Level 143 MMOL/L (136-145) Potassium Level 4.4 MMOL/L (3.5-5.1) Chloride Level 108 MMOL/L (98-107) H Carbon Dioxide Level 23 MMOL/L (21-32) Anion Gap 12 mmol/L (5-15) Blood Urea Nitrogen 17 mg/dL (7-18) Creatinine 0.6 MG/DL (0.55-1.30) Estimat Glomerular Filtration Rate > 60 mL/min (>60) Glucose Level 40 MG/DL (74-106) L Calcium Level 8.8 MG/DL (8.5-10.1) Total Bilirubin 0.2 MG/DL (0.2-1.0) Aspartate Amino Transf (AST/SGOT) 11 U/L (15-37) L Alanine Aminotransferase (ALT/SGPT) 9 U/L (12-78) L Alkaline Phosphatase 84 U/L (46-116) Total Protein 7.7 G/DL (6.4-8.2) Albumin 3.2 G/DL (3.4-5.0) L Globulin 4.5 g/dL Albumin/Globulin Ratio 0.7 (1.0-2.7) L Height (Feet): 5 Height (Inches): 6.00 Weight (Pounds): 89 Medications Current Medications Medications (Trade) Dose Ordered Sig/Jeniffer Route PRN Reason Start Time Stop Time Status Last Admin Dose Admin Artificial Tears (Akwa-Tears) 2 drop TWICE A DAY BOTH EYES 08/19/19 20:00 09/18/19 19:59 08/20/19 09:29 Ascorbic Acid (Vitamin C) 500 mg TWICE A DAY ORAL 08/19/19 18:00 09/18/19 17:59 08/20/19 09:21 Aspirin (ASA) 81 mg DAILY ORAL 08/20/19 09:00 10/04/19 08:59 08/20/19 09:20 Atorvastatin Calcium (Lipitor) 10 mg BEDTIME ORAL 08/19/19 21:00 11/17/19 20:59 08/19/19 21:03 Baclofen (Lioresal) 20 mg THREE TIMES A DAY ORAL 08/19/19 18:00 09/18/19 17:59 08/20/19 09:19 Calcium Carbonate (Tums) 1,000 mg Q4H PRN ORAL acid reflux 08/19/19 17:15 11/17/19 17:14 Cyclobenzaprine HCl (Flexeril) 10 mg Q6H PRN ORAL Muscle Spasm 08/19/19 17:00 09/18/19 16:59 Dextrose 1,000 ml @ 40 mls/hr Q24H IV 08/20/19 12:15 09/19/19 12:14 08/20/19 12:15 Dextrose (Dextrose 50%) 25 ml Q30M PRN IV Hypoglycemia 08/19/19 17:30 09/18/19 17:29 Dextrose (Dextrose 50%) 50 ml Q30M PRN IV hypoglycemia 08/19/19 17:30 11/17/19 17:29 Famotidine (Pepcid) 40 mg DAILY ORAL 08/20/19 09:00 11/18/19 08:59 08/20/19 09:19 Ferrous Sulfate (Feosol) 325 mg TWICE A DAY ORAL 08/19/19 18:00 11/17/19 17:59 08/20/19 09:20 Fluticasone Propionate (Flonase) 2 spray DAILYPRN PRN NASAL allergies 08/19/19 17:00 09/18/19 16:59 Heparin Sodium (Porcine) (Heparin 5000 units/ml) 5,000 units EVERY 12 HOURS SUBQ 08/19/19 21:00 10/03/19 20:59 08/20/19 09:22 Hydromorphone HCl (Dilaudid) 4 mg Q6H PRN ORAL Severe Pain (Pain Scale 7-10) 08/19/19 17:00 08/26/19 16:59 08/20/19 12:46 Insulin Aspart (NovoLOG) BEFORE MEALS AND HS SUBQ 08/19/19 21:00 11/17/19 20:59 Insulin Detemir (Levemir) 12 units BEDTIME SUBQ 08/19/19 21:00 11/17/19 20:59 08/19/19 21:05 Lactobacillus Acidophilus (Culturelle) 1 tab DAILY ORAL 08/20/19 09:00 11/18/19 08:59 08/20/19 09:21 Lactulose (Cephulac) 20 gm DAILYPRN PRN ORAL Constipation 08/19/19 17:45 09/18/19 16:59 Loratadine (Claritin 10mg) 10 mg DAILY ORAL 08/20/19 09:00 09/19/19 08:59 08/20/19 09:19 Losartan Potassium (Cozaar) 25 mg DAILY ORAL 08/20/19 09:00 09/19/19 08:59 08/20/19 09:20 Metformin HCl (Glucophage) 1,000 mg BID ORAL 08/19/19 18:00 09/18/19 17:59 08/20/19 09:20 Metoclopramide HCl (Reglan) 10 mg Q6H PRN ORAL Nausea & Vomiting 08/19/19 17:00 09/18/19 16:59 Metoprolol Tartrate (Lopressor) 25 mg Q12HR ORAL 08/19/19 21:00 11/17/19 20:59 08/20/19 09:20 Multivitamins (Multivitamins) 1 tab DAILY ORAL 08/20/19 09:00 09/19/19 08:59 08/20/19 09:20 Polyethylene Glycol (Miralax) 17 gm DAILY ORAL 08/20/19 09:00 09/19/19 08:59 08/20/19 09:21 Risperidone (RisperDAL) 0.5 mg QHS ORAL 08/19/19 21:00 10/03/19 20:59 08/19/19 21:03 Sennosides (Senokot) 8.6 mg BIDPRN PRN ORAL Constipation 08/19/19 17:15 09/18/19 17:14 Sertraline HCl (Zoloft) 100 mg DAILY ORAL 08/20/19 09:00 09/19/19 08:59 08/20/19 09:20 Tramadol HCl (Ultram) 50 mg BIDPRN PRN ORAL PAIN 1-6 08/19/19 17:15 08/26/19 17:14 Valproic Acid (Depakene) 250 mg Q8HR ORAL 08/19/19 22:00 09/18/19 21:59 08/20/19 06:23 Vitamin B Complex (Vitamin B Complex) 1 tab DAILY ORAL 08/20/19 09:00 11/18/19 08:59 08/20/19 09:19 Zolpidem Tartrate (Ambien) 5 mg HSPRN PRN ORAL INSOMNIA 08/19/19 17:15 08/26/19 17:14 Assessment/Plan Problem List: (1) CVA, old, hemiparesis ICD Codes: I69.359 - Hemiplegia and hemiparesis following cerebral infarction affecting unspecified side SNOMED: 016772208 (2) Paraplegia Assessment & Plan: Study slightly limited due to contractures of the hips and knees. Doppler examination shows normal spontaneity, phasicity, compressibility in the bilateral lower extremities. There is no thrombus identified by grayscale. Normal color and spectral flow is identified. There is no evidence of valvular incompetency or insufficiency. ICD Codes: G82.20 - Paraplegia, unspecified SNOMED: 47073089 (3) Diabetes ICD Codes: E11.9 - Type 2 diabetes mellitus without complications SNOMED: 07499103 (4) Pleural effusion Assessment & Plan: There is evidence of slight reaccumulation of pleural fluid on the right. Ventriculoperitoneal and ventriculopleural shunt tubing again projects over the right chest. The left lung and pleural space are clear. Spinal fusion hardware is again noted. Impression: Evidence of reaccumulating right pleural fluid, since prior study 08/06/2019 ICD Codes: J90 - Pleural effusion, not elsewhere classified SNOMED: 76853874 (5) Decubitus skin ulcer Assessment & Plan: Patient identified to have decubitus skin ulcer admission. Paraplegic bedbound requiring prevention and extensive care. Air mattress ordered. Care plan initiated. ICD Codes: L89.90 - Pressure ulcer of unspecified site, unspecified stage SNOMED: 143350418 (6) Malnutrition Assessment & Plan: DAILY ESTIMATED NEEDS: Needs based on DM, wound 43.3kg 30-35 kcals/kg 8164-0637 total kcals 1.25-1.5 g protein/kg 54-65 g total protein 25-35ml/kcal mL/kg 0915-5186 total fluid mLs NUTRITION DIAGNOSIS: 1) Increased Kcal and protein needs r/t wound healing as evidenced by pt w/ sacral wound per photo, pending eval. CURRENT DIET:[facility] PO DIET RECOMMENDATIONS: Regular diet / monitor PO intake ADDITIONAL RECOMMENDATIONS: 1) Obtain accurate Ht and Wt as able 2) Glucerna BID in b/w meals 3) Wound healing: add RAMONA BID -> F/up w/ WC eval 4) Rec D5 while NPO 5) HgA1C for eval ICD Codes: E46 - Unspecified protein-calorie malnutrition SNOMED: 20514074 Gregorio Abreu Aug 20, 2019 14:32
--- NOTE | 2019-08-20 14:52 | Brief Operative Note ---
Immediate Post Operative Note Operative Note Pre-op Diagnosis: pleural effusion Procedure: R thoracentesis Post-op Diagnosis: same as pre-op Surgeon: Deandre Lynch Anesthesia: local Specimen: yes - 50 ml fluid sent to lab Complications: none Fluids: none Implant(s) used?: No Lamonte Lynch MD Aug 20, 2019 14:52
--- NOTE | 2019-08-20 14:58 | Diagnostic Imaging Report ---
Indication: Postthoracentesis Technique: One view of the chest Comparison: 08/19/2019 Findings: Interval resolution of previously demonstrated right pleural effusion. No pneumothorax. Ventriculopleural and ventriculoperitoneal shunt tubing, spinal fusion hardware again noted. Lungs and pleural spaces are currently clear. The heart size is normal. Impression: Resolved right pleural effusion, status post thoracentesis. No radiographically evident complication
--- NOTE | 2019-08-20 15:06 | NUR ---
CASE MANAGEMENT:INITIAL REVIEW 48 YR OLD FEMALE BIBA FROM [facility] CC;DYSPNEA. RESPIRATORY DISTRESS. SI;PLEURAL EFFUSION 98.1 120 22 108/64 94% ON RA LDH 317 CXR ~ Evidence of reaccumulating right pleural fluid, since prior study 08/06/2019 IS;IVF NS BOLUS DILAUDID IV ONCE ADMITTED TO MED SURG MED SURG STATUS DCP;FROM [facility]
--- NOTE | 2019-08-20 15:14 | NUR ---
RADIOLOGY DEPT., LATE ENTRY, CHEST X-RAY POST THORA HAS BEEN COMPLETED.-PMEGHAN
--- NOTE | 2019-08-20 15:17 | Diagnostic Imaging Report ---
Indications: Pleural effusion Technique: Ultrasound used to localize optimal puncture site. Sterile prepping and draping right chest. Local anesthesia with 1% lidocaine. Under real-time ultrasound guidance, puncture pleural space using thoracentesis needle. Stylet removed. Catheter placed to vacuum bottle suction. Total 300 milliliters of minimally cloudy faintly yellow fluid aspirated. Patient tolerated procedure well, without immediate complication. Findings: Followup sonography demonstrates complete resolution of pleural fluid. Impression: Successful ultrasound-guided thoracentesis, yielding 300 milliliters of fluid
[2019-08-20 16:00] VITALS: BP 101/57
--- NOTE | 2019-08-20 17:11 | NUR ---
*-*DISCHARGE PLANNING*-* PATIENT HAS BEEN REFERRED BACK TO: [facility] P: [phone] F: [phone]
--- NOTE | 2019-08-20 17:15 | NUR ---
NURSE NOTES: RN spoke to Brianne FU and let her know about discharge order from Dr. Contreras and told her that Dr. Contreras wants to discharge the patient today.
--- NOTE | 2019-08-20 17:18 | NUR ---
*-*DISCHARGE PLANNING*-* PATIENT HAS BEEN ACCEPTED AND WILL BE DISCHARGED BACK TO: [facility] P: [phone] FOR NURSE TO NURSE REPORT ROOM# 106.A SKILLED S/ [facility], WILL ACCEPT PATIENT BACK UPON DISCHARGE.
--- NOTE | 2019-08-20 17:21 | NUR ---
*-*DISCHARGE PLANNING*-* PATIENT HAS BEEN ACCEPTED AND WILL BE DISCHARGED BACK TO: [facility] P: [phone] FOR NURSE TO NURSE REPORT ROOM# 106.A SKILLED [facility] SET FOR WILL CALL S/W KATI.
--- NOTE | 2019-08-20 17:39 | NUR ---
NURSE NOTES: RN was told from CM that patient was accepted to [facility], received discharge order from Dr. Contreras.
--- NOTE | 2019-08-20 17:49 | Pulmonology Progress Note ---
Subjective Allergies: Coded Allergies: CODEINE (Unverified Allergy, Unknown, 08/03/19) IODINE (Verified Allergy, Unknown, 01/15/11) LATEX (Verified Allergy, Unknown, 08/06/08) PENICILLINS (Verified Allergy, Unknown, 08/06/08) Uncoded Allergies: LACTOSE INTOLERANT (Allergy, Unknown, 06/10/17) POLLEN (Allergy, Unknown, 06/10/17) Subjective s/p tap Objective Last 24 Hour Vital Signs Date Time Temp Pulse Resp B/P (MAP) Pulse Ox O2 Delivery O2 Flow Rate FiO2 08/20/19 16:00 98.1 96 20 101/57 (72) 99 08/20/19 13:20 98.1 08/20/19 12:00 97.7 88 20 99/59 (72) 96 08/20/19 09:20 101/56 08/20/19 09:20 99 101/56 08/20/19 09:00 Room Air 08/20/19 08:00 98.1 99 20 101/56 (71) 96 08/20/19 04:00 98.4 99 17 119/80 (93) 94 08/20/19 00:00 98.6 102 17 116/76 (89) 94 08/19/19 22:14 Room Air 08/19/19 21:03 101 112/79 08/19/19 20:42 98.5 08/19/19 20:00 98.5 101 18 112/79 (90) 94 Intake and Output 08/19/19 08/20/19 19:00 07:00 Intake Total 460 ml 480 ml Output Total 1650 ml 450 ml Balance -1190 ml 30 ml Intake Oral 460 ml 480 ml Output Urine Total 650 ml 450 ml Other 1000 ml # Voids 1 Objective WDWN NAD reduced LOC clear breath sounds bilaterally without rhonchi or wheeze [id number] without MRG NABS nontender no HSM no CCE nonfocal paraparesis Microbiology Date/Time Source Procedure Growth Status 08/19/19 13:20 Rectum Received Laboratory Tests 08/20/19 05:23: White Blood Count 10.5, Red Blood Count 5.11, Hemoglobin 12.8, Hematocrit 40.5, Mean Corpuscular Volume 79L, Mean Corpuscular Hemoglobin 25.1L, Mean Corpuscular Hemoglobin Concent 31.6L, Red Cell Distribution Width 19.8H, Platelet Count 349, Mean Platelet Volume 5.3L, Neutrophils (%) (Auto) 62.8, Lymphocytes (%) (Auto) 27.3, Monocytes (%) (Auto) 8.1, Eosinophils (%) (Auto) 1.1, Basophils (%) (Auto) 0.7, Prothrombin Time 10.7, Prothromb Time International Ratio 1.0, Activated Partial Thromboplast Time 27, Sodium Level 143, Potassium Level 4.4, Chloride Level 108H, Carbon Dioxide Level 23, Anion Gap 12, Blood Urea Nitrogen 17, Creatinine 0.6, Estimat Glomerular Filtration Rate > 60, Glucose Level 40L, Calcium Level 8.8, Total Bilirubin 0.2, Aspartate Amino Transf (AST/SGOT) 11L, Alanine Aminotransferase (ALT/SGPT) 9L, Alkaline Phosphatase 84, Total Protein 7.7, Albumin 3.2L, Globulin 4.5, Albumin/Globulin Ratio 0.7L 08/20/19 13:33: Body Fluid Source [Pending], Body Fluid Volume [Pending], Body Fluid Appearance [Pending], Body Fluid RBC [Pending], Body Fluid Total Nucleated Cells [Pending] , Body Fluid Polynuclear WBCs (%) [Pending], Body Fluid Mononuclear WBCs (%) [ Pending], Body Fluid Mesothelial Cells (%) [Pending], Body Fluid Lactate Dehydrogenase [Pending] Current Medications Medications (Trade) Dose Ordered Sig/Jeniffer Route PRN Reason Start Time Stop Time Status Last Admin Dose Admin Artificial Tears (Akwa-Tears) 2 drop TWICE A DAY BOTH EYES 08/19/19 20:00 09/18/19 19:59 08/20/19 17:05 Ascorbic Acid (Vitamin C) 500 mg TWICE A DAY ORAL 08/19/19 18:00 09/18/19 17:59 08/20/19 17:04 Aspirin (ASA) 81 mg DAILY ORAL 08/20/19 09:00 10/04/19 08:59 08/20/19 09:20 Atorvastatin Calcium (Lipitor) 10 mg BEDTIME ORAL 08/19/19 21:00 11/17/19 20:59 08/19/19 21:03 Baclofen (Lioresal) 20 mg THREE TIMES A DAY ORAL 08/19/19 18:00 09/18/19 17:59 08/20/19 17:18 Calcium Carbonate (Tums) 1,000 mg Q4H PRN ORAL acid reflux 08/19/19 17:15 11/17/19 17:14 Cyclobenzaprine HCl (Flexeril) 10 mg Q6H PRN ORAL Muscle Spasm 08/19/19 17:00 09/18/19 16:59 Dextrose 1,000 ml @ 40 mls/hr Q24H IV 08/20/19 12:15 09/19/19 12:14 08/20/19 12:15 Dextrose (Dextrose 50%) 25 ml Q30M PRN IV Hypoglycemia 08/19/19 17:30 09/18/19 17:29 Dextrose (Dextrose 50%) 50 ml Q30M PRN IV hypoglycemia 08/19/19 17:30 11/17/19 17:29 Famotidine (Pepcid) 40 mg DAILY ORAL 08/20/19 09:00 11/18/19 08:59 08/20/19 09:19 Ferrous Sulfate (Feosol) 325 mg TWICE A DAY ORAL 08/19/19 18:00 11/17/19 17:59 08/20/19 17:04 Fluticasone Propionate (Flonase) 2 spray DAILYPRN PRN NASAL allergies 08/19/19 17:00 09/18/19 16:59 Heparin Sodium (Porcine) (Heparin 5000 units/ml) 5,000 units EVERY 12 HOURS SUBQ 08/19/19 21:00 10/03/19 20:59 08/20/19 09:22 Hydromorphone HCl (Dilaudid) 4 mg Q6H PRN ORAL Severe Pain (Pain Scale 7-10) 08/19/19 17:00 08/26/19 16:59 08/20/19 12:46 Insulin Aspart (NovoLOG) BEFORE MEALS AND HS SUBQ 08/19/19 21:00 11/17/19 20:59 Insulin Detemir (Levemir) 12 units BEDTIME SUBQ 08/19/19 21:00 11/17/19 20:59 08/19/19 21:05 Lactobacillus Acidophilus (Culturelle) 1 tab DAILY ORAL 08/20/19 09:00 11/18/19 08:59 08/20/19 09:21 Lactulose (Cephulac) 20 gm DAILYPRN PRN ORAL Constipation 08/19/19 17:45 09/18/19 16:59 Loratadine (Claritin 10mg) 10 mg DAILY ORAL 08/20/19 09:00 09/19/19 08:59 08/20/19 09:19 Losartan Potassium (Cozaar) 25 mg DAILY ORAL 08/20/19 09:00 09/19/19 08:59 08/20/19 09:20 Metformin HCl (Glucophage) 1,000 mg BID ORAL 08/19/19 18:00 09/18/19 17:59 08/20/19 09:20 Metoclopramide HCl (Reglan) 10 mg Q6H PRN ORAL Nausea & Vomiting 08/19/19 17:00 09/18/19 16:59 Metoprolol Tartrate (Lopressor) 25 mg Q12HR ORAL 08/19/19 21:00 11/17/19 20:59 08/20/19 09:20 Multivitamins (Multivitamins) 1 tab DAILY ORAL 08/20/19 09:00 09/19/19 08:59 08/20/19 09:20 Polyethylene Glycol (Miralax) 17 gm DAILY ORAL 08/20/19 09:00 09/19/19 08:59 08/20/19 09:21 Risperidone (RisperDAL) 0.5 mg QHS ORAL 08/19/19 21:00 10/03/19 20:59 08/19/19 21:03 Sennosides (Senokot) 8.6 mg BIDPRN PRN ORAL Constipation 08/19/19 17:15 09/18/19 17:14 Sertraline HCl (Zoloft) 100 mg DAILY ORAL 08/20/19 09:00 09/19/19 08:59 08/20/19 09:20 Tramadol HCl (Ultram) 50 mg BIDPRN PRN ORAL PAIN 1-6 08/19/19 17:15 08/26/19 17:14 08/20/19 17:05 Valproic Acid (Depakene) 250 mg Q8HR ORAL 08/19/19 22:00 09/18/19 21:59 08/20/19 15:10 Vitamin B Complex (Vitamin B Complex) 1 tab DAILY ORAL 08/20/19 09:00 11/18/19 08:59 08/20/19 09:19 Zolpidem Tartrate (Ambien) 5 mg HSPRN PRN ORAL INSOMNIA 08/19/19 17:15 08/26/19 17:14 Assessment/Plan Assessment/Plan Recurrence of pleural effusion, s/p tap, bed bound, hypertension, hypercholesterolemia. PLAN care noted follow up fluid oxygen care as is off load monitor for change impression, plan, and exam edited and reviewed in detail care discussed with Sebastian Miranda MD Aug 20, 2019 17:49
--- NOTE | 2019-08-20 19:48 | NUR ---
HAND-OFF: Report given to GIA Márquez.
--- NOTE | 2019-08-20 20:06 | NUR ---
NURSE NOTES: Report given to Emmy from [facility], informed family member cousin (Gypsy Lindsey) left a message regarding patient's discharge.
--- NOTE | 2019-08-20 21:31 | NUR ---
NURSE NOTES: Patient discharged back to [facility] via [facility]. VSS. Belongings returned, IV access discontinued, hospital bracelet taken off. Patient left unit without incident.
--- NOTE | 2019-08-22 13:34 | Discharge Summary ---
Discharge Summary Discharge Summary _ DATE OF ADMISSION: 08/19/2019 DATE OF DISCHARGE: 08/20/2019 DISCHARGED BY: Dr. Contreras REASON FOR ADMISSION: 48 years old female with past medical history of spina bifida, history of CVA with left hemiparesis, paraplegia, history of [employer] shunt, urostomy, diabetes mellitus, hypertension, hypercholesterolemia, was recently hospitalized and discharge on August 06 . At that time she was found to have a right pleural effusion, which was tapped and felt to be secondary to [employer] shunt. Fluid culture revealed no evidence of infection. COVID 19 testing was negative on prior admission. Patient admitted at this time with right posterior and lateral chest pain and recurrent right pleural effusion. Patient had no leukocytosis ,stable hemoglobin, hematocrit and platelet count. Stable electrolytes and renal parameters. LDH 317. Troponin negative. Chest x-ray demonstrated reaccumulating right pleural effusion since prior study on 08/05. Patient admitted to medical surgical floor. CONSULTANTS: pulmonary Dr. Haddad surgeon Dr Fischer [facility] COURSE: Patient admitted to medical surgical floor. House [employer] followed. Venous duplex bilateral lower extremity revealed no evidence of acute DVT. Patient undergone ultrasound-guided thoracentesis on 08/19 yielding only 300 mL of fluid. Fluid culture preliminary negative at the time of this dictation. Patient remained afebrile, no leukocytosis . Pathology of pleural fluid revealed no malignant cells, mild mixed inflammation. Supplemental oxygen was on board as needed to keep pulse oximetry above 92%. Pulse oximetry remained stable on room air. SNF medication continued. DVT and GI prophylaxis provided. Blood sugar was managed with sliding scale of insulin and long-acting insulin. Antiplatelet therapy with aspirin and statin continued. Blood pressure was managed with ARB and beta-carrillo. Psych medication continued. Protein supplements provided as per peritoneal dialysis registered nurse recommendation. Wound care for decubitus skin ulcers present on admission , provided as per surgeon recommendation. Supportive care provided. Patient clinically stabilized and was ready for discharge to nursing home facility for continuation of care. Due to rapid and unexpected improvement in patient condition , patient was discharged in 1 day. FINAL DIAGNOSES: Recurrent right pleural effusion, possibly due to [employer] shunt Status post ultrasound-guided thoracentesis of right pleural effusion, yielding 300 ml Pleuritic chest pain secondary to recurrent right pleural effusion History of [employer] shunt History of CVA with left hemiparesis Spina bifida with paraplegia Diabetes mellitus Protein calorie malnutrition Decubitus skin ulcer, POA DISCHARGE MEDICATIONS: See Medication Reconciliation list. DISCHARGE INSTRUCTIONS: Patient was discharged to the nursing home facility. Follow up with medical doctor at the facility. I have been assigned to dictate discharge summary for this account. I was not involved in the patient's management. Fernanda Patel NP Aug 22, 2019 13:34
== END 2019-08-20 21:40 | DRG 92 ==
LOC: EDBD 08:19 → EMR 09:02 → EDBEDREQ 09:59 → 4E 10:35 → EDBEDREQ 11:34
PROC: 0W9B3ZZ Drainage of Left Pleural Cavity, Percutaneous Approach (ICD-10-PCS; principal; 2019-08-20)
DX: T85.890A Other specified complication of nervous system prosthetic devices, implants and grafts, initial encounter (principal); J90 Pleural effusion, not elsewhere classified; I69.354 Hemiplegia and hemiparesis following cerebral infarction affecting left non-dominant side; E46 Unspecified protein-calorie malnutrition; Z68.1 Body mass index [BMI] 19.9 or less, adult; G82.20 Paraplegia, unspecified; Y83.8 Other surgical procedures as the cause of abnormal reaction of the patient, or of later complication, without mention of misadventure at the time of the procedure; L89.152 Pressure ulcer of sacral region, stage 2; I10 Essential (primary) hypertension; Z98.2 Presence of cerebrospinal fluid drainage device; Z88.0 Allergy status to penicillin; Z88.6 Allergy status to analgesic agent; Z91.040 Latex allergy status; E78.00 Pure hypercholesterolemia, unspecified; Q05.9 Spina bifida, unspecified
CPT/HCPCS: 36415; 71045; 76942; 80053; 83615; 83880; 84484; 85025; 85610; 85730; 87070; 87081; 87205; 88104; 89051; 93005; 93970; 96374; 99285; J1815; S5561